=== PATIENT | female | born 1960 | race African-American/Black ===

== ENCOUNTER 2016-07-24 12:14 | Inpatient (IN) ==
[2016-07-24] MEDS ORDERED: FUROSEMIDE 100 MG/10 ML VIAL IV STA (12:57)
[2016-07-24] MEDS ORDERED: methylPREDNISolone SOD SUC 125 MG/2 ML VIAL IV STA (12:57)
[2016-07-24] MEDS ORDERED: cefTRIAXone 1,000 MG in SODIUM CHLORIDE 0.9% 100 ML IV STA (12:57)
--- NOTE | 2016-07-24 12:59 | XRay Report ---
XR chest 1V portable Indication: SOB Comparison: Chest x-ray dated June 19, 2016 Technique: Single frontal view of the chest Findings: Marked cardiomegaly. Cardiac pacemaker apparatus again noted. There is mild opacification of the right lung base suspicious for consolidative process such as pulmonary edema or pneumonia. Osseous and surrounding soft tissue structures appear grossly unchanged. IMPRESSION: As above. PROCEDURE INTERPRETED AT [facility] DEPARTMENT OF RADIOLOGY Final Report Signed by: Dr Mickey Wallace
[2016-07-24] MEDS ORDERED: ALBUTEROL 2.5 MG/3 ML NEB RESP TX SCH (13:00)
[2016-07-24 13:12] LABS: ABG Base Excess 1.7 MMOL/L (-2.5-2.5); ABG HCO3 30.6 MMOL/L (20-26); ABG Oxygen Saturation 86.6 % (95-100); ABG PH 7.232 (7.35-7.45); ABG PO2 68.1 MM HG (80-95); ABG TCO2 32.9 MMOL/L (23-27)
[2016-07-24 13:14] LABS: ABG PCO2 74.5 MM HG (35-48)
--- NOTE | 2016-07-24 13:33 | EKG Report ---
Stationary ECG Study [facility] ER Test Date: 07/24/2016 12:32:15 PM Pat Name: BRUCE GONZALEZ Department: Room: Gender: F Superintendent Cemetery: [place] : 1960 Requested by: Ron Reyes Order Number: [id number] Reading MD: CHANEL GUTIERRES Intervals [place] Rate: 63 P: 64 CT: 220 QRS: 85 QRSD: 106 T: 123 QT: 433 QTc: 439 Interpretive Statements SINUS RHYTHM WITH PROLONGED CT INTERVAL POOR R-WAVE PROGRESSION Electronically Signed On 07-24-16 22:43:01 CLIENT SUPPORT REPRESENTATIVE by CHANEL GUTIERRES [email or web address]
[2016-07-24 13:36] LABS: Partial Thromboplastin Time 34.5 SECS (0-40)
[2016-07-24 13:38] LABS: PT Patient Result 21.6 SECS
[2016-07-24 13:39] LABS: Basophils % 0.1 % (0.0-0.8); Hemoglobin 9.7 GM/DL (12.0-16.0); Immature Granulocytes % 0.4 %; Immature Granulocytes Absolute 0.06 #; Lymphocytes # 0.9 10*3/uL (1.4-4.0); Lymphocytes % 6.3 % (21.3-54.2); Mean Corpuscular Hemoglobin 23 PG (27-34); Monocytes # 0.8 10*3/uL (0.11-0.8); Monocytes % 5.7 % (1.7-12.7); Neutrophils # 12.3 10*3/uL (1.4-7.4); Neutrophils % 87.5 % (38.7-73.9); Platelet Count 232 T/CUMM (130-400); Red Blood Count 4.23 MC/CUMM (3.8-5.5); Red Cell Distribution Width 21.8 % (9.3-17.3); White Blood Count 14.1 T/CUMM (4-12)
[2016-07-24] MEDS ORDERED: NALOXONE 0.4 MG/ML VIAL IV STA ×2 (13:41→13:47)
[2016-07-24 13:42] LABS: Hematocrit 34.7 VOL% (35.7-47.0)
[2016-07-24] MEDS ORDERED: methylPREDNISolone SOD SUC 125 MG/2 ML VIAL ONE (13:44)
[2016-07-24] MEDS ORDERED: NALOXONE 0.4 MG/ML VIAL ONE (13:44)
[2016-07-24] MEDS ORDERED: FUROSEMIDE 20 MG/2 ML VIAL ONE (13:44)
--- NOTE | 2016-07-24 13:44 | Emergency Department Note ---
Sybil Tipton Brittany, am scribing for, and in the presence of, Ron Nieto MD 13:34. Gerson Tipton Charles R, MD, personally performed the services described in this documentation, ascribed by Jadyn Devine in my presence, and it is both accurate and complete 343 . Arrival - Arrival Chief Complaint: Shortness of Breath Stated Complaint: CHF transfer ED Nursing Triage Note: Pt transfer from [facility] for SOB x 2 days. Mode of Arrival: Stretcher Limitations: No Limitations Source: Patient, Family Time Seen by Provider: 07/24/16 12:39 - History of Present Illness HPI Narrative: This is a 55 y/o female,who presents to the ED by EMS with c/o SOB which started yesterday. Her family states pt was seen at [facility] earlier today. Pt denies any chest pain. Her family states pt was admitted here on June 14, 2016 and stayed on the vent for a week. Pt denies being on home oxygen. Pt's family states "the past few days" pt has been sleeping more than normal. She denies any sleeping pills or meds which would make her sleepy. Pt has no other complaints/pain in the ED at this time. Pt has a PMHx of CHF, HTN, pacemaker, depression, COPD, and renal failure. Pt has had a cardiac cath and internal defibrillator. Pt has a family medical Hx of cancer, heart disease, HTN , and stroke. Pt is a current every day smoker. Consistency: constant Severity: moderate Allergies/Adverse Reactions: Allergies Allergy/AdvReac Type Severity Reaction Status Date / Time azithromycin [From Zithromax] AdvReac Severe Gastrointestinal Verified 06/14/16 08:35 Upset nalbuphine [From Nubain] AdvReac Intermediate Cramping Verified 06/14/16 08:35 of the Muscles Home Medications: Home Medications Medication Instructions Recorded Confirmed Type Digoxin Tab [Lanoxin Tab] 0.125 mg PO DAILY@1300 tablet 02/07/16 06/14/16 Rx Aspirin EC Tab 325 mg PO DAILY 04/06/16 06/14/16 History Carvedilol 3.125 mg PO BID 04/06/16 06/14/16 History Spironolactone [Aldactone] 25 mg PO DAILY 04/06/16 06/14/16 History hydrALAZINE TAB [Apresoline Tab] 10 mg PO Q8HR 04/06/16 06/14/16 History Furosemide Tab [Lasix Tab] 80 mg PO BID DIURETIC 06/14/16 06/14/16 History Isosorbide Mononitrate [Imdur] 30 mg PO DAILY 06/14/16 06/14/16 History Sacubitril/Valsartan [Entresto 24 1 each PO DAILY 06/14/16 06/14/16 History mg-26 mg Tablet] Review of System - Review of System 12 point system: reviewed and no additional remarkable complaints except as stated - Review of System Cardiovascular: Present: dyspnea on exertion. Absent: chest pain Medical,Surgical,& Family Hx - Medical History Cardio: History of: CHF (nonischemic cardiomyopathy, chronic), Hypertension, Pacemaker (icd, dual-chamber) No history of: Aneurysm, Cardiac Dysrhythmia Psychological: History of: Depression Respiratory: History of: COPD (she has pulmonary hypertension and severe tricuspid regurgitation) Renal: History of: Renal Failure (creatinine today is 2.2) No history of: Renal Problems - Surgical History Cardiac Surgeries: Sugical HX of: Cardiac Catheterization (no stent films not available done years ago at [place]), Internal Defibrillator (status post dual- chamber ICD by Dr. Sampson) Reproductive Surgeries: Patient denies;: Genitourinary Surgery - Family History Family History: Reports;: Family Cancer, Family Heart Disease, Family Hypertension, Family Stroke - Social History Smoking Status: Current every day smoker Exam Vital Signs: Vital Signs Temperature 97.2 F L 07/24/16 12:29 Pulse Rate 63 07/24/16 12:30 Respiratory Rate 25 H 07/24/16 12:30 Blood Pressure 88/49 07/24/16 12:30 O2 Sat by Pulse Oximetry 88 L 07/24/16 12:30 - General General appearance: alert, in distress, other (AMS) - Head Head exam: Present: other (Quintanilla's Palsy appearing ) - Eye Eye exam: Present: normal appearance, PERRL, EOMI - ENT ENT exam: Present: normal exam, normal oropharynx, mucous membranes moist - Neck Neck exam: Present: normal inspection, full ROM, trachea midline. Absent: tenderness, thyromegaly - Chest Chest inspection: Present: normal inspection, symmetric chest wall rise. Absent : tenderness, rash, abscess - Respiratory Respiratory exam: Present: rales, rhonchi, other (Tachypnea breathing as well as kussaloal Breathing, per ) - Cardiovascular Cardiovascular exam: Present: regular rate, normal rhythm, normal heart sounds. Absent: murmur, rubs, gallop, clicks - Abdominal Exam Abdominal exam: Present: soft, normal bowel sounds. Absent: distention, tenderness, guarding, rebound, rigidity - Extremities Exam Extremities exam: Present: normal inspection, full ROM, normal capillary refill. Absent: tenderness, pedal edema, joint swelling, calf tenderness - Back Exam Back exam: Present: normal inspection, full ROM. Absent: tenderness, muscle spasm, rashes - Neurological Exam Neurological exam: Present: alert, oriented X3, CN II-XII intact, reflexes normal. Absent: motor sensory deficit - Psychiatric Psychiatric exam: Present: normal affect, normal mood. Absent: depressed, agitated, anxious - Skin Skin exam: Present: warm, dry, intact, normal color. Absent: rash, cyanosis, diaphoresis Course - Consultations Consultation #1: Hospitalist will admit patient Time: 13:40 Results - Labs CBC & BMP: 07/24/16 12:52 07/24/16 13:45 Lab Results: I have reviewed the patients labs Labs: All labs reviewed from previous facility Critical Care Time Critical Care Time: Yes Total Critical Care Time: 60 Disposition Clinical Impression: Tobacco abuse, COPD (chronic obstructive pulmonary disease), Nonischemic cardiomyopathy, Congestive heart failure, NYHA class 4, Respiratory distress, Weakness, Congestive heart failure, Acute exacerbation of chronic obstructive airways disease, Acute respiratory acidosis, ejection fraction 15%, Narcotic abuse, Hypercapnia Case discussed with: patient, patient's family Disposition: Still a Patient Condition: Critical Time of Disposition: 13:43
[2016-07-24 13:46] LABS: Albumin 3.1 G/DL (3.4-5.0); Bilirubin,Total 1.8 MG/DL (0.2-1.0); Calcium 8.4 MG/DL (8.5-10.1); Magnesium 2.5 MG/DL (1.8-2.4); Osmolality,Calculated 296.1 MOS/KG (273-304); Potassium 4.5 MMOL/L (3.5-5.1); Troponin I Only 0.045 NG/ML (0.00-0.045)
[2016-07-24] MEDS ORDERED: ONDANSETRON 4 MG/2 ML VIAL IV PRN (13:57)
[2016-07-24] MEDS ORDERED: DOCUSATE SODIUM 100 MG CAPSULE PO PRN (13:57)
[2016-07-24] MEDS ORDERED: cefTRIAXone 1,000 MG in SODIUM CHLORIDE 0.9% 100 ML IV SCH (14:00)
--- NOTE | 2016-07-24 14:08 | Hospitalist History & Physical ---
Assessment and Plan - Time spent with patient Time spent with patient: Greater than 30 minutes (due to assessment, plan and documentation) (1) Acute respiratory failure Status: Acute Assessment and plan: admit to unit rocephin, solumedrol pulmonary consult Current Visit: No (2) Narcotic abuse Status: Acute Current Visit: Yes History of Present Illness Chief complaint: sent from [facility] for SOB History of present illness: Ms. Corona is a 55 year old female who was sent from [facility] for shortness of breath. She was treated with a duoneb there. She is very short of breath and is on an hour long neb at this time, and may end up requiring intubation for her acute respiratory failure. Lungs very course. She is being given Lasix, solumedrol, rocephin and narcan. She was given Narcan after there were records found that she has abused opiates before. After administration of Narcan, she became more alert, thrashing about in the bed, and screaming incoherently. There is no family in the room for history. According to her medications, she has a hx of likely heart failure, and HTN. She will be admitted to the ICU for close observation. Further plan and addendum to follow by Dr. Ashley Valle. Home Medications Medication Instructions Recorded Confirmed Type Digoxin Tab [Lanoxin Tab] 0.125 mg PO DAILY@1300 tablet 02/07/16 06/14/16 Rx Aspirin EC Tab 325 mg PO DAILY 04/06/16 06/14/16 History Carvedilol 3.125 mg PO BID 04/06/16 06/14/16 History Spironolactone [Aldactone] 25 mg PO DAILY 04/06/16 06/14/16 History hydrALAZINE TAB [Apresoline Tab] 10 mg PO Q8HR 04/06/16 06/14/16 History Furosemide Tab [Lasix Tab] 80 mg PO BID DIURETIC 06/14/16 06/14/16 History Isosorbide Mononitrate [Imdur] 30 mg PO DAILY 06/14/16 06/14/16 History Sacubitril/Valsartan [Entresto 24 1 each PO DAILY 06/14/16 06/14/16 History mg-26 mg Tablet] Allergies Allergy/AdvReac Type Severity Reaction Status Date / Time azithromycin [From Zithromax] AdvReac Severe Gastrointestinal Verified 06/14/16 08:35 Upset nalbuphine [From Nubain] AdvReac Intermediate Cramping Verified 06/14/16 08:35 of the Muscles Medical,Surgical,& Family Hx - Medical History Cardio: History of: CHF (nonischemic cardiomyopathy, chronic), Hypertension, Pacemaker (icd, dual-chamber) No history of: Aneurysm, Cardiac Dysrhythmia Psychological: History of: Depression Respiratory: History of: COPD (she has pulmonary hypertension and severe tricuspid regurgitation) Renal: History of: Renal Failure (creatinine today is 2.2) No history of: Renal Problems - Surgical History Cardiac Surgeries: Sugical HX of: Cardiac Catheterization (no stent films not available done years ago at [place]), Internal Defibrillator (status post dual- chamber ICD by Dr. Sampson) Reproductive Surgeries: Patient denies;: Genitourinary Surgery - Family History Family History: Reports;: Family Cancer, Family Heart Disease, Family Hypertension, Family Stroke - Social History Smoking Status: Current every day smoker Frequency of Alcohol Use: Unknown Type of Drug Use: Unknown Marital Status: Unknown Functional capacity: independent ambulation ROS unobtainable: due to mental status (she is combative and agitated at this time. ) Exam - Constitutional General appearance: normal weight, severe distress (initially.) - Head Head exam: Present: normal inspection, normocephalic - Eye Eye exam: Present: EOMI. Absent: scleral icterus Pupils: Present: TEJINDER, normal accommodation - ENT ENT exam: Present: normal exam, normal oropharynx - Neck Neck exam: Present: normal inspection. Absent: lymphadenopathy - Respiratory Respiratory exam: Present: other (course lung sounds. ) - Cardiovascular Cardiovascular exam: Present: regular rate and rhythm. Absent: carotid bruit - GI/Abdominal GI/Abdominal exam: Present: normal bowel sounds, soft. Absent: tenderness - Extremities Exam Extremities exam: Present: normal inspection. Absent: edema - Back Exam Back exam: Present: normal inspection. Absent: muscle spasm - Neurological Exam Neurological exam: Present: alert, altered - Psychiatric Psychiatric exam: Present: agitated - Skin Skin exam: Present: normal color, warm, dry, intact Results - Labs CBC & BMP: 07/24/16 12:52 07/24/16 13:45 Lab Results: I have reviewed the past 24 hour labs
[2016-07-24] MEDS ORDERED: cefTRIAXone 1,000 MG VIAL ONE (14:24)
[2016-07-24] MEDS ORDERED: SODIUM CHLORIDE 0.9% 100 ML IV ONE (14:24)
[2016-07-24] MEDS ORDERED: ALBUTEROL/IPRATROPIUM 3 ML NEB RESP TX PRN (15:13)
[2016-07-24] MEDS ORDERED: ALBUTEROL/IPRATROPIUM 3 ML NEB RESP TX ONE (15:15)
[2016-07-24 15:36] LABS: ABG HCO3 31.6 MMOL/L (20-26); ABG Oxygen Saturation 89.7 % (95-100); ABG PH 7.256 (7.35-7.45); ABG PO2 73.2 MM HG (80-95); ABG TCO2 33.8 MMOL/L (23-27)
[2016-07-24 15:38] LABS: ABG PCO2 72.7 MM HG (35-48)
[2016-07-24] MEDS ORDERED: FUROSEMIDE 40 MG/4 ML VIAL IV ONE (15:48)
[2016-07-24] MEDS: PIPERACILLIN/TAZOBACTAM 3,375 MG in SODIUM CHLORIDE 0.9% 100 ML IV SCH ×2 (16:52→23:36)
[2016-07-24] MEDS: ENOXAPARIN 30 MG/0.3 ML SYRINGE SUBCUT SCH (16:52)
[2016-07-24] MEDS: CARVEDILOL 3.125 MG TABLET PO SCH (17:01)
--- NOTE | 2016-07-24 17:02 | Ultrasound Report ---
Exam: Bilateral lower extremity venous Doppler ultrasound Comparison: 10/07/2015 Clinical history: Leg edema, heart failure Technique: Duplex scan of the lower extremity veins using B-mode/grayscale scaled imaging and Doppler spectral analysis and color flow. Findings: Major venous structures of the lower extremities demonstrate a normal course and caliber. Normal color-flow study and spectral analysis. There is normal compression and augmentation of bilateral common femoral, superficial femoral and popliteal veins. The proximal bilateral greater saphenous veins appear to be patent. Impression: No evidence to suggest deep venous thrombosis within either lower extremity. Ultrasound images were captured and stored. PROCEDURE INTERPRETED AT [facility] DEPARTMENT OF RADIOLOGY Final Report Signed by: Dr. Tarsha Parmar
[2016-07-24] MEDS: LACTULOSE 20 GM/30 ML UDCUP PO SCH ×2 (18:00→23:42)
[2016-07-24] MEDS ORDERED: FUROSEMIDE 100 MG/10 ML VIAL ONE (19:57)
[2016-07-24] MEDS: ALBUTEROL/IPRATROPIUM 3 ML NEB RESP TX SCH ×2 (19:59→23:40)
[2016-07-24] MEDS: FUROSEMIDE 40 MG/4 ML VIAL IV SCH (20:01)
[2016-07-24] MEDS: methylPREDNISolone SOD SUC 40 MG/1 ML VIAL IV SCH (20:01)
[2016-07-24 20:05] LABS: ABG Base Excess 2.1 MMOL/L (-2.5-2.5); ABG HCO3 31.5 MMOL/L (20-26); ABG Oxygen Saturation 91.4 % (95-100); ABG PH 7.218 (7.35-7.45); ABG TCO2 33.9 MMOL/L (23-27); Pt O2 Delivery Device BIPAP
--- NOTE | 2016-07-24 20:21 | Pulmonology Consult Note ---
History of Present Illness Chief complaint: Acute on chronic respiratory failure for oxygen and carbon dioxide. CHF History of present illness: Ms. Corona is a 55 year old black female transferred here from [facility]. She has respiratory failure for carbon dioxide and oxygen. I been asked to see in pulmonary consultation. This patient is not particularly interested in answer my questions. She can be aroused. Present her review of systems is noncontributory. The patient's daughter told Dr. Nikole Ayala as far as she knew the patient been doing well at home. She developed diarrhea. As far she knows to make patient been taken her medicines properly. She developed an altered mental status. At this point the remainder the review of systems is 9 contributory except the patient was given Narcan and this seemed to help her from a mentation standpoint but it was not long-lasting. Allergies. And Zithromax Home medicines. Lanoxin. Aspirin. Coreg. Aldactone. Apresoline. Lasix 80 mg p.o. twice daily. Immature 30 mg daily. Entresto Past history. Patient was here in March 2016 under the care of Dr. Callejas and Dr. Dang. She had a diagnosis of chronic nonischemic cardiomyopathy. High blood pressure. Cardiac pacemaker. Also a history of depression and COPD. She has had pulmonary hypertension with severe tricuspid regurgitation. During her last hospitalization I do not see any ABGs. Her last hospitalization her creatinines were about 1.4. Today they are elevated 2.2. Family history. Positive for heart disease high blood pressure stroke and cancer. Social history patient is a cigarette smoker who continues to smoke. Chest x-ray. Core bovine this is a portable film. Patient appears to have increased markings at the right base. The left base is not seen. There appears to be central vascular enlargement or engorgement. I reviewed x-rays going back to January 2016. These findings come and go which makes me think we are dealing with pulmonary edema. ABGs. FiO2 45%. PH 7.256. PCO2 72.7. PO2 73.2. Bicarb 31.6. Repeat ABGs. FiO2 45%. BiPAP. PH is 7.218. PCO2 is 79. PO2 is 80. Bicarb is 31.5 Review of previous ABGs. On 02/04/2016 on FiO2 28% pH was 7.32. PCO2 was 58.8. PO2 is 25.9. Bicarb was 28. On 02/07/2016 room air blood gases showed a pH of 7.31. PCO2 52.4. PO2 35.4. Bicarb of 23.9. Lab. H&H is 9.7/34.7. White count is 14,100. Platelets are 233,000. Creatinine is 2.3. In March 2016 the creatinine was 1.2. Total bilirubin is 1.8. AST is elevated. ALT is normal. Alkaline phosphatase mildly elevated at 159. Ammonia level is elevated at 46. Natruretic peptide is 4202. Total protein is 7. Albumin is low at 3.1. Globulins are elevated 3.9. Dig level is elevated Physical exam. Vital signs. See below Neuropsychiatric. Arousable. Sleepy. Not a willing historian. Chest. I cannot hear wheezes or rales. Heart. Far lateral PMI. Abdomen. Nondistended. Extremities. Nothing to suggest deep venous thrombophlebitis. Note Doppler venograms and negative for deep venous thrombophlebitis. Neck. No meningismus. Lymphatics. No submandibular cervical supraclavicular or epitrochlear adenopathy. Face. Symmetrical. The remainder the physical exam is noncontributory. Impression. 1. Severe nonischemic cardiomyopathy with a very low ejection fraction. 2. COPD with respiratory failure for oxygen and carbon dioxide. This patient to be appears to be a CO2 retainer may do better with a lower FiO2. 3. Tobacco abuser who continues to smoke 4. Dig toxicity 5. Acute renal failure. Consider the possibility dehydration could be involved. Consider the possibility of BARBRA inhibitors. 7. See past history 8. Mild liver failure. Plan. 1. Decrease FiO2 to 25% and repeat ABGs in 30 minutes 2. Patient has been on Lasix 80 mg p.o. twice daily. She has not had a dose yet. I will start this at 80 IV push every 12 hours unless cardiology thinks otherwise. 3. Cardiology consultation. 4. Consider renal consultation. 5. Sputum for Gram stain culture sensitivityABGs ABGs. Cold agglutinins. Legionella titer. 6. Daily chest x-ray and ABGs. 7. Agree with antibiotics and steroids on the chance that we are dealing with pneumonia. 6. Daily chest x-ray and ABGs. Daily lab. 7. See orders. Home Medications Medication Instructions Recorded Confirmed Type Aspirin EC Tab 325 mg PO DAILY 04/06/16 07/24/16 History Carvedilol 3.125 mg PO BID W/MEALS 04/06/16 07/24/16 History Spironolactone [Aldactone] 25 mg PO DAILY 04/06/16 07/24/16 History hydrALAZINE TAB [Apresoline Tab] 10 mg PO Q8HR 04/06/16 07/24/16 History Furosemide Tab [Lasix Tab] 80 mg PO BID 06/14/16 07/24/16 History Isosorbide Mononitrate [Imdur] 15 mg PO DAILY 06/14/16 07/24/16 History Digoxin Tab [Lanoxin Tab] 0.125 mg PO DAILY 07/24/16 07/24/16 History Sacubitril/Valsartan [Entresto 49 1 each PO DAILY 07/24/16 07/24/16 History mg-51 mg Tablet] Allergies Allergy/AdvReac Type Severity Reaction Status Date / Time azithromycin [From Zithromax] AdvReac Severe Gastrointestinal Verified 06/14/16 08:35 Upset nalbuphine [From Nubain] AdvReac Intermediate Cramping Verified 06/14/16 08:35 of the Muscles Exam (Pulmonay) H&P - Constitutional Vitals: Period Temp Pulse Resp BP Sys/Philippe Pulse Ox Last 24 Hr 97.2 F-98.2 F 57-71 16-30 82-122/39-70 87-100 Medical,Surgical,& Family Hx - Medical History Cardio: History of: Cardiac Dysrhythmia, CHF (nonischemic cardiomyopathy, chronic), Hypertension, Pacemaker (icd, dual-chamber) No history of: Aneurysm Psychological: History of: Depression Rheumatology: History of;: Gout Respiratory: History of: COPD (she has pulmonary hypertension and severe tricuspid regurgitation), Pulmonary Hypertension Renal: History of: Renal Failure (creatinine today is 2.2) No history of: Dialysis, Renal Problems Musculoskeletal: No history of: Amputation Hematology: History of: Anemia (NOT CURRENT) - Surgical History Cardiac Surgeries: Sugical HX of: Cardiac Catheterization (no stent films not available done years ago at [place]), Internal Defibrillator (status post dual- chamber ICD by Dr. Sampson) Thoracic Surgeries: Patient denies;: Organ Transplant Abdominal Surgeries: Patient denies: Abdominal Surgery Reproductive Surgeries: Patient denies;: Genitourinary Surgery, Gynecologic Surgery - Family History Family History: Reports;: Family Cancer, Family Diabetes, Family Heart Disease, Family Hypertension, Family Stroke Denies;: Family Hematology, Family Psychiatric Problems, Additional Family History - Social History Smoking Status: Current every day smoker Frequency of Alcohol Use: None Type of Drug Use: Unknown Results - Labs CBC & BMP: 07/24/16 12:52 07/24/16 13:45
[2016-07-24 20:55] LABS: ABG Base Excess 2.1 MMOL/L (-2.5-2.5); ABG HCO3 31.3 MMOL/L (20-26); ABG Oxygen Saturation 83.5 % (95-100); ABG PH 7.223 (7.35-7.45); ABG PO2 62.5 MM HG (80-95); ABG TCO2 33.7 MMOL/L (23-27)
[2016-07-24 20:57] LABS: ABG PCO2 77.8 MM HG (35-48)
[2016-07-24] MEDS ORDERED: FUROSEMIDE 80 MG TABLET PO SCH (21:00)
[2016-07-24] MEDS: DEXTROSE 5% NACL 0.9% 1,000 ML IV SCH (21:16)
[2016-07-24] MEDS: hydrALAZINE 10 MG TABLET PO SCH (21:19)
[2016-07-24] MEDS ORDERED: SODIUM CHLORIDE 0.9% 500 ML IV ONE (22:40)
[2016-07-24] MEDS: DOBUTamine 500 MG/250 ML PREMIX IV SCH (23:38)
[2016-07-25] MEDS: methylPREDNISolone SOD SUC 40 MG/1 ML VIAL IV SCH ×4 (01:15→19:00)
[2016-07-25] MEDS: ALBUTEROL/IPRATROPIUM 3 ML NEB RESP TX SCH ×6 (03:29→23:22)
[2016-07-25 03:38] LABS: ABG Base Excess 1.3 MMOL/L (-2.5-2.5); ABG HCO3 25.4 MMOL/L (20-26); ABG Oxygen Saturation 88.1 % (95-100); ABG PCO2 68.8 MM HG (35-48); ABG TCO2 28.1 MMOL/L (23-27); Pt O2 Delivery Device BIPAP
[2016-07-25] MEDS: hydrALAZINE 10 MG TABLET PO SCH ×3 (05:10→21:11)
[2016-07-25 05:31] LABS: Basophils % 0.1 % (0.0-0.8); Immature Granulocytes % 0.3 %; Immature Granulocytes Absolute 0.03 #; Lymphocytes # 0.7 10*3/uL (1.4-4.0); Lymphocytes % 6.7 % (21.3-54.2); Mean Corpuscular HGB Conc 27.2 GM/DL (32-36); Mean Corpuscular Hemoglobin 23 PG (27-34); Mean Corpuscular Volume 82.7 FL (87-102); Mean Platelet Volume 9.9 FL (9.6-12.0); Monocytes # 0.4 10*3/uL (0.11-0.8); Monocytes % 3.2 % (1.7-12.7); NRBC # 0.07 10*3/uL; Neutrophils # 9.9 10*3/uL (1.4-7.4); Neutrophils % 89.7 % (38.7-73.9); Platelet Count 223 T/CUMM (130-400); Red Blood Count 4.22 MC/CUMM (3.8-5.5); Red Cell Distribution Width 21.9 % (9.3-17.3); White Blood Count 11.1 T/CUMM (4-12)
[2016-07-25 05:38] LABS: Hematocrit 34.2 VOL% (35.7-47.0); Hemoglobin 9.6 GM/DL (12.0-16.0)
[2016-07-25 05:45] LABS: Magnesium 2.4 MG/DL (1.8-2.4)
[2016-07-25 05:49] LABS: Polychromasia Slight
[2016-07-25 05:50] LABS: Hypochromasia 1+; Microcytosis 2+; Target Cells Slight
[2016-07-25 05:51] LABS: Spherocytes Slight
[2016-07-25 05:52] LABS: Macrocytosis Slight
[2016-07-25] MEDS: LACTULOSE 20 GM/30 ML UDCUP PO SCH ×2 (05:52→13:35)
[2016-07-25 06:00] LABS: Calcium 7.8 MG/DL (8.5-10.1); Magnesium 2.5 MG/DL (1.8-2.4); Osmolality,Calculated 306.7 MOS/KG (273-304)
[2016-07-25 06:20] LABS: Albumin 2.6 G/DL (3.4-5.0); Bilirubin,Total 1.3 MG/DL (0.2-1.0); Calcium 7.5 MG/DL (8.5-10.1); Osmolality,Calculated 305.7 MOS/KG (273-304); Potassium 4.2 MMOL/L (3.5-5.1); Total Protein 6.4 G/DL (6.4-8.3)
--- NOTE | 2016-07-25 07:28 | XRay Report ---
XR chest 1V portable Indication: SOB Comparison: Chest x-ray dated July 24, 2016 Technique: Single frontal view of the chest Findings: Continued marked cardiomegaly. Redemonstration of hazy opacification within the right lower lung suspicious for pulmonary edema or pneumonia. There is a small left pleural effusion. Osseous and surrounding soft tissue structures appear grossly unchanged. Cardiac pacemaker apparatus again noted. IMPRESSION: As above. PROCEDURE INTERPRETED AT [facility] DEPARTMENT OF RADIOLOGY Final Report Signed by: Dr Mickey Wallace
--- NOTE | 2016-07-25 08:30 | Hospitalist Progress Note ---
Assessment and Plan (1) Congestive heart failure, NYHA class 4 Status: Chronic Assessment and plan: 1)exacerbation of chronic resp failure from COPD with co2 narcosis- pCO2 is coming down, she is alert and oriented now with mentation back to baseline. On antibotics, steroids, nebs, follow cultures and stop antibiotics if cultures negative. BIPAP is gradually lowering her pCO2, continue as set, with breaks for meals. 2)severe cardiomyopathy with class 4 CHF- she has some LE edema, and some pulm edema, but overall she is not dramatically volume overloaded. She and her daughter say she has been doing well at home prior to the diarrhea. She was not having shortness of breath more than her baseline. Dobutamine helped to improve her UOP with improved cardiac output. Held for now because of some PVCs. DR Callejas to see this morning. 3)YVONNE- her creatinine was 0.6 when discharged 2 weeks ago. I think this is due to cardiorenal syndrome and dehydration from diarrhea. monitor, UOP picking up. 4)smoking- counselled cessation 5)AICD 6)elevated bili, transaminases, ammonia- I added lactulose yesterday in case her ammonia which was a little elevated was contributing to her altered mental status. She has passive congestion of her liver from her heart failure. Current Visit: Yes Qualifiers: Congestive heart failure type: unspecified congestive heart failure type Qualified Code(s): I50.9 - Heart failure, unspecified (2) Tobacco abuse Status: Chronic Current Visit: Yes (3) ICD (implantable cardioverter-defibrillator) in place Status: Chronic Current Visit: No (4) Nonischemic cardiomyopathy Status: Chronic Current Visit: Yes (5) Acute exacerbation of chronic obstructive airways disease Status: Acute Current Visit: Yes (6) Acute respiratory acidosis Status: Acute Current Visit: Yes (7) Digoxin toxicity Status: Acute Current Visit: Yes (8) CO2 narcosis Status: Acute Current Visit: Yes Hospitalist: Subjective Interval history: Mrs Corona looks better this morning. She remains alert and comfortable, with sats aroudn 90 on BIPAP. Dobutamine was started around 3am when her BP dropped. A 500 cc bolus was also given. Her Bp improved and her UOP increased also. Prior to that she had very little urine out despite IV lasix. She denies pain. She had one diarrheal stool yesterday but cultures Cdiff and O& P were not collected. No pain, no nausea. Wants breakfast. Exam - Constitutional Vitals: Period Temp Pulse Resp BP Sys/Philippe Pulse Ox Last 24 Hr 97.2 F-98.4 F 57-74 10-30 68-131/39-70 84-100 General appearance: normal weight, no acute distress - Head Head exam: Present: normocephalic, atraumatic - Eye Eye exam: Present: EOMI. Absent: scleral icterus - Respiratory Respiratory exam: Present: rales, rhonchi - Cardiovascular Cardiovascular exam: Present: regular rate and rhythm - GI/Abdominal GI/Abdominal exam: Present: normal bowel sounds, soft. Absent: tenderness - Extremities Exam Extremities exam: Present: edema (in LE to thighs, not severe) - Neurological Exam Neurological exam: Present: alert, oriented X3 - Skin Skin exam: Present: warm, dry Results - Labs CBC & BMP: 07/25/16 05:03 07/25/16 05:02 Lab Results: I have reviewed the past 24 hour labs
[2016-07-25] MEDS ORDERED: FUROSEMIDE 20 MG/2 ML VIAL ONE (08:35)
[2016-07-25] MEDS: ASPIRIN EC 325 MG TABLET PO SCH (08:43)
[2016-07-25] MEDS: PANTOPRAZOLE 40 MG TABLET PO SCH (08:44)
[2016-07-25] MEDS: ISOSORBIDE MONONITRATE 30 MG TABLET PO SCH (08:44)
[2016-07-25] MEDS: SPIRONOLACTONE 25 MG TABLET PO SCH (08:44)
[2016-07-25] MEDS: SACUBITRIL/VALSARTAN 49-51 MG TABLET PO SCH (08:44)
[2016-07-25] MEDS: FUROSEMIDE 40 MG/4 ML VIAL IV SCH ×2 (08:45→17:00)
[2016-07-25 10:32] LABS: Allen Test Positive
[2016-07-25 10:33] LABS: ABG Base Excess 3.1 MMOL/L (-2.5-2.5); ABG HCO3 26.9 MMOL/L (20-26); ABG Oxygen Saturation 84.9 % (95-100); ABG PCO2 66.9 MM HG (35-48); ABG PO2 58.6 MM HG (80-95); ABG TCO2 29.2 MMOL/L (23-27)
--- NOTE | 2016-07-25 10:57 | Pulmonology Progress Note ---
Pulmonary - PN: Subj Interval history: This is a 55-year-old black female whom I saw in pulmonary consultation on the night of 07/24/2016. I thought that her main problems were. 1. Severe nonischemic cardiomyopathy with a very low ejection fraction. 2. COPD with respiratory failure for oxygen and carbon dioxide. This patient to be appears to be a CO2 retainer may do better with a lower FiO2. 3. Tobacco abuser who continues to smoke 4. Dig toxicity 5. Acute renal failure. Consider the possibility dehydration could be involved. Consider the possibility of BARBRA inhibitors. 7. See past history 8. Mild liver failure with elevated ammonia level.. 07/25/2016. Today's chest x-ray is about the same. Patient has core bovine. There are increased right perihilar and right lower lung markings which I think are probably congestive heart failure. She was started on dobutamine last night and also given Lasix and has begun to diurese. Her creatinine is 2.30. This is higher than it has recently been when she has been in the hospital. Electrolytes are normal. Natruretic peptide is fallen from 4202 2 2947. Dig level is dropped from 2.5-1.8. ABGs this morning on FiO2 of 30% and BiPAP show a pH of 7.25. PCO2 is 68.8. PO2 is 66. Bicarb is 25.4 later on the on FiO2 30 2. and no BiPAP. PH was 7.28. PCO2 was 66.9. PO2 is 58.6. Bicarb was 26.9. I think the patient can bypass the BiPAP for the present time. I think will gradually be able to decrease her FiO2. She will seek the same level of oxygenation but breathe faster lower FiO2. Patient's more alert this morning. I have days discussed the case with Dr. Ayala and we are coordinating care. Physical exam. Vital signs. See below Psychiatric. Much more alert. At times the patient is cooperative. Face is symmetrical. Patient has an element of exophthalmos Neck. Symmetrical. No mass Lymphatics. No submandibular cervical supraclavicular adenopathy. No epitrochlear adenopathy. Chest. Mild large airway congestion. No wheezes. Heart. Far lateral PMI Abdomen. Rare bowel sounds. Extremities. Nothing to suggest deep venous thrombophlebitis. Doppler venograms dated 07/24/2016 are negative for deep venous thrombophlebitis. Neurologic. Cranial nerves appear to be intact. Patient moves all fours. The remainder of the physical exam is negative. Plan. 1. Decrease FiO2 to 2 L/min. 2. Patient's on Lasix and dobutamine. 3. Cardiology consultation. 4. Consider renal consultation. Acute renal failure 5. Sputum for Gram stain culture Cold agglutinins. Legionella titer. 6. Daily chest x-ray and ABGs. 7. Agree with antibiotics and steroids on the chance that we are dealing with pneumonia. 6. Daily chest x-ray and ABGs. Daily lab. TSH 7. See orders. Exam (Progress Note) - Constitutional Vitals: Period Temp Pulse Resp BP Sys/Philippe Pulse Ox Last 24 Hr 97.2 F-98.4 F 57-74 10-30 68-131/39-70 84-100 Results - Labs CBC & BMP: 07/25/16 05:03 07/25/16 05:02
--- NOTE | 2016-07-25 11:10 | Cardiology Consult Note ---
Zara Tipton April RN, am scribing for, and in the presence of, Tom Callejas MD 11:06. Assessment and Plan - Time spent with patient Time spent with patient: Greater than 30 minutes (due to assessment, planning, and documentation) (1) Acute respiratory acidosis Status: Acute Assessment and plan: This may have been secondary to narcotics, or it could've been related to using 100% nonrebreather during transport. This appears to be improving. Current Visit: Yes (2) Congestive heart failure Status: Acute Current Visit: Yes (3) Digoxin toxicity Status: Acute Assessment and plan: This has resolved. Her digoxin level is normal today. Current Visit: Yes (4) Nonischemic cardiomyopathy Status: Chronic Assessment and plan: EF 15% by ECHO 06/14/16 with advanced diastolic dysfunction and severe tricuspid regurgitation. 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 Actually, her heart failure appears to be relatively well compensated right now. Current Visit: Yes (5) Tobacco abuse Status: Chronic Current Visit: Yes (6) ICD (implantable cardioverter-defibrillator) in place Status: Chronic Assessment and plan: This appears to be functioning normally. Current Visit: No History of Present Illness - Data of Consult Patient: known to practice within the last 3 years Consult date: 07/24/16 Requesting Physician: Ashley Valle - Consult Narrative Reason for consult: shortness of breath History of present illness: Ms. Corona is a 55 year old female who is followed by Dr. Valadez with a history of CHF, renal failure, COPD, NICM, paroxysmal atrial fibrillation, and syncopal episodes. She had ICD placed at [facility] in 2012. She is a poor historian and was somewhat drowsy today so much of this information is obtained from previous records. She is a highly complicated, critically ill patient who was seen in the intensive care unit. According to the record, she was doing well at home but began having some diarrhea. She was taken to her local hospital for evaluation. The patient has severe class IV congestive heart failure at baseline, and was transferred from [facility] for "shortness of breath". Apparently, she was placed on 100% nonrebreather during transport, which contributed to CO2 narcosis on arrival here. She was apparently very lethargic. She was given Lasix, Solumedrol, Rocephin, and Narcan (records had shown previous opiate abuse). Apparently she became more alert after being given Narcan. The patient denies being short of breath on admission, says that she came to the hospital because she "felt bad". She denies having any chest pain. She has had very little urine output, and was started on dobutamine for low blood pressure. She had been in sinus rhythm, but after the dobutamine was started she has had periods of bigeminy. Magnesium is 2.5 and potassium is 4.0. Digoxin level was 2.5 on admission and is now 1.8. She is on BiPap and sats are in the 90's. She has an internal cardiac defibrillator and there have been no defibrillator shocks or problems according to the patient. Current Medications Acetaminophen (Tylenol Tab) 325 mg PO Q4H PRN PRN Reason: fever, headache/body aches Albuterol/Ipratropium (Duoneb) 3 ml RESP TX RT Q6H PRN PRN Reason: Shortness of Breath/Wheezing Albuterol/Ipratropium (Duoneb) 3 ml RESP TX RT Q4H [facility] Last Admin: 07/25/16 07:17 Dose: 3 ml Aspirin () 325 mg PO DAILY [facility] Carvedilol (Coreg) 3.125 mg PO BID W/MEALS [facility] Last Admin: 07/24/16 17:01 Dose: Not Given Clorazepate Dipotassium (Tranxene) 3.75 mg PO BID PRN PRN Reason: Anxiety Docusate Sodium (Colace Cap) 100 mg PO BID PRN PRN Reason: Constipation Enoxaparin Sodium (Lovenox) 30 mg SUBCUT Q24H [facility] Last Admin: 07/24/16 16:52 Dose: 30 mg Furosemide (Lasix Inj) 80 mg IV BID [facility] Last Admin: 07/24/16 20:01 Dose: 80 mg Hydralazine HCl (Apresoline Tab) 10 mg PO Q8HR [facility] Last Admin: 07/25/16 05:10 Dose: Not Given Piperacillin Sod/Tazobactam (Sod 3,375 mg/ Sodium Chloride) 100 mls @ 25 mls/ hr IV Q8H [facility] Last Infusion: 07/25/16 05:10 Dose: Infused Dextrose/Sodium Chloride (D5 Ns) 1,000 mls @ 75 mls/hr IV .[id number] [facility] Last Admin: 07/24/16 21:16 Dose: 75 mls/hr Dobutamine HCl/Dextrose () 500 mg in 250 mls @ 3.771 mls/hr IV TITRATE MONSE; 2 MCG/KG/MIN PRN Reason: Protocol Last Titration: 07/25/16 03:04 Dose: 10.23 mcg/kg/min, 19.3 mls/hr Isosorbide Mononitrate (Imdur) 15 mg PO DAILY [facility] Lactulose (Chronulac) 20 gm PO Q6HR [facility] Last Admin: 07/25/16 05:52 Dose: Not Given Methylprednisolone Sodium Succinate (Solumedrol) 40 mg IV Q6H [facility] Last Admin: 07/25/16 05:59 Dose: 40 mg Ondansetron HCl (Zofran Inj) 4 mg IV Q4H PRN PRN Reason: Nausea Pantoprazole Sodium (Protonix Tab) 40 mg PO DAILY [facility] Spironolactone (Aldactone) 25 mg PO DAILY [facility] CC: Ashley Valle MD - Home Medications and Allergies Home Medications: Home Medications Medication Instructions Recorded Confirmed Type Aspirin EC Tab 325 mg PO DAILY 04/06/16 07/24/16 History Carvedilol 3.125 mg PO BID W/MEALS 04/06/16 07/24/16 History Spironolactone [Aldactone] 25 mg PO DAILY 04/06/16 07/24/16 History hydrALAZINE TAB [Apresoline Tab] 10 mg PO Q8HR 04/06/16 07/24/16 History Furosemide Tab [Lasix Tab] 80 mg PO BID 06/14/16 07/24/16 History Isosorbide Mononitrate [Imdur] 15 mg PO DAILY 06/14/16 07/24/16 History Digoxin Tab [Lanoxin Tab] 0.125 mg PO DAILY 07/24/16 07/24/16 History Sacubitril/Valsartan [Entresto 49 1 each PO DAILY 07/24/16 07/24/16 History mg-51 mg Tablet] Allergies/Adverse Reactions: Allergies Allergy/AdvReac Type Severity Reaction Status Date / Time azithromycin [From Zithromax] AdvReac Severe Gastrointestinal Verified 06/14/16 08:35 Upset nalbuphine [From Nubain] AdvReac Intermediate Cramping Verified 06/14/16 08:35 of the Muscles - Constitutional Constitutional: Present: as per HPI - EENT Eyes: Absent: blurry vision, loss of vision Ears: Absent: decreased hearing, ear discharge, ear pain Nose, mouth and throat: Absent: epistaxis, headache(s), neck pain, sore throat - Cardiovascular Cardiovascular: Present: dyspnea on exertion, edema. Absent: chest pain at rest , chest pain with activity, radiating jaw, neck or arm pain, palpitations - Respiratory Respiratory: Present: dyspnea on exertion. Absent: cough, hemoptysis - Gastrointestinal Gastrointestinal: Present: diarrhea. Absent: abdominal pain, nausea, vomiting - Genitourinary Genitourinary: Present: other (de leon) - Neurological Neurological: Present: syncope (not currently). Absent: dizziness, frequent falls, headache(s) - Psychiatric Psychiatric: Absent: anxiety, confusion - Endocrine Endocrine: Present: fatigue Medical,Surgical,& Family Hx - Medical History Cardio: History of: Cardiac Dysrhythmia (paroxysmal afib), CHF (nonischemic cardiomyopathy, chronic), Hypertension, Pacemaker (icd, dual-chamber) No history of: Aneurysm Psychological: History of: Depression Rheumatology: History of;: Gout Respiratory: History of: COPD (she has pulmonary hypertension and severe tricuspid regurgitation), Pulmonary Hypertension Renal: History of: Renal Failure No history of: Dialysis, Renal Problems Musculoskeletal: No history of: Amputation Hematology: History of: Anemia (NOT CURRENT) - Surgical History Cardiac Surgeries: Sugical HX of: Cardiac Catheterization (no stent-films not available-done years ago at [facility]), Internal Defibrillator (dual chamber ICD at slab fork ) Thoracic Surgeries: Patient denies;: Organ Transplant Abdominal Surgeries: Patient denies: Abdominal Surgery Reproductive Surgeries: Patient denies;: Genitourinary Surgery, Gynecologic Surgery - Family History Family History: Reports;: Family Cancer, Family Diabetes, Family Heart Disease, Family Hypertension, Family Stroke Denies;: Family Hematology, Family Psychiatric Problems, Additional Family History - Social History Smoking Status: Current some day smoker Have you smoked in the last 12 months: Yes Frequency of Alcohol Use: None Type of Drug Use: None Physical Examination Vital Signs Temp Pulse Resp BP Pulse Ox 97.2 F L 63 26 H 87/47 86 L 07/24/16 12:29 07/24/16 12:29 07/24/16 12:29 07/24/16 12:29 07/24/16 12:29 General: Present: Appears Well, No Apparent Distress HEENT: Present: Mucus Membranes Moist Neck: Present: Supple Neck, Midline Trachea, No JVD/HJR Cardiac: Present: Irregularly Regular (sinus/bigeminy) Lungs: Present: Scattered Rhonchi, Oxygen (BiPap) Neuro: Absent: Essential Tremor Abdomen: Present: Soft, Active Bowel Sounds, Non-Tender Skin: Present: Clear Extremities: Present: Edema (trace to lower extremities) Result/EKG - Labs CBC & BMP: 07/25/16 05:03 07/25/16 05:02 Lab Results: I have reviewed the past 24 hour labs Labs: Laboratory Results - last 24 hr 07/24/16 07/24/16 07/24/16 13:45 15:30 19:46 WBC RBC Hgb Hct MCV MCH MCHC RDW Plt Count MPV Neut % (Auto) Lymph % (Auto) [place] % (Auto) Eos % (Auto) Baso % (Auto) Neut # (Auto) Lymph # (Auto) [place] # (Auto) Eos # (Auto) Baso # (Auto) Immature Gran % Nucleated RBC % Immature Gran # Nucleated RBCs # Polychromasia Hypochromasia Microcytosis Macrocytosis Spherocytes Target Cells Morphology Comment ABG pH 7.256 L 7.218 L ABG pCO2 72.7 H* 79.0 H* ABG pO2 73.2 L 80.0 ABG HCO3 31.6 H 31.5 H ABG Total CO2 33.8 H 33.9 H ABG O2 Saturation 89.7 L 91.4 L ABG Base Excess 3.0 H 2.1 FiO2 45.00 Sodium 142 Potassium 4.5 Chloride 102 Carbon Dioxide 28 Anion Gap 16.5 H BUN 54 H Creatinine 2.30 H GFR Calculation 26 BUN/Creatinine Ratio 23.00 H Glucose 86 Calculated Osmolality 296.1 Calcium 8.4 L Magnesium 2.5 H Total Bilirubin 1.80 H AST 72 H ALT 15 Alkaline Phosphatase 159 H Ammonia Troponin I 0.045 B-Natriuretic Peptide Total Protein 7.0 Albumin 3.1 L Globulin 3.9 H Albumin/Globulin Ratio 0.7 L Free T4 Digoxin Cold Agglutinin Screen 07/24/16 07/24/16 07/24/16 20:50 Unknown Unknown WBC RBC Hgb Hct MCV MCH MCHC RDW Plt Count MPV Neut % (Auto) Lymph % (Auto) [place] % (Auto) Eos % (Auto) Baso % (Auto) Neut # (Auto) Lymph # (Auto) [place] # (Auto) Eos # (Auto) Baso # (Auto) Immature Gran % Nucleated RBC % Immature Gran # Nucleated RBCs # Polychromasia Hypochromasia Microcytosis Macrocytosis Spherocytes Target Cells Morphology Comment ABG pH 7.223 L ABG pCO2 77.8 H* ABG pO2 62.5 L ABG HCO3 31.3 H ABG Total CO2 33.7 H ABG O2 Saturation 83.5 L ABG Base Excess 2.1 FiO2 Sodium Potassium Chloride Carbon Dioxide Anion Gap BUN Creatinine GFR Calculation BUN/Creatinine Ratio Glucose Calculated Osmolality Calcium Magnesium Total Bilirubin AST ALT Alkaline Phosphatase Ammonia Troponin I B-Natriuretic Peptide Total Protein Albumin Globulin Albumin/Globulin Ratio Free T4 1.05 Digoxin Cold Agglutinin Screen Negative 07/25/16 07/25/16 07/25/16 03:21 05:02 05:02 WBC RBC Hgb Hct MCV MCH MCHC RDW Plt Count MPV Neut % (Auto) Lymph % (Auto) [place] % (Auto) Eos % (Auto) Baso % (Auto) Neut # (Auto) Lymph # (Auto) [place] # (Auto) Eos # (Auto) Baso # (Auto) Immature Gran % Nucleated RBC % Immature Gran # Nucleated RBCs # Polychromasia Hypochromasia Microcytosis Macrocytosis Spherocytes Target Cells Morphology Comment ABG pH 7.250 L ABG pCO2 68.8 H ABG pO2 66.0 L ABG HCO3 25.4 ABG Total CO2 28.1 H ABG O2 Saturation 88.1 L ABG Base Excess 1.3 FiO2 30.00 Sodium 145 Potassium 4.2 Chloride 105 Carbon Dioxide 28 Anion Gap 16.2 H BUN 58 H Creatinine 2.30 H GFR Calculation 25 BUN/Creatinine Ratio 25.00 H Glucose 141 H Calculated Osmolality 305.7 H Calcium 7.5 L Magnesium 2.4 Total Bilirubin 1.30 H AST 58 H ALT 13 Alkaline Phosphatase 137 H Ammonia 26 Troponin I B-Natriuretic Peptide Total Protein 6.4 Albumin 2.6 L Globulin 3.8 H Albumin/Globulin Ratio 0.6 L Free T4 Digoxin Cold Agglutinin Screen 07/25/16 07/25/16 07/25/16 05:02 05:03 05:03 WBC 11.1 RBC 4.22 Hgb 9.6 L Hct 34.2 L MCV 82.7 L MCH 23 L MCHC 27.2 L RDW 21.9 H Plt Count 223 MPV 9.9 Neut % (Auto) 89.7 H Lymph % (Auto) 6.7 L [place] % (Auto) 3.2 Eos % (Auto) 0.0 Baso % (Auto) 0.1 Neut # (Auto) 9.9 H Lymph # (Auto) 0.7 L [place] # (Auto) 0.4 Eos # (Auto) 0.0 Baso # (Auto) 0.0 Immature Gran % 0.3 Nucleated RBC % 0.6 Immature Gran # 0.03 Nucleated RBCs # 0.07 Polychromasia Slight Hypochromasia 1+ Microcytosis 2+ Macrocytosis Slight Spherocytes Slight Target Cells Slight Morphology Comment ABG pH ABG pCO2 ABG pO2 ABG HCO3 ABG Total CO2 ABG O2 Saturation ABG Base Excess FiO2 Sodium 145 Potassium 4.0 Chloride 105 Carbon Dioxide 30 Anion Gap 14.0 BUN 61 H Creatinine 2.30 H GFR Calculation 25 BUN/Creatinine Ratio 26.00 H Glucose 142 H Calculated Osmolality 306.7 H Calcium 7.8 L Magnesium 2.5 H Total Bilirubin AST ALT Alkaline Phosphatase Ammonia Troponin I B-Natriuretic Peptide 2947 H Total Protein Albumin Globulin Albumin/Globulin Ratio Free T4 Digoxin Cold Agglutinin Screen 07/25/16 05:03 WBC RBC Hgb Hct MCV MCH MCHC RDW Plt Count MPV Neut % (Auto) Lymph % (Auto) [place] % (Auto) Eos % (Auto) Baso % (Auto) Neut # (Auto) Lymph # (Auto) [place] # (Auto) Eos # (Auto) Baso # (Auto) Immature Gran % Nucleated RBC % Immature Gran # Nucleated RBCs # Polychromasia Hypochromasia Microcytosis Macrocytosis Spherocytes Target Cells Morphology Comment ABG pH ABG pCO2 ABG pO2 ABG HCO3 ABG Total CO2 ABG O2 Saturation ABG Base Excess FiO2 Sodium Potassium Chloride Carbon Dioxide Anion Gap BUN Creatinine GFR Calculation BUN/Creatinine Ratio Glucose Calculated Osmolality Calcium Magnesium Total Bilirubin AST ALT Alkaline Phosphatase Ammonia Troponin I B-Natriuretic Peptide Total Protein Albumin Globulin Albumin/Globulin Ratio Free T4 Digoxin 1.80 Cold Agglutinin Screen - EKG EKG results: interpreted by me EKG shows: sinus rhythm (with bigeminy) I, Tom Callejas MD, personally performed the services described in this documentation, ascribed by Cintia Zuñiga RN in my presence, and it is both accurate and complete .
[2016-07-25] MEDS: CARVEDILOL 3.125 MG TABLET PO SCH ×2 (11:43→18:46)
[2016-07-25] MEDS: PIPERACILLIN/TAZOBACTAM 3,375 MG in SODIUM CHLORIDE 0.9% 100 ML IV SCH ×2 (11:43→14:32)
[2016-07-25] MEDS: DEXTROSE 5% NACL 0.9% 1,000 ML IV SCH (11:44)
[2016-07-25] MEDS: ENOXAPARIN 30 MG/0.3 ML SYRINGE SUBCUT SCH (14:32)
[2016-07-25] MEDS: DESITIN 4OZ/NYSTATIN 15 GRAM MIXTURE PASTE TOP SCH (21:19)
[2016-07-26] MEDS: DEXTROSE 5% NACL 0.9% 1,000 ML IV SCH ×2 (00:19→14:00)
[2016-07-26] MEDS: methylPREDNISolone SOD SUC 40 MG/1 ML VIAL IV SCH ×3 (00:19→17:21)
[2016-07-26] MEDS: PIPERACILLIN/TAZOBACTAM 3,375 MG in SODIUM CHLORIDE 0.9% 100 ML IV SCH ×4 (00:22→23:23)
[2016-07-26] MEDS: ALBUTEROL/IPRATROPIUM 3 ML NEB RESP TX SCH ×6 (03:31→22:55)
[2016-07-26] MEDS: ACETAMINOPHEN 325 MG TABLET PO PRN ×2 (05:11→08:16)
[2016-07-26] MEDS: hydrALAZINE 10 MG TABLET PO SCH ×3 (05:41→21:25)
[2016-07-26 05:44] LABS: Calcium 7.2 MG/DL (8.5-10.1); Magnesium 2.4 MG/DL (1.8-2.4); Osmolality,Calculated 309.4 MOS/KG (273-304); Potassium 3.9 MMOL/L (3.5-5.1)
[2016-07-26 08:15] LABS: ABG Base Excess 4.3 MMOL/L (-2.5-2.5); ABG HCO3 32.2 MMOL/L (20-26); ABG Oxygen Saturation 89.3 % (95-100); ABG PCO2 68.6 MM HG (35-48); ABG PO2 65.8 MM HG (80-95); ABG TCO2 34.4 MMOL/L (23-27)
[2016-07-26] MEDS: FUROSEMIDE 40 MG/4 ML VIAL IV SCH ×2 (08:16→15:31)
[2016-07-26] MEDS: CARVEDILOL 3.125 MG TABLET PO SCH ×2 (08:16→17:21)
[2016-07-26] MEDS: SACUBITRIL/VALSARTAN 49-51 MG TABLET PO SCH (08:19)
[2016-07-26] MEDS: DESITIN 4OZ/NYSTATIN 15 GRAM MIXTURE PASTE TOP SCH ×2 (08:20→21:26)
[2016-07-26] MEDS: PANTOPRAZOLE 40 MG TABLET PO SCH (08:20)
[2016-07-26] MEDS: SPIRONOLACTONE 25 MG TABLET PO SCH (08:20)
[2016-07-26] MEDS: ISOSORBIDE MONONITRATE 30 MG TABLET PO SCH (08:20)
[2016-07-26] MEDS: ASPIRIN EC 325 MG TABLET PO SCH (08:23)
--- NOTE | 2016-07-26 08:43 | XRay Report ---
XR chest 1V portable Indication: Shortness of breath Comparison: 25 July 2016 Findings: The heart and mediastinum are stable in size and configuration with cardiomegaly. Pacemaker device is unchanged in position. The pulmonary vascularity is increased with bilateral increased interstitial lung density. No other lung infiltrates, effusions, pneumothorax or other abnormality is demonstrated. Impression: Findings suggest cardiac decompensation similar to previous. PROCEDURE INTERPRETED AT [facility] DEPARTMENT OF RADIOLOGY Final Report Signed by: Dr. Raphael Babin
--- NOTE | 2016-07-26 09:04 | Cardiology Progress Note ---
Zara Tipton April RN, am scribing for, and in the presence of, Tom Callejas MD 09:03. Assessment and Plan (1) Acute respiratory acidosis Status: Acute Assessment and plan: This may have been secondary to narcotics, or it could've been related to using supplemental oxygen. Pulmonary medicine is assisting with management. Current Visit: Yes (2) Congestive heart failure Status: Acute Assessment and plan: EF 15% by ECHO 06/14/16 with advanced diastolic dysfunction and severe tricuspid regurgitation. 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 Actually, her heart failure appears to be relatively well compensated right now. Current Visit: Yes (3) Nonischemic cardiomyopathy Status: Chronic Current Visit: Yes (4) Tobacco abuse Status: Chronic Current Visit: Yes (5) ICD (implantable cardioverter-defibrillator) in place Status: Chronic Current Visit: No (6) Acute renal failure (ARF) Status: Acute Assessment and plan: Creatinine is down to 1.8 today. Current Visit: Yes Cardiology - PN: Subj Interval history: Resting in bed in no acute distress, oxygen in use via NBP. She is drowsy, but will awaken to voice. Denies any chest pain and reports her breathing is better. O2 sat is 92%. She required no pressors during the night, current pressure is 117/63. She is in sinus rhythm with heart rates in the 60's, but she continues to have some occasional runs of bigeminy. Potassium is 3.9, magnesium is 2.4. Renal function is better today with a creatinine down to 1.8. Current Medications Acetaminophen (Tylenol Tab) 325 mg PO Q4H PRN PRN Reason: fever, headache/body aches Last Admin: 07/26/16 05:11 Dose: 325 mg Albuterol/Ipratropium (Duoneb) 3 ml RESP TX RT Q6H PRN PRN Reason: Shortness of Breath/Wheezing Albuterol/Ipratropium (Duoneb) 3 ml RESP TX RT Q4H [facility] Last Admin: 07/26/16 07:07 Dose: 3 ml Aspirin () 325 mg PO DAILY [facility] Last Admin: 07/25/16 08:43 Dose: 325 mg Carvedilol (Coreg) 3.125 mg PO BID W/MEALS [facility] Last Admin: 07/25/16 18:46 Dose: Not Given Clorazepate Dipotassium (Tranxene) 3.75 mg PO BID PRN PRN Reason: Anxiety Docusate Sodium (Colace Cap) 100 mg PO BID PRN PRN Reason: Constipation Enoxaparin Sodium (Lovenox) 30 mg SUBCUT Q24H [facility] Last Admin: 07/25/16 14:32 Dose: 30 mg Furosemide (Lasix Inj) 80 mg IV BID DIURETIC [facility] Last Admin: 07/25/16 17:00 Dose: 80 mg Hydralazine HCl (Apresoline Tab) 10 mg PO Q8HR [facility] Last Admin: 07/26/16 05:41 Dose: Not Given Piperacillin Sod/Tazobactam (Sod 3,375 mg/ Sodium Chloride) 100 mls @ 25 mls/ hr IV Q8H [facility] Last Infusion: 07/26/16 04:34 Dose: Infused Dextrose/Sodium Chloride (D5 Ns) 1,000 mls @ 75 mls/hr IV .[id number] [facility] Last Admin: 07/26/16 00:19 Dose: 75 mls/hr Dobutamine HCl/Dextrose () 500 mg in 250 mls @ 3.771 mls/hr IV TITRATE MONSE; 2 MCG/KG/MIN PRN Reason: Protocol Last Titration: 07/25/16 12:00 Dose: 0 mcg/kg/min, 0 mls/hr Isosorbide Mononitrate (Imdur) 15 mg PO DAILY [facility] Last Admin: 07/25/16 08:44 Dose: 15 mg Methylprednisolone Sodium Succinate (Solumedrol) 40 mg IV Q6H [facility] Last Admin: 07/26/16 06:22 Dose: 40 mg Nystatin/Zinc Oxide (Skin Protectant Mixture) 1 applic TOP BID [facility] Last Admin: 07/25/16 21:19 Dose: 1 applic Ondansetron HCl (Zofran Inj) 4 mg IV Q4H PRN PRN Reason: Nausea Pantoprazole Sodium (Protonix Tab) 40 mg PO DAILY [facility] Last Admin: 07/25/16 08:44 Dose: 40 mg Spironolactone (Aldactone) 25 mg PO DAILY [facility] Last Admin: 07/25/16 08:44 Dose: 25 mg Exam (Progress Note) - Constitutional Vitals: Period Temp Pulse Resp BP Sys/Philippe Pulse Ox Last 24 Hr 97.6 F-98.6 F 59-768 14-25 78-129/25-92 79-98 General appearance: no acute distress - Head Head exam: Absent: abrasion, hematoma - Respiratory Respiratory exam: Present: rales, other (oxygen via NBP). Absent: accessory muscle use, chest wall tenderness - Cardiovascular Cardiovascular exam: Present: other (sinus with occasional runs of bigeminy) - GI/Abdominal GI/Abdominal exam: Present: normal bowel sounds, soft. Absent: distended, tenderness - Extremities Exam Extremities exam: Absent: calf tenderness, edema - Neurological Exam Neurological exam: Present: alert, oriented X3 - Psychiatric Psychiatric exam: Present: normal mood - Skin Skin exam: Present: warm, dry Result/EKG - Labs CBC & BMP: 07/25/16 05:03 07/26/16 04:32 Lab Results: I have reviewed the past 24 hour labs Labs: Laboratory Results - last 24 hr 07/25/16 07/25/16 07/26/16 10:23 11:26 04:32 ABG pH 7.280 L ABG pCO2 66.9 H ABG pO2 58.6 L ABG HCO3 26.9 H ABG Total CO2 29.2 H ABG O2 Saturation 84.9 L ABG Base Excess 3.1 H FiO2 32.00 Sodium 147 H Potassium 3.9 Chloride 107 Carbon Dioxide 31 Anion Gap 12.9 BUN 57 H Creatinine 1.80 H GFR Calculation 34 BUN/Creatinine Ratio 31.00 H Glucose 143 H Calculated Osmolality 309.4 H Calcium 7.2 L Magnesium 2.4 B-Natriuretic Peptide TSH 3rd Generation 1.240 07/26/16 04:32 ABG pH ABG pCO2 ABG pO2 ABG HCO3 ABG Total CO2 ABG O2 Saturation ABG Base Excess FiO2 Sodium Potassium Chloride Carbon Dioxide Anion Gap BUN Creatinine GFR Calculation BUN/Creatinine Ratio Glucose Calculated Osmolality Calcium Magnesium B-Natriuretic Peptide 2043 H TSH 3rd Generation - EKG EKG results: interpreted by me EKG shows: sinus rhythm (with occasional runs of bigeminy) IJúnior Michael, MD, personally performed the services described in this documentation, ascribed by Cintia Zuñiga RN in my presence, and it is both accurate and complete 904 .
[2016-07-26] MEDS: DOBUTamine 500 MG/250 ML PREMIX IV SCH (09:37)
--- NOTE | 2016-07-26 11:10 | Pulmonology Progress Note ---
Exam (Progress Note) - Constitutional Vitals: Period Temp Pulse Resp BP Sys/Philippe Pulse Ox Last 24 Hr 97.6 F-99.1 F 59-768 14-25 82-126/49-92 88-100 Results - Labs CBC & BMP: 07/25/16 05:03 07/26/16 04:32
[2016-07-26 11:38] LABS: ABG HCO3 27.7 MMOL/L (20-26); ABG PCO2 60.4 MM HG (35-48); ABG PH 7.323 (7.35-7.45); ABG PO2 50.8 MM HG (80-95); ABG TCO2 29.1 MMOL/L (23-27)
--- NOTE | 2016-07-26 12:13 | Hospitalist Progress Note ---
Assessment and Plan (1) Congestive heart failure, NYHA class 4 Status: Chronic Assessment and plan: 1)acute CHF on chronic systolic CHF with resp failure from resp acidosis due to CO2 retention after O2 was too high (she does not have narcotics at home per family)--MS back to baseline. Sats good on 2L NC now. continue steroids, nebs, antibiotics. doing ok off BIPAP. 2)severe cardiomyopathy- diuresing a bit, LE edema still present. continue meds. some ectopy on tele, non sustained. 3)YVONNE- creatinine comoing down- recheck in am. 4)smoking 5)AICD 6)elevated transaminases, ammonia- improved- due to passive hepatic congestion most likely 7)dispo- to tele. Current Visit: Yes Qualifiers: Congestive heart failure type: unspecified congestive heart failure type Qualified Code(s): I50.9 - Heart failure, unspecified (2) Tobacco abuse Status: Chronic Current Visit: Yes (3) ICD (implantable cardioverter-defibrillator) in place Status: Chronic Current Visit: No (4) Nonischemic cardiomyopathy Status: Chronic Current Visit: Yes (5) Acute exacerbation of chronic obstructive airways disease Status: Acute Current Visit: Yes (6) Acute respiratory acidosis Status: Acute Current Visit: Yes (7) Digoxin toxicity Status: Resolved Current Visit: Yes (8) CO2 narcosis Status: Acute Current Visit: Yes Hospitalist: Subjective Interval history: Mrs Corona was looking comfortable this mronig. She slept on 3L NC and rseted well. She did not have hypotension off Dobutamine. She continues to have improved UOP, and her creatinine has come down. She is awake and alert, answers questions, and denies pain or shortness of breath or hunger. Exam - Constitutional Vitals: Period Temp Pulse Resp BP Sys/Philippe Pulse Ox Last 24 Hr 97.6 F-99.1 F 59-88 14-25 82-126/49-92 88-100 General appearance: normal weight, no acute distress - Eye Eye exam: Present: EOMI. Absent: scleral icterus - Respiratory Respiratory exam: Present: rales (bses bilaterally) - Cardiovascular Cardiovascular exam: Present: regular rate and rhythm - GI/Abdominal GI/Abdominal exam: Present: normal bowel sounds, soft. Absent: tenderness - Extremities Exam Extremities exam: Present: edema (2+) Results - Labs CBC & BMP: 02/07/17 05:03 07/26/16 04:32 Lab Results: I have reviewed the past 24 hour labs
[2016-07-26] MEDS: ENOXAPARIN 30 MG/0.3 ML SYRINGE SUBCUT SCH (14:34)
--- NOTE | 2016-07-26 17:56 | Pulmonology Progress Note ---
Pulmonary - PN: Subj Interval history: This is a 55-year-old black female whom I saw in pulmonary consultation on the night of 07/24/2016. I thought that her main problems were. 1. Severe nonischemic cardiomyopathy with a very low ejection fraction. 2. COPD with respiratory failure for oxygen and carbon dioxide. This patient to be appears to be a CO2 retainer may do better with a lower FiO2. 3. Tobacco abuser who continues to smoke 4. Dig toxicity 5. Acute renal failure. Consider the possibility dehydration could be involved. Consider the possibility of BARBRA inhibitors. 7. See past history 8. Mild liver failure with elevated ammonia level.. 07/25/2016. Today's chest x-ray is about the same. Patient has core bovine. There are increased right perihilar and right lower lung markings which I think are probably congestive heart failure. She was started on dobutamine last night and also given Lasix and has begun to diurese. Her creatinine is 2.30. This is higher than it has recently been when she has been in the hospital. Electrolytes are normal. Natruretic peptide is fallen from 4202 2 2947. Dig level is dropped from 2.5-1.8. ABGs this morning on FiO2 of 30% and BiPAP show a pH of 7.25. PCO2 is 68.8. PO2 is 66. Bicarb is 25.4 later on the on FiO2 30 2. and no BiPAP. PH was 7.28. PCO2 was 66.9. PO2 is 58.6. Bicarb was 26.9. I think the patient can bypass the BiPAP for the present time. I think will gradually be able to decrease her FiO2. She will seek the same level of oxygenation but breathe faster lower FiO2. Patient's more alert this morning. I have days discussed the case with Dr. Ayala and we are coordinating care. 07/26/2016. This morning on 2 L/min oxygen the patient's blood gases showed a pH 7.29. PCO2 was 68.6. PO2 was 65.8. Bicarb is 32.2. I tried her on 1 L/min oxygen for an hour and follow-up blood gases showed a pH of 7.323. PCO2 dropped to 60.4. PO2 was 50.8. Bicarb is 27.7. It looks like her best on her oxygen is going to be between 1 and 2 L. She will breathe to a certain level to maintain PO2's at 60 5. Creatinine is dropped to 1.8 with a BUN of 57. Electrolytes are normal. Natruretic peptide is dropped to 2042. Overall the patient is a little stronger and a little better. Her chest x-ray is about the same with increased interstitial markings seen in the right perihilar area in the right base. Her heart so big I cannot see the left lung clear Physical exam. Vital signs. See below Psychiatric. Much more alert. At times the patient is cooperative. Face is symmetrical. Patient has an element of exophthalmos Neck. Symmetrical. No mass Lymphatics. No submandibular cervical supraclavicular adenopathy. No epitrochlear adenopathy. Chest. Mild large airway congestion. No wheezes. Heart. Far lateral PMI Abdomen. Rare bowel sounds. Extremities. Nothing to suggest deep venous thrombophlebitis. Doppler venograms dated 07/24/2016 are negative for deep venous thrombophlebitis. Neurologic. Cranial nerves appear to be intact. Patient moves all fours. The remainder of the physical exam is negative. Plan. 1. Decrease FiO2 to 2 L/min. 2. Patient's on Lasix and dobutamine. 3. Cardiology consultation. 4. Consider renal consultation. Acute renal failure 5. Sputum for Gram stain culture Cold agglutinins. Legionella titer. 6. Daily chest x-ray and ABGs. 7. Agree with antibiotics and steroids on the chance that we are dealing with pneumonia. 6. Daily chest x-ray and ABGs. Daily lab. TSH 7. See orders. 8. 07/26/2016. Daily chest x-rays and ABGs. Keep FiO2 between 1 and 2 L per Exam (Progress Note) - Constitutional Vitals: Period Temp Pulse Resp BP Sys/Philippe Pulse Ox Last 24 Hr 97.6 F-99.1 F 60-77 17-26 82-146/48-76 82-100 Results - Labs CBC & BMP: 07/25/16 05:03 07/26/16 04:32
[2016-07-26] MEDS: CLORAZEPATE 3.75 MG TABLET PO PRN (21:25)
[2016-07-27] MEDS: ALBUTEROL/IPRATROPIUM 3 ML NEB RESP TX SCH ×5 (03:10→19:53)
[2016-07-27 03:17] LABS: ABG Base Excess 2.4 MMOL/L (-2.5-2.5); ABG HCO3 26.2 MMOL/L (20-26); ABG Oxygen Saturation 77.4 % (95-100); ABG PCO2 54.8 MM HG (35-48); ABG PH 7.334 (7.35-7.45); ABG PO2 47.5 MM HG (80-95); Allen Test Positive
[2016-07-27 05:46] LABS: Calcium 7.4 MG/DL (8.5-10.1); Magnesium 2.4 MG/DL (1.8-2.4); Osmolality,Calculated 310.4 MOS/KG (273-304); Potassium 3.6 MMOL/L (3.5-5.1)
[2016-07-27] MEDS: methylPREDNISolone SOD SUC 40 MG/1 ML VIAL IV SCH ×2 (06:40→17:00)
[2016-07-27] MEDS: PIPERACILLIN/TAZOBACTAM 3,375 MG in SODIUM CHLORIDE 0.9% 100 ML IV SCH (06:41)
[2016-07-27] MEDS: hydrALAZINE 10 MG TABLET PO SCH ×3 (06:45→21:25)
--- NOTE | 2016-07-27 07:45 | XRay Report ---
XR chest 1V portable Indication: SOB Comparison: Chest x-ray dated July 26, 2016 Technique: Single frontal view of the chest Findings: Continued marked cardiomegaly. Cardiac pacemaker apparatus again noted. Continued bilateral lower lung atelectasis/consolidation with probable small pleural fluid. Osseous and surrounding soft tissue structures appear grossly unchanged. IMPRESSION: No significant interval change. PROCEDURE INTERPRETED AT [facility] DEPARTMENT OF RADIOLOGY Final Report Signed by: Dr Mickey Wallace
[2016-07-27] MEDS: FUROSEMIDE 40 MG/4 ML VIAL IV SCH ×2 (08:51→16:24)
[2016-07-27] MEDS: SACUBITRIL/VALSARTAN 49-51 MG TABLET PO SCH (08:52)
[2016-07-27] MEDS: ISOSORBIDE MONONITRATE 30 MG TABLET PO SCH (08:52)
[2016-07-27] MEDS: ASPIRIN EC 325 MG TABLET PO SCH (08:52)
[2016-07-27] MEDS: PANTOPRAZOLE 40 MG TABLET PO SCH (08:53)
[2016-07-27] MEDS: SPIRONOLACTONE 25 MG TABLET PO SCH (08:53)
[2016-07-27] MEDS: CARVEDILOL 3.125 MG TABLET PO SCH (08:53)
[2016-07-27] MEDS: DESITIN 4OZ/NYSTATIN 15 GRAM MIXTURE PASTE TOP SCH ×2 (08:59→21:26)
--- NOTE | 2016-07-27 10:28 | Hospitalist Progress Note ---
Assessment and Plan (1) Congestive heart failure, NYHA class 4 Status: Chronic Assessment and plan: acute CHF on chronic systolic CHF- BNP rising, creatinine not falling. her LE edema is better and lung exam is about the same, but abdomen increased in girth. On meds per cards for CHF. Stop Shah. stop Zosyn- cultures negative 2)severe cardiomyopathy 3)YVONNE- no improvement today- consult renal 4)smoking 5)AICD 6)elevated transaminases, ammonia- improved. now with ascites- US and paracentesis 7)dispo- PT to see, SW arranging swing bed. Current Visit: Yes Qualifiers: Congestive heart failure type: unspecified congestive heart failure type Qualified Code(s): I50.9 - Heart failure, unspecified (2) Tobacco abuse Status: Chronic Current Visit: Yes (3) ICD (implantable cardioverter-defibrillator) in place Status: Chronic Current Visit: No (4) Nonischemic cardiomyopathy Status: Chronic Current Visit: Yes (5) Acute exacerbation of chronic obstructive airways disease Status: Acute Current Visit: Yes (6) Acute respiratory acidosis Status: Acute Current Visit: Yes (7) Digoxin toxicity Status: Resolved Current Visit: Yes (8) CO2 narcosis Status: Acute Current Visit: Yes Hospitalist: Subjective Interval history: Mrs Corona says she feels ok today. She looks orthopnic. Denies pain. Her UOP is steady. IVF were not continued on transfer from ICU. BNP higher today, Creatinine came down yesterday, but today is up a bit again- she has not had sustained renal recovery. Will consult nephrology. PT to see- she wants to go to swing bed. Repeat dig level. Abdomen with increased girth and exam consisitent with ascites- check US and consider paracentesis for relief of shortness of breath. Exam - Constitutional Vitals: Period Temp Pulse Resp BP Sys/Philippe Pulse Ox Last 24 Hr 96.2 F-99.0 F 49-78 16-78 101-172/48-85 82-97 General appearance: normal weight, no acute distress - Head Head exam: Present: normocephalic, atraumatic - Eye Eye exam: Present: EOMI. Absent: scleral icterus - Respiratory Respiratory exam: Present: rales - Cardiovascular Cardiovascular exam: Present: regular rate and rhythm - GI/Abdominal GI/Abdominal exam: Present: normal bowel sounds, soft. Absent: tenderness ( ascites) - Extremities Exam Extremities exam: Present: edema (LE edema improved. ) - Neurological Exam Neurological exam: Present: alert, oriented X3 - Skin Skin exam: Present: warm, dry Results - Labs CBC & BMP: 07/25/16 05:03 07/27/16 03:49 Lab Results: I have reviewed the past 24 hour labs
[2016-07-27] MEDS: DEXTROSE 5% NACL 0.9% 1,000 ML IV SCH (10:45)
--- NOTE | 2016-07-27 10:58 | Pulmonology Progress Note ---
Pulmonary - PN: Subj Interval history: This is a 55-year-old black female whom I saw in pulmonary consultation on the night of 07/24/2016. I thought that her main problems were. 1. Severe nonischemic cardiomyopathy with a very low ejection fraction. 2. COPD with respiratory failure for oxygen and carbon dioxide. This patient to be appears to be a CO2 retainer may do better with a lower FiO2. 3. Tobacco abuser who continues to smoke 4. Dig toxicity 5. Acute renal failure. Consider the possibility dehydration could be involved. Consider the possibility of BARBRA inhibitors. 7. See past history 8. Mild liver failure with elevated ammonia level.. 07/25/2016. Today's chest x-ray is about the same. Patient has core bovine. There are increased right perihilar and right lower lung markings which I think are probably congestive heart failure. She was started on dobutamine last night and also given Lasix and has begun to diurese. Her creatinine is 2.30. This is higher than it has recently been when she has been in the hospital. Electrolytes are normal. Natruretic peptide is fallen from 4202 2 2947. Dig level is dropped from 2.5-1.8. ABGs this morning on FiO2 of 30% and BiPAP show a pH of 7.25. PCO2 is 68.8. PO2 is 66. Bicarb is 25.4 later on the on FiO2 30 2. and no BiPAP. PH was 7.28. PCO2 was 66.9. PO2 is 58.6. Bicarb was 26.9. I think the patient can bypass the BiPAP for the present time. I think will gradually be able to decrease her FiO2. She will seek the same level of oxygenation but breathe faster lower FiO2. Patient's more alert this morning. I have days discussed the case with Dr. Ayala and we are coordinating care. 07/26/2016. This morning on 2 L/min oxygen the patient's blood gases showed a pH 7.29. PCO2 was 68.6. PO2 was 65.8. Bicarb is 32.2. I tried her on 1 L/min oxygen for an hour and follow-up blood gases showed a pH of 7.323. PCO2 dropped to 60.4. PO2 was 50.8. Bicarb is 27.7. It looks like her best on her oxygen is going to be between 1 and 2 L. She will breathe to a certain level to maintain PO2's at 60 5. Creatinine is dropped to 1.8 with a BUN of 57. Electrolytes are normal. Natruretic peptide is dropped to 2042. Overall the patient is a little stronger and a little better. Her chest x-ray is about the same with increased interstitial markings seen in the right perihilar area in the right base. Her heart so big I cannot see the left lung clear 07/27/2016. Patient was seen along with her daughter. She has had an uneventful day. Her chest x-ray is unchanged from previous descriptions. ABGs on FiO2 24 % show a pH 7.33. PCO2 has dropped 54.8. PO2 is 47.5. Bicarb is 26.2. Electrolytes are normal. Creatinine is 2.0 with a BUN of 59. Natruretic peptide is greater than 5000. I made no alterations in this patient's therapy today. She does better with a low FiO2. Underlying heart disease is to keep problem superimposed on severe COPD. We will continue to follow chest x-rays and ABGs. Physical exam. Vital signs. See below Psychiatric. Much more alert. At times the patient is cooperative. Face is symmetrical. Patient has an element of exophthalmos Neck. Symmetrical. No mass Lymphatics. No submandibular cervical supraclavicular adenopathy. No epitrochlear adenopathy. Chest. Mild large airway congestion. No wheezes. Heart. Far lateral PMI Abdomen. Rare bowel sounds. Extremities. Nothing to suggest deep venous thrombophlebitis. Doppler venograms dated 07/24/2016 are negative for deep venous thrombophlebitis. Neurologic. Cranial nerves appear to be intact. Patient moves all fours. The remainder of the physical exam is negative. Plan. 1. Decrease FiO2 to 2 L/min. 2. Patient's on Lasix and dobutamine. 3. Cardiology consultation. 4. Consider renal consultation. Acute renal failure 5. Sputum for Gram stain culture Cold agglutinins. Legionella titer. 6. Daily chest x-ray and ABGs. 7. Agree with antibiotics and steroids on the chance that we are dealing with pneumonia. 6. Daily chest x-ray and ABGs. Daily lab. TSH 7. See orders. 8. 07/26/2016. Daily chest x-rays and ABGs. Keep FiO2 between 1 and 2 L per Exam (Progress Note) - Constitutional Vitals: Period Temp Pulse Resp BP Sys/Philippe Pulse Ox Last 24 Hr 96.2 F-99.0 F 49-78 16-78 101-172/48-85 82-97 Results - Labs CBC & BMP: 07/25/16 05:03 07/27/16 03:49
[2016-07-27] MEDS: CLORAZEPATE 3.75 MG TABLET PO PRN (11:13)
--- NOTE | 2016-07-27 12:06 | Cardiology Progress Note ---
<Deedee Holm E - Last Filed: 07/27/16 11:41> Assessment and Plan - Time spent with patient Time spent with patient: Greater than 30 minutes (1) COPD (chronic obstructive pulmonary disease) Status: Chronic Assessment and plan: See plan of care listed below Current Visit: Yes Qualifiers: COPD type: COPD with acute exacerbation Qualified Code(s): J44.1 - Chronic obstructive pulmonary disease with (acute) exacerbation (2) Tobacco abuse Status: Chronic Assessment and plan: See plan of care listed below Current Visit: Yes (3) ICD (implantable cardioverter-defibrillator) in place Status: Chronic Current Visit: No (4) Congestive heart failure, NYHA class 4 Status: Acute Assessment and plan: See plan of care listed below Current Visit: Yes Qualifiers: Congestive heart failure type: combined Congestive heart failure chronicity : acute on chronic Qualified Code(s): I50.43 - Acute on chronic combined systolic (congestive) and diastolic (congestive) heart failure (5) Nonischemic cardiomyopathy Status: Chronic Assessment and plan: See plan of care listed below Current Visit: Yes (6) Renal failure Status: Chronic Current Visit: No (7) Acute respiratory failure Status: Acute Assessment and plan: See plan of care listed below Current Visit: No (8) Digoxin toxicity Status: Resolved Assessment and plan: See plan of care listed below Current Visit: Yes Cardiology - PN: Subj Interval history: Ms. Corona is a 55 year old female who is followed by Dr. Valadez with a history of nonischemic cardiomyopathy, EF 15%, CHF, renal failure, COPD, paroxysmal atrial fibrillation, and syncopal episodes. She had ICD placed at [place] in 2012. Echocardiogram 06/14/2016 revealed EF of 15%, advanced diastolic dysfunction. Patient was transferred in to [facility] from [facility] July 24, 2016 for shortness of breath. She was found to be very lethargic and responded to Narcan. She is placed in our intensive care unit for close observation. She was found to have congestive heart failure, COPD with respiratory failure, dig toxicity, renal failure, liver failure. One point she required dopamine and Lasix and began to diurese. She was moved to a telemetry unit and slow to progress. Chest x-ray this morning reveals no significant improvement. Her telemetry has been reviewed and she is having frequent bigeminal PACs. She denies having chest pain. She acknowledges that she still orthopneic. Her pro BNP is greater than 5000 this morning, creatinine up from 1.8-2.0. CBC is pending. There is no daily weight recorded this morning. I'll ask for strict daily weights and strict intake and output. Her vital signs are recorded with a pulse rate noted to be 38 and 40 however I suspect this is related to the bigeminal PACs she's having. Her potassium is 3.8 on given additional oral dose of potassium. Her magnesium is 2.4. She is taking low-dose Coreg and I suspect that her blood pressure will now allow us to introduce a higher dose. Hopefully this will quiesce the frequency of her PACs. She has recently been started on Entresto. ASSESSMENT/PLAN: 1. ACUTE RESPIRATORY ACIDOSIS - this may have been secondary to narcotics, it could have been secondary to using supplemental oxygen. Appreciate pulmonary medicine assisting with management. 2. CHF, ACUTE ON CHRONIC - history of nonischemic cardiomyopathy. Severely reduced LVEF at 15%, [place] [employer] classification IV. Continue with diuresing. She is taking 80 mg IV Lasix twice a day, spironolactone. Request daily weights. She may require dobutamine again. She is on a good heart failure medication regimen. 3. NICM - EF 15% - continue current plan of care 4. S/P ICD - continue current plan of care 5. TOBACCOISM - greater than 5 minutes was spent discussing the merits of tobacco cessation 6. ARF - creatinine 2.0. Continue with current plan of care 7. MILD LIVER FAILURE WITH ASCITES - continue with current plan of care 8. COPD WITH RESPIRATORY FAILURE - continue current plan of care. Slow to improve 9. DIGOXIN TOXICITY - resolved 10. HYPERTENSION - Increase Coreg 11. BIGEMINAL PACS - Give additional dose of potassium orally, increase betablockade. In fact, and the patient is taking Entresto, we may consider stopping Hydralazine and Imdur combination in favor of increasing her beta blockade. However first, we will will start with increasing the beta dayanna today. Exam (Progress Note) - Constitutional Vitals: Period Temp Pulse Resp BP Sys/Philippe Pulse Ox Last 24 Hr 96.2 F-99.0 F 38-78 16-78 101-172/48-85 82-97 General appearance: mild distress, over weight - Head Head exam: Present: normocephalic, atraumatic - Eye Eye exam: Present: EOMI. Absent: nystagmus Pupils: Present: TEJINDER. Absent: dilated - ENT ENT exam: Present: normal external ear exam, normal oropharynx - Neck Neck exam: Present: other (unable to assess for JVD due to habitus). Absent: lymphadenopathy, tenderness, thyromegaly - Respiratory Respiratory exam: Present: prolonged expiratory phase, rales (posteriorly in the bases) - Cardiovascular Cardiovascular exam: Present: other (slow rate and rhythm). Absent: systolic murmur - GI/Abdominal GI/Abdominal exam: Present: ascites. Absent: tenderness - Extremities Exam Extremities exam: Present: edema. Absent: full ROM (1+ bilateral oximetry edema ) - Back Exam Back exam: Absent: CVA tenderness (L), CVA tenderness (R), muscle spasm - Neurological Exam Neurological exam: Present: alert, abnormal gait. Absent: oriented X3 - Psychiatric Psychiatric exam: Present: flat affect. Absent: anxious - Skin Skin exam: Present: dry. Absent: diaphoretic, rash Result/EKG - Labs CBC & BMP: 07/25/16 05:03 07/27/16 03:49 Lab Results: I have reviewed the past 24 hour labs Labs: Laboratory Results - last 24 hr 07/27/16 07/27/16 07/27/16 03:06 03:49 03:49 ABG pH 7.334 L ABG pCO2 54.8 H ABG pO2 47.5 L ABG HCO3 26.2 H ABG Total CO2 27.0 ABG O2 Saturation 77.4 L ABG Base Excess 2.4 FiO2 24.00 Sodium 147 H Potassium 3.6 Chloride 107 Carbon Dioxide 28 Anion Gap 15.6 H BUN 59 H Creatinine 2.00 H GFR Calculation 30 BUN/Creatinine Ratio 29.00 H Glucose 131 H Calculated Osmolality 310.4 H Calcium 7.4 L Magnesium 2.4 B-Natriuretic Peptide > 5000 H Digoxin 07/27/16 Unknown ABG pH ABG pCO2 ABG pO2 ABG HCO3 ABG Total CO2 ABG O2 Saturation ABG Base Excess FiO2 Sodium Potassium Chloride Carbon Dioxide Anion Gap BUN Creatinine GFR Calculation BUN/Creatinine Ratio Glucose Calculated Osmolality Calcium Magnesium B-Natriuretic Peptide Digoxin 1.20 - Diagnostic Findings Procedure: Chest x-ray: report reviewed by me - EKG EKG results: interpreted by me EKG shows: sinus rhythm (with frequent PACs) <Tom Callejas - Last Filed: 07/27/16 13:58> Assessment and Plan (1) Acute respiratory acidosis Status: Acute Current Visit: Yes (2) Congestive heart failure Status: Acute Current Visit: Yes (3) Nonischemic cardiomyopathy Status: Chronic Current Visit: Yes (4) Tobacco abuse Status: Chronic Current Visit: Yes (5) ICD (implantable cardioverter-defibrillator) in place Status: Chronic Current Visit: No (6) Acute renal failure (ARF) Status: Acute Current Visit: Yes Cardiology - PN: Subj Interval history: I have seen, interviewed, examined the patient and reviewed his chart and discussed the case with the mid-level provider and agree with the plan as outlined in the note. Exam (Progress Note) - Constitutional Vitals: Period Temp Pulse Resp BP Sys/Philippe Pulse Ox Last 24 Hr 96.2 F-99.0 F 38-78 16-78 101-172/48-85 85-97 Result/EKG - Labs CBC & BMP: 07/27/16 12:17 07/27/16 03:49 Labs: Laboratory Results - last 24 hr 07/27/16 07/27/16 07/27/16 03:06 03:49 03:49 WBC RBC Hgb Hct MCV MCH MCHC RDW Plt Count MPV Neut % (Auto) Lymph % (Auto) [place] % (Auto) Eos % (Auto) Baso % (Auto) Neut # (Auto) Lymph # (Auto) [place] # (Auto) Eos # (Auto) Baso # (Auto) Immature Gran % Nucleated RBC % Immature Gran # Nucleated RBCs # ABG pH 7.334 L ABG pCO2 54.8 H ABG pO2 47.5 L ABG HCO3 26.2 H ABG Total CO2 27.0 ABG O2 Saturation 77.4 L ABG Base Excess 2.4 FiO2 24.00 Sodium 147 H Potassium 3.6 Chloride 107 Carbon Dioxide 28 Anion Gap 15.6 H BUN 59 H Creatinine 2.00 H GFR Calculation 30 BUN/Creatinine Ratio 29.00 H Glucose 131 H Calculated Osmolality 310.4 H Calcium 7.4 L Magnesium 2.4 B-Natriuretic Peptide > 5000 H Digoxin 07/27/16 07/27/16 12:17 Unknown WBC 6.7 D RBC 3.94 Hgb 9.0 L Hct 32.3 L MCV 82.0 L MCH 23 L MCHC 27.9 L RDW 21.7 H Plt Count 159 D MPV 10.2 Neut % (Auto) 84.7 H Lymph % (Auto) 10.4 L [place] % (Auto) 3.9 Eos % (Auto) 0.0 Baso % (Auto) 0.0 Neut # (Auto) 5.7 Lymph # (Auto) 0.7 L [place] # (Auto) 0.3 Eos # (Auto) 0.0 Baso # (Auto) 0.0 Immature Gran % 1.0 Nucleated RBC % 3.1 Immature Gran # 0.07 Nucleated RBCs # 0.21 ABG pH ABG pCO2 ABG pO2 ABG HCO3 ABG Total CO2 ABG O2 Saturation ABG Base Excess FiO2 Sodium Potassium Chloride Carbon Dioxide Anion Gap BUN Creatinine GFR Calculation BUN/Creatinine Ratio Glucose Calculated Osmolality Calcium Magnesium B-Natriuretic Peptide Digoxin 1.20
[2016-07-27] MEDS ORDERED: POTASSIUM CHLORIDE 20 MEQ TABLET PO ONE (12:10)
[2016-07-27 12:49] LABS: Immature Granulocytes Absolute 0.07 #; Lymphocytes # 0.7 10*3/uL (1.4-4.0); Lymphocytes % 10.4 % (21.3-54.2); Mean Corpuscular HGB Conc 27.9 GM/DL (32-36); Mean Corpuscular Hemoglobin 23 PG (27-34); Mean Platelet Volume 10.2 FL (9.6-12.0); Monocytes # 0.3 10*3/uL (0.11-0.8); Monocytes % 3.9 % (1.7-12.7); NRBC # 0.21 10*3/uL; Neutrophils # 5.7 10*3/uL (1.4-7.4); Neutrophils % 84.7 % (38.7-73.9); Platelet Count 159 T/CUMM (130-400); Red Blood Count 3.94 MC/CUMM (3.8-5.5); Red Cell Distribution Width 21.7 % (9.3-17.3); White Blood Count 6.7 T/CUMM (4-12)
[2016-07-27 12:51] LABS: Hematocrit 32.3 VOL% (35.7-47.0)
[2016-07-27] MEDS: ENOXAPARIN 30 MG/0.3 ML SYRINGE SUBCUT SCH (13:17)
[2016-07-27] MEDS: CARVEDILOL 6.25 MG TABLET PO SCH ×2 (13:19→21:25)
[2016-07-27] MEDS ORDERED: metOLazone 2.5 MG TABLET PO SCH (14:00)
[2016-07-27] MEDS ORDERED: TISSUE ADHESIVE 1 EACH APPLICATOR TOP ONE (15:20)
--- NOTE | 2016-07-27 15:25 | Post Interventional Procedure ---
Pre-op diagnosis: Ascites Post-op diagnosis: same Procedure: US guided paracentesis Radiologist: Jossue Hollins Anesthesia: local Specimens: other (1100 cc mian colorad fluid to lab) Estimated blood loss: none Complications: none Condition: stable
--- NOTE | 2016-07-27 16:09 | Ultrasound Report ---
US paracentesis abd w/image Indication: Ascites. Shortness of breath. Ultrasound-guided paracentesis Description: Sonographic evaluation shows a very small amount of ascites adjacent to the liver. A formal timeout was performed. Maximum sterile barrier technique was used. The right upper quadrant was prepped and draped in sterile fashion. Under sonographic guidance, a 6 [place] pigtail catheter was advanced into the ascites using trocar technique. A captured sonographic image documents needle position. The needle was removed. Through the catheter, we obtained a total of 1200 cc of straw-colored ascites. No additional fluid could be obtained. Therefore, the catheter was removed. A bandage was placed at the puncture site. The patient tolerated the procedure well. Impression: Ultrasound-guided paracentesis. PROCEDURE INTERPRETED AT [facility] DEPARTMENT OF RADIOLOGY Final Report Signed by: Jossue Hollins M.D.
[2016-07-27 16:41] LABS: Total Protein,Body Fluid 2.8 G/DL
--- NOTE | 2016-07-27 19:21 | Ultrasound Report ---
Exam: US renal Bilateral Date: 07/27/2016 2:46 PM Comparison: None Indication: Renal failure Technique:[Multiple transabdominal real-time scans were obtained of the kidneys. Color flow scans obtained. Ultrasound images were captured and stored.] Findings: Right kidney measures 103 x 48 x 44 mm. Left kidney measures 105 x 48 x 54 mm. No masses or hydronephrosis. Impression: The kidneys are symmetric in size with no mass or hydronephrosis. Inhomogeneous echogenicity which can be seen with medical renal disease. PROCEDURE INTERPRETED AT [facility] DEPARTMENT OF RADIOLOGY Final Report Signed by: Dr. Tarsha Parmar
--- NOTE | 2016-07-27 20:12 | Nephrology Consult Note ---
History of Present Illness Chief complaint: chronic kidney disease History of present illness: Of note, most of the history is from chart review. The patient is not very conversant. Ms. Corona is a 55 year old female with history of CHF, liver disease associated with acites who has had weakness. She has had multiple hospitalizations for CHF. The patient's serum creatinine was noted to be elevated. Nephrology has been consulted for renal issues. Renal ultrasound shows evidence of medical scott isal disease. Home Medications Medication Instructions Recorded Confirmed Type Aspirin EC Tab 325 mg PO DAILY 04/06/16 07/24/16 History Carvedilol 3.125 mg PO BID W/MEALS 04/06/16 07/24/16 History Spironolactone [Aldactone] 25 mg PO DAILY 04/06/16 07/24/16 History hydrALAZINE TAB [Apresoline Tab] 10 mg PO Q8HR 04/06/16 07/24/16 History Furosemide Tab [Lasix Tab] 80 mg PO BID 06/14/16 07/24/16 History Isosorbide Mononitrate [Imdur] 15 mg PO DAILY 06/14/16 07/24/16 History Digoxin Tab [Lanoxin Tab] 0.125 mg PO DAILY 07/24/16 07/24/16 History Sacubitril/Valsartan [Entresto 49 1 each PO DAILY 07/24/16 07/24/16 History mg-51 mg Tablet] Allergies Allergy/AdvReac Type Severity Reaction Status Date / Time azithromycin [From Zithromax] AdvReac Severe Gastrointestinal Verified 06/14/16 08:35 Upset nalbuphine [From Nubain] AdvReac Intermediate Cramping Verified 06/14/16 08:35 of the Muscles Medical,Surgical,& Family Hx - Medical History Cardio: History of: Cardiac Dysrhythmia (paroxysmal afib), CHF (nonischemic cardiomyopathy, chronic), Hypertension, Pacemaker (icd, dual-chamber) No history of: Aneurysm Psychological: History of: Depression Rheumatology: History of;: Gout Respiratory: History of: COPD (she has pulmonary hypertension and severe tricuspid regurgitation), Pulmonary Hypertension Renal: History of: Renal Failure No history of: Dialysis, Renal Problems Musculoskeletal: No history of: Amputation Hematology: History of: Anemia (NOT CURRENT) - Surgical History Cardiac Surgeries: Sugical HX of: Cardiac Catheterization (no stent-films not available-done years ago at [place]), Internal Defibrillator (dual chamber ICD at [place] ) Thoracic Surgeries: Patient denies;: Organ Transplant Abdominal Surgeries: Patient denies: Abdominal Surgery Reproductive Surgeries: Patient denies;: Genitourinary Surgery, Gynecologic Surgery - Family History Family History: Reports;: Family Cancer, Family Diabetes, Family Heart Disease, Family Hypertension, Family Stroke Denies;: Family Hematology, Family Psychiatric Problems, Additional Family History - Social History Smoking Status: Current some day smoker Frequency of Alcohol Use: None Type of Drug Use: None Exam - Vital Signs Vital signs: Period Temp Pulse Resp BP Sys/Philippe Pulse Ox Last 24 Hr 96.2 F-98.4 F 38-77 16-30 102-172/49-78 85-99 - General Appearance General appearance: chronically ill, fatigue, frail EENT: ATNC Neck: supple Respiratory: clear Cardiology: no edema, regular rate, regular rhythm Gastrointestinal: normoactive bowel sounds Neurologic: no asterixis, obtunded Musculoskeletal: no clubbing Results - Labs CBC & BMP: 07/27/16 12:17 07/27/16 03:49 Assessment and Plan (1) Chronic kidney disease Status: Chronic Assessment and plan: Appears to have underlying chronic kidney disease as evidence by renal ultrasound. Strict I/Os. Avoid nephrotoxic agents Current Visit: Yes Qualifiers: Chronic kidney disease stage: stage 2 (mild) Qualified Code(s): N18.2 - Chronic kidney disease, stage 2 (mild) (2) Acute renal failure (ARF) Status: Acute Assessment and plan: Acute on chronic renal failure. Current Visit: Yes
[2016-07-28] MEDS: ALBUTEROL/IPRATROPIUM 3 ML NEB RESP TX SCH ×6 (00:19→21:27)
[2016-07-28 03:46] LABS: Hematocrit 31.7 VOL% (35.7-47.0); Hemoglobin 9.1 GM/DL (12.0-16.0); Immature Granulocytes % 2.2 %; Lymphocytes # 0.5 10*3/uL (1.4-4.0); Lymphocytes % 10.4 % (21.3-54.2); Mean Corpuscular HGB Conc 28.7 GM/DL (32-36); Mean Corpuscular Hemoglobin 23 PG (27-34); Mean Corpuscular Volume 79.8 FL (87-102); Mean Platelet Volume 9.8 FL (9.6-12.0); Monocytes # 0.2 10*3/uL (0.11-0.8); Monocytes % 3.7 % (1.7-12.7); NRBC # 0.29 10*3/uL; Neutrophils # 3.9 10*3/uL (1.4-7.4); Neutrophils % 83.7 % (38.7-73.9); Platelet Count 135 T/CUMM (130-400); Red Blood Count 3.97 MC/CUMM (3.8-5.5); Red Cell Distribution Width 21.6 % (9.3-17.3); White Blood Count 4.6 T/CUMM (4-12)
[2016-07-28 04:03] LABS: Calcium 7.8 MG/DL (8.5-10.1); Osmolality,Calculated 313.3 MOS/KG (273-304)
[2016-07-28 04:06] LABS: Calcium 8.1 MG/DL (8.5-10.1); Magnesium 2.4 MG/DL (1.8-2.4); Osmolality,Calculated 310.4 MOS/KG (273-304); Potassium 4.1 MMOL/L (3.5-5.1)
[2016-07-28 04:13] LABS: ABG Base Excess 3.2 MMOL/L (-2.5-2.5); ABG Oxygen Saturation 90.5 % (95-100); ABG PCO2 58.1 MM HG (35-48); ABG PH 7.331 (7.35-7.45); ABG PO2 69.5 MM HG (80-95); ABG TCO2 31.8 MMOL/L (23-27); Allen Test Positive
[2016-07-28 05:02] LABS: Lymphocytes 12 % (20-55); Myelocytes 1 %; Nucleated Red Blood Cells 7 (0-5); Segmented Neutrophils 83 % (50-85)
[2016-07-28 05:30] LABS: Elliptocytes Few; Platelet Estimate Adequate; Target Cells Few
[2016-07-28 05:31] LABS: Hypochromasia Slight
[2016-07-28 05:32] LABS: Total Cells Counted 100
[2016-07-28] MEDS: methylPREDNISolone SOD SUC 40 MG/1 ML VIAL IV SCH ×2 (06:43→18:48)
[2016-07-28] MEDS: hydrALAZINE 10 MG TABLET PO SCH ×3 (06:43→22:06)
--- NOTE | 2016-07-28 08:14 | XRay Report ---
XR chest 1V portable Indication: SOB Comparison: Chest x-ray dated July 27, 2016 Technique: Single frontal view of the chest Findings: Continued marked cardiomegaly. Cardiac pacemaker apparatus again noted. Progression of diffuse hazy opacification throughout the bilateral lungs suggestive of worsened pulmonary edema. Osseous and surrounding soft tissue structures appear grossly unchanged. IMPRESSION: Progression of pulmonary edema/CHF. PROCEDURE INTERPRETED AT [facility] DEPARTMENT OF RADIOLOGY Final Report Signed by: Dr Mickey Wallace
[2016-07-28] MEDS: ISOSORBIDE MONONITRATE 30 MG TABLET PO SCH (10:32)
[2016-07-28] MEDS: SPIRONOLACTONE 25 MG TABLET PO SCH (10:32)
[2016-07-28] MEDS: ASPIRIN EC 325 MG TABLET PO SCH (10:33)
[2016-07-28] MEDS: FUROSEMIDE 40 MG/4 ML VIAL IV SCH ×2 (10:33→16:41)
[2016-07-28] MEDS: PANTOPRAZOLE 40 MG TABLET PO SCH (10:33)
[2016-07-28] MEDS: SACUBITRIL/VALSARTAN 49-51 MG TABLET PO SCH (10:33)
[2016-07-28] MEDS: CARVEDILOL 6.25 MG TABLET PO SCH ×2 (10:33→22:06)
[2016-07-28] MEDS: DESITIN 4OZ/NYSTATIN 15 GRAM MIXTURE PASTE TOP SCH ×2 (10:34→22:07)
--- NOTE | 2016-07-28 11:19 | Pulmonology Progress Note ---
Pulmonary - PN: Subj Interval history: This is a 55-year-old black female whom I saw in pulmonary consultation on the night of 07/24/2016. I thought that her main problems were. 1. Severe nonischemic cardiomyopathy with a very low ejection fraction. 2. COPD with respiratory failure for oxygen and carbon dioxide. This patient to be appears to be a CO2 retainer may do better with a lower FiO2. 3. Tobacco abuser who continues to smoke 4. Dig toxicity 5. Acute renal failure. Consider the possibility dehydration could be involved. Consider the possibility of BARBRA inhibitors. 7. See past history 8. Mild liver failure with elevated ammonia level.. 07/25/2016. Today's chest x-ray is about the same. Patient has core bovine. There are increased right perihilar and right lower lung markings which I think are probably congestive heart failure. She was started on dobutamine last night and also given Lasix and has begun to diurese. Her creatinine is 2.30. This is higher than it has recently been when she has been in the hospital. Electrolytes are normal. Natruretic peptide is fallen from 4202 2 2947. Dig level is dropped from 2.5-1.8. ABGs this morning on FiO2 of 30% and BiPAP show a pH of 7.25. PCO2 is 68.8. PO2 is 66. Bicarb is 25.4 later on the on FiO2 30 2. and no BiPAP. PH was 7.28. PCO2 was 66.9. PO2 is 58.6. Bicarb was 26.9. I think the patient can bypass the BiPAP for the present time. I think will gradually be able to decrease her FiO2. She will seek the same level of oxygenation but breathe faster lower FiO2. Patient's more alert this morning. I have days discussed the case with Dr. Ayala and we are coordinating care. 07/26/2016. This morning on 2 L/min oxygen the patient's blood gases showed a pH 7.29. PCO2 was 68.6. PO2 was 65.8. Bicarb is 32.2. I tried her on 1 L/min oxygen for an hour and follow-up blood gases showed a pH of 7.323. PCO2 dropped to 60.4. PO2 was 50.8. Bicarb is 27.7. It looks like her best on her oxygen is going to be between 1 and 2 L. She will breathe to a certain level to maintain PO2's at 60 5. Creatinine is dropped to 1.8 with a BUN of 57. Electrolytes are normal. Natruretic peptide is dropped to 2042. Overall the patient is a little stronger and a little better. Her chest x-ray is about the same with increased interstitial markings seen in the right perihilar area in the right base. Her heart so big I cannot see the left lung clear 07/27/2016. Patient was seen along with her daughter. She has had an uneventful day. Her chest x-ray is unchanged from previous descriptions. ABGs on FiO2 24 % show a pH 7.33. PCO2 has dropped 54.8. PO2 is 47.5. Bicarb is 26.2. Electrolytes are normal. Creatinine is 2.0 with a BUN of 59. Natruretic peptide is greater than 5000. I made no alterations in this patient's therapy today. She does better with a low FiO2. Underlying heart disease is to keep problem Superimposed on severe COPD. We will continue to follow chest x-rays and ABGs. 07/28/2016. This patient has core bovine and congestive heart failure. She has a markedly decreased cardiac output. She has underlying COPD and she has continued to smoke up until the time of this admission. I discussed this with her daughter today. She said this is the other daughter brings her cigarettes. This patient had respiratory failure for carbon dioxide with PCO2's in the 80s. She also has respiratory failure. She has done best on the low FiO2. Today on FiO2 of 24% her pH is 7.33. PCO2 is 58.1. PO2 is 69.5 and bicarb is 30. Her chest x-ray continues to show congestive heart failure. She has stable anemia. Creatinine is 2.10. BUN is 63. Natruretic peptide is greater than 5000. Will physical exam she is comfortable laying on her side. Physical exam. Vital signs. See below Psychiatric. Much more alert. At times the patient is cooperative. Face is symmetrical. Patient has an element of exophthalmos Neck. Symmetrical. No mass Lymphatics. No submandibular cervical supraclavicular adenopathy. No epitrochlear adenopathy. Chest. Mild large airway congestion. No wheezes. Heart. Far lateral PMI Abdomen. Rare bowel sounds. Extremities. Nothing to suggest deep venous thrombophlebitis. Doppler venograms dated 07/24/2016 are negative for deep venous thrombophlebitis. Neurologic. Cranial nerves appear to be intact. Patient moves all fours. The remainder of the physical exam is negative. Plan. 1. Decrease FiO2 to 2 L/min. 2. Patient's on Lasix. Previously she was on dobutamine .6. Daily chest x-ray and ABGs. 7. Agree with antibiotics and steroids on the chance that we are dealing with pneumonia. 8. Continue low FiO2's. Continue treating congestive heart failure. Have asked daughter to keep her cigarettes away from her at home. Exam (Progress Note) - Constitutional Vitals: Period Temp Pulse Resp BP Sys/Philippe Pulse Ox Last 24 Hr 96.2 F-98.7 F 38-74 16-30 102-132/49-78 88-99 Results - Labs CBC & BMP: 07/28/16 01:58 07/28/16 01:58
--- NOTE | 2016-07-28 12:16 | Cardiology Progress Note ---
I, Louisa Murcia, RN, am scribing for, and in the presence of, Tom Callejas MD 12:16. Assessment and Plan (1) Congestive heart failure, NYHA class 4 Status: Acute Assessment and plan: BNP today is greater than 5000. This is acute on chronic. Patient has history of nonischemic cardiomyopathy. Severely reduced LVEF at 15%, [place] [employer] classification IV. Continue with diuresing. She is taking 80 mg IV Lasix twice a day and spironolactone. I discussed her case with Dr. Ayala. We are going to try restarting the dobutamine. Current Visit: Yes Qualifiers: Congestive heart failure type: combined Congestive heart failure chronicity : acute on chronic Qualified Code(s): I50.43 - Acute on chronic combined systolic (congestive) and diastolic (congestive) heart failure (2) COPD (chronic obstructive pulmonary disease) Status: Chronic Assessment and plan: continue current plan of care. Slow to improve. Current Visit: Yes Qualifiers: COPD type: COPD with acute exacerbation Qualified Code(s): J44.1 - Chronic obstructive pulmonary disease with (acute) exacerbation (3) Nonischemic cardiomyopathy Status: Chronic Assessment and plan: EF 15% - continue current plan of care Current Visit: Yes (4) Tobacco abuse Status: Chronic Assessment and plan: Encourage smoking cessation. Current Visit: Yes (5) Digoxin toxicity Status: Resolved Assessment and plan: This is resolved. Current Visit: Yes (6) Acute respiratory failure Status: Acute Assessment and plan: Acute respiratory acidosis. This may have been secondary to narcotics, it could have been secondary to using supplemental oxygen. Management per pulmonology. Current Visit: No (7) ICD (implantable cardioverter-defibrillator) in place Status: Chronic Assessment and plan: Continue current plan of care. Current Visit: No (8) Renal failure Status: Chronic Assessment and plan: Creatinine is 2.1 today. Continue with current plan of care. Current Visit: No (9) Hypertension Status: Acute Assessment and plan: This is well controlled today after increasing Coreg yesterday. Current Visit: Yes Cardiology - PN: Subj Interval history: Ms. Corona is a 55 year old female who is followed by Dr. Valadez with a history of nonischemic cardiomyopathy, EF 15%, CHF, renal failure, COPD, paroxysmal atrial fibrillation, and syncopal episodes. She had ICD placed at [place] in 2012. Echocardiogram 06/14/2016 revealed EF of 15%, advanced diastolic dysfunction. Clinically she seems a little better today. She is currently on 2 L O2 via nasal. Patient reports that her breathing has improved today. She denies palpitations and chest pain. She is taking 80 mg IV Lasix twice a day and spironolactone. We will continue diuresing her today and monitor her creatinine closely. Today her creatinine is 2.1. Nephrology is following. She underwent ultrasound guided paracentesis yesterday per Dr. Hollins. She is doing well following this procedure. Ascites has improved. She is sinus rhythm per air sampling and monitoring without any ectopy including bigeminal PACs. Bigeminal PACs responded well to increase in beta-dayanna and replacement of potassium yesterday. Potassium today is 4.1. BNP today is greater than 5000. Vital signs stable. Active Medications Acetaminophen (Tylenol Tab) 325 mg PO Q4H PRN PRN Reason: fever, headache/body aches Last Admin: 07/26/16 08:16 Dose: 325 mg Hydrocodone Bitart/Acetaminophen (Cerritos 5-325) 1 tablet PO Q6H PRN PRN Reason: Pain Moderate (4-7) Last Admin: 07/28/16 02:58 Dose: 1 tablet Albuterol/Ipratropium (Duoneb) 3 ml RESP TX RT Q6H PRN PRN Reason: Shortness of Breath/Wheezing Albuterol/Ipratropium (Duoneb) 3 ml RESP TX RT Q4H [facility] Last Admin: 07/28/16 07:39 Dose: 3 ml Aspirin () 325 mg PO DAILY [facility] Last Admin: 07/28/16 10:33 Dose: 325 mg Carvedilol (Coreg) 6.25 mg PO BID [facility] Last Admin: 07/28/16 10:33 Dose: 6.25 mg Clorazepate Dipotassium (Tranxene) 3.75 mg PO BID PRN PRN Reason: Anxiety Last Admin: 07/27/16 11:13 Dose: 3.75 mg Docusate Sodium (Colace Cap) 100 mg PO BID PRN PRN Reason: Constipation Enoxaparin Sodium (Lovenox) 30 mg SUBCUT Q24H [facility] Last Admin: 07/27/16 13:17 Dose: Not Given Furosemide (Lasix Inj) 80 mg IV BID DIURETIC [facility] Last Admin: 07/28/16 10:33 Dose: 80 mg Hydralazine HCl (Apresoline Tab) 10 mg PO Q8HR [facility] Last Admin: 07/28/16 06:43 Dose: 10 mg Isosorbide Mononitrate (Imdur) 15 mg PO DAILY [facility] Last Admin: 07/28/16 10:32 Dose: 15 mg Methylprednisolone Sodium Succinate (Solumedrol) 40 mg IV Q12H [facility] Last Admin: 07/28/16 06:43 Dose: 40 mg Nystatin/Zinc Oxide (Skin Protectant Mixture) 1 applic TOP BID [facility] Last Admin: 07/28/16 10:34 Dose: 1 applic Ondansetron HCl (Zofran Inj) 4 mg IV Q4H PRN PRN Reason: Nausea Pantoprazole Sodium (Protonix Tab) 40 mg PO DAILY [facility] Last Admin: 07/28/16 10:33 Dose: 40 mg Spironolactone (Aldactone) 25 mg PO DAILY [facility] Last Admin: 07/28/16 10:32 Dose: 25 mg Exam (Progress Note) - Constitutional Vitals: Period Temp Pulse Resp BP Sys/Philippe Pulse Ox Last 24 Hr 96.2 F-98.7 F 38-74 16-30 102-132/49-78 88-99 General appearance: no acute distress, over weight - Head Head exam: Present: normal inspection, normocephalic, atraumatic - Neck Neck exam: Present: normal inspection. Absent: tenderness, thyromegaly - Respiratory Respiratory exam: Present: prolonged expiratory phase, rales, wheezes. Absent: accessory muscle use, chest wall tenderness, rhonchi, stridor - Cardiovascular Cardiovascular exam: Present: JVD, regular rate and rhythm. Absent: bradycardia , gallop, rubs, systolic murmur, tachycardia - GI/Abdominal GI/Abdominal exam: Present: soft. Absent: firm, mass, tenderness - Extremities Exam Extremities exam: Present: normal capillary refill, edema. Absent: calf tenderness - Neurological Exam Neurological exam: Present: alert, oriented X3 - Psychiatric Psychiatric exam: Present: normal mood. Absent: agitated, anxious - Skin Skin exam: Present: normal color, warm, dry. Absent: rash Result/EKG - Labs CBC & BMP: 07/28/16 01:58 07/28/16 01:58 Lab Results: I have reviewed the past 24 hour labs Labs: Laboratory Results - last 24 hr 07/24/16 07/27/16 07/27/16 Unknown 12:17 16:21 WBC 6.7 D RBC 3.94 Hgb 9.0 L Hct 32.3 L MCV 82.0 L MCH 23 L MCHC 27.9 L RDW 21.7 H Plt Count 159 D MPV 10.2 Neut % (Auto) 84.7 H Lymph % (Auto) 10.4 L [place] % (Auto) 3.9 Eos % (Auto) 0.0 Baso % (Auto) 0.0 Neut # (Auto) 5.7 Lymph # (Auto) 0.7 L [place] # (Auto) 0.3 Eos # (Auto) 0.0 Baso # (Auto) 0.0 Total Counted Immature Gran % 1.0 Nucleated RBC % 3.1 Immature Gran # 0.07 Segmented Neutrophils Lymphocytes Monocytes Myelocytes Nucleated RBCs Nucleated RBCs # 0.21 Platelet Estimate Hypochromasia Target Cells Elliptocytes ABG pH ABG pCO2 ABG pO2 ABG HCO3 ABG Total CO2 ABG O2 Saturation ABG Base Excess FiO2 Sodium Potassium Chloride Carbon Dioxide Anion Gap BUN Creatinine GFR Calculation BUN/Creatinine Ratio Glucose Calculated Osmolality Calcium Magnesium B-Natriuretic Peptide Fluid Total Protein 2.8 Fluid Albumin 1.3 Fluid LDH 109 Digoxin Legionella pneumophila Ab Negative 07/27/16 07/28/16 07/28/16 Unknown 01:58 01:58 WBC RBC Hgb Hct MCV MCH MCHC RDW Plt Count MPV Neut % (Auto) Lymph % (Auto) [place] % (Auto) Eos % (Auto) Baso % (Auto) Neut # (Auto) Lymph # (Auto) [place] # (Auto) Eos # (Auto) Baso # (Auto) Total Counted Immature Gran % Nucleated RBC % Immature Gran # Segmented Neutrophils Lymphocytes Monocytes Myelocytes Nucleated RBCs Nucleated RBCs # Platelet Estimate Hypochromasia Target Cells Elliptocytes ABG pH ABG pCO2 ABG pO2 ABG HCO3 ABG Total CO2 ABG O2 Saturation ABG Base Excess FiO2 Sodium 148 H 147 H Potassium 4.0 4.1 Chloride 108 H 108 H Carbon Dioxide 30 25 Anion Gap 14.0 18.1 H BUN 64 H 63 H Creatinine 2.10 H 2.10 H GFR Calculation 28 28 BUN/Creatinine Ratio 30.00 H 30.00 H Glucose 126 H 125 H Calculated Osmolality 313.3 H 310.4 H Calcium 7.8 L 8.1 L Magnesium 2.4 B-Natriuretic Peptide Fluid Total Protein Fluid Albumin Fluid LDH Digoxin 1.20 Legionella pneumophila Ab 07/28/16 07/28/16 07/28/16 01:58 01:58 04:05 WBC 4.6 D RBC 3.97 Hgb 9.1 L Hct 31.7 L MCV 79.8 L MCH 23 L MCHC 28.7 L RDW 21.6 H Plt Count 135 MPV 9.8 Neut % (Auto) 83.7 H Lymph % (Auto) 10.4 L [place] % (Auto) 3.7 Eos % (Auto) 0.0 Baso % (Auto) 0.0 Neut # (Auto) 3.9 Lymph # (Auto) 0.5 L [place] # (Auto) 0.2 Eos # (Auto) 0.0 Baso # (Auto) 0.0 Total Counted 100 Immature Gran % 2.2 Nucleated RBC % 6.3 Immature Gran # 0.10 Segmented Neutrophils 83 Lymphocytes 12 L Monocytes 4 Myelocytes 1 Nucleated RBCs 7 H Nucleated RBCs # 0.29 Platelet Estimate Adequate Hypochromasia Slight Target Cells Few Elliptocytes Few ABG pH 7.331 L ABG pCO2 58.1 H ABG pO2 69.5 L ABG HCO3 30.0 H ABG Total CO2 31.8 H ABG O2 Saturation 90.5 L ABG Base Excess 3.2 H FiO2 24.00 Sodium Potassium Chloride Carbon Dioxide Anion Gap BUN Creatinine GFR Calculation BUN/Creatinine Ratio Glucose Calculated Osmolality Calcium Magnesium B-Natriuretic Peptide > 5000 H Fluid Total Protein Fluid Albumin Fluid LDH Digoxin Legionella pneumophila Ab - EKG EKG results: interpreted by me, sinus rhythm I, Tom Callejas MD, personally performed the services described in this documentation, ascribed by Louisa Murcia RN in my presence, and it is both accurate and complete .
[2016-07-28] MEDS: DOBUTamine 500 MG/250 ML PREMIX IV SCH (12:48)
--- NOTE | 2016-07-28 13:18 | Hospitalist Progress Note ---
Assessment and Plan (1) Congestive heart failure, NYHA class 4 Status: Acute Assessment and plan: 1)acute CHF on chronic systolic CHF- BNP rising, creatinine not falling. her LE edema is better and lung exam is about the same. Her ascites is better after tap of about 1500 cc yesterday. On meds per cards for CHF. Discussed restarting Dobutamine with them- now that her dig is in normal range and she has had increase in betablocker, her ectopy has improved and hopefully she will tolerate it better. TO start fixed dose dobutamine today. 2)severe cardiomyopathy- has been to [facility] and [facility]- not listed because still smokes. 3)YVONNE on CKD- creatinine stable. medical renal disease on US. may have improvement on dobutamine. 4)smoking 5)AICD 6)elevated transaminases, ammonia- improved. now with ascites- paracentesis as needed. 7)dispo- PT to see, SW arranging swing bed. Has a place when ready for discharge. has been indenpendent in ADLs prior to this, but much weaker now. Current Visit: Yes Qualifiers: Congestive heart failure type: combined Congestive heart failure chronicity : acute on chronic Qualified Code(s): I50.43 - Acute on chronic combined systolic (congestive) and diastolic (congestive) heart failure (2) Tobacco abuse Status: Chronic Current Visit: Yes (3) ICD (implantable cardioverter-defibrillator) in place Status: Chronic Current Visit: No (4) Nonischemic cardiomyopathy Status: Chronic Current Visit: Yes (5) Acute exacerbation of chronic obstructive airways disease Status: Acute Current Visit: Yes (6) Acute respiratory acidosis Status: Acute Current Visit: Yes (7) Digoxin toxicity Status: Resolved Current Visit: Yes (8) CO2 narcosis Status: Acute Current Visit: Yes Hospitalist: Subjective Interval history: Mrs Corona feels a bit better today, though she appears short of breath at rest. She can take a deeper breath after paracentesis yesterday. Her daughters are with her. She is not very communicative and I encouraged them to talk about what she wants us to do for her. I told them she seemed frustrated and like she had given up to me, and acknowledged that because she is so quiet about what she is thinking and feeling I could be completely wrong. Exam - Constitutional Vitals: Period Temp Pulse Resp BP Sys/Philippe Pulse Ox Last 24 Hr 95 F-98.7 F 48-72 16-30 102-132/44-78 88-99 General appearance: normal weight, mild distress - Eye Eye exam: Present: EOMI. Absent: scleral icterus Pupils: Present: TEJINDER (checked because nurse reported pupils were not responsive. both constrict with light, right more than left.) - Respiratory Respiratory exam: Present: rales, wheezes - Cardiovascular Cardiovascular exam: Present: regular rate and rhythm - GI/Abdominal GI/Abdominal exam: Present: normal bowel sounds, soft. Absent: tenderness - Extremities Exam Extremities exam: Present: edema Results - Labs CBC & BMP: 07/28/16 01:58 07/28/16 01:58
[2016-07-28] MEDS: ENOXAPARIN 30 MG/0.3 ML SYRINGE SUBCUT SCH (14:01)
--- NOTE | 2016-07-28 15:35 | Nephrology Progress Note ---
Nephrology - PN: Subj Interval history: The patient is lying in bed a little more awake today. Renal ultrasound showed evidence of chronic kidney disease. Serum creatinine is 2.1. Weight is noted. Continuing to follow accordingly. Have started discussion with family about it patient's status continues to decline with they want renal replacement therapy. They are continuing to discuss that. This patient has a lot of chronic medical conditions. Exam (PN)-Nephrology - Vital Signs Vital signs: Period Temp Pulse Resp BP Sys/Philippe Pulse Ox Last 24 Hr 95 F-98.7 F 48-72 16-22 102-129/44-77 88-99 - General Appearance General appearance: fatigue, frail Neck: supple Respiratory: clear Cardiology: no edema, regular rate, regular rhythm Gastrointestinal: normoactive bowel sounds, no tenderness - Lab 07/28/16 01:58 07/28/16 01:58 Most recent lab results ABG pH 7.331 (7.35-7.45) L 07/28/16 04:05 ABG pCO2 58.1 MM HG (35-48) H 07/28/16 04:05 ABG pO2 69.5 MM HG (80-95) L 07/28/16 04:05 ABG HCO3 30.0 MMOL/L (20-26) H 07/28/16 04:05 ABG O2 Saturation 90.5 % (95-100) L 07/28/16 04:05 Calcium 8.1 MG/DL (8.5-10.1) L 07/28/16 01:58 Magnesium 2.4 MG/DL (1.8-2.4) 07/28/16 01:58 Assessment and Plan (1) Chronic kidney disease Status: Chronic Assessment and plan: Appears to have underlying chronic kidney disease as evidence by renal ultrasound. Strict I/Os. Avoid nephrotoxic agents Current Visit: Yes Qualifiers: Chronic kidney disease stage: stage 2 (mild) Qualified Code(s): N18.2 - Chronic kidney disease, stage 2 (mild) (2) Acute renal failure (ARF) Status: Acute Assessment and plan: More likely has chronic renal failure. Current Visit: Yes
[2016-07-28] MEDS: CLORAZEPATE 3.75 MG TABLET PO PRN (16:41)
[2016-07-29] MEDS: ALBUTEROL/IPRATROPIUM 3 ML NEB RESP TX SCH ×7 (00:36→23:53)
[2016-07-29 02:54] LABS: Magnesium 2.4 MG/DL (1.8-2.4); Osmolality,Calculated 310.7 MOS/KG (273-304)
[2016-07-29 04:49] LABS: ABG Base Excess 0.6 MMOL/L (-2.5-2.5); ABG Oxygen Saturation 98.2 % (95-100); ABG PH 7.231 (7.35-7.45); ABG TCO2 27.8 MMOL/L (23-27)
[2016-07-29 04:53] LABS: ABG PCO2 70.8 MM HG (35-48)
[2016-07-29] MEDS: methylPREDNISolone SOD SUC 40 MG/1 ML VIAL IV SCH ×2 (05:17→18:30)
[2016-07-29] MEDS: hydrALAZINE 10 MG TABLET PO SCH ×3 (05:17→22:00)
[2016-07-29] MEDS: FUROSEMIDE 40 MG/4 ML VIAL IV SCH ×3 (08:21→20:30)
--- NOTE | 2016-07-29 09:02 | Pulmonology Progress Note ---
Pulmonary - PN: Subj Interval history: On my rounds this morning patient was not very alert she just been put in all on BiPAP after I left the patient pulmonary they moved her to the unit with the idea that she may need to be intubated and I reviewed patient in the unit subsequently she was clot in tolerating the BiPAP reasonably well arterial blood gases are pending Exam (Progress Note) - Constitutional Vitals: Period Temp Pulse Resp BP Sys/Philippe Pulse Ox Last 24 Hr 95 F-98.1 F 40-70 16-22 120-162/44-94 89-100 Exam: Constitutional: General appearance is normal Eyes: Pupils equal round react to light and accommodation conjunctiva and lids are normal Neck: supple without masses Respiratory: Respiratory effort is normal. Lungs are clear to auscultation. Resonant to percussion. Cardiac: Regular rate and rhythm without murmur rub or gallop. PMI at the midclavicular line by palpation. Carotid arteries 2+ palpation no bruits GI: Bowel sounds normoactive, no tenderness or rebound tenderness, no organomegaly Extremities: no clubbing cyanosis or edema Results - Labs CBC & BMP: 07/28/16 01:58 07/29/16 02:01 Assessment and Plan (1) Congestive heart failure Status: Acute Assessment and plan: Weight is up and her respiratory status is worse with CO2 retention she had a workup for DVT which was unremarkable. He is currently taking steroids sacubitril valsartan combination Lasix twice a day dobutamine infusion and offloading agents I will increase her Lasix to 3 times a day Current Visit: Yes (2) Acute respiratory failure Status: Acute Assessment and plan: Preliminary is following we will defer to them on with or not the patient needs to be intubated currently she looks comfortable CO2 retention gases are pending Current Visit: Yes
[2016-07-29] MEDS: SACUBITRIL/VALSARTAN 49-51 MG TABLET PO SCH (09:16)
[2016-07-29] MEDS: ASPIRIN EC 325 MG TABLET PO SCH (09:16)
[2016-07-29] MEDS: SPIRONOLACTONE 25 MG TABLET PO SCH (09:16)
[2016-07-29] MEDS: ISOSORBIDE MONONITRATE 30 MG TABLET PO SCH (09:16)
[2016-07-29] MEDS: CARVEDILOL 6.25 MG TABLET PO SCH ×2 (09:16→20:37)
[2016-07-29] MEDS: PANTOPRAZOLE 40 MG TABLET PO SCH (09:17)
[2016-07-29] MEDS: DESITIN 4OZ/NYSTATIN 15 GRAM MIXTURE PASTE TOP SCH ×2 (09:20→21:52)
[2016-07-29 09:56] LABS: ABG Base Excess 1.7 MMOL/L (-2.5-2.5); ABG HCO3 25.9 MMOL/L (20-26); ABG Oxygen Saturation 96.9 % (95-100); ABG PH 7.281 (7.35-7.45); ABG PO2 95.6 MM HG (80-95); ABG TCO2 27.6 MMOL/L (23-27); Allen Test Positive; Pt O2 Delivery Device BIPAP
--- NOTE | 2016-07-29 10:38 | Event Note ---
Called this morning by nursing staff that patient was refusing to wear her bipap , was combative and confused. ABG showed a significant respiratory acidosis. I went to eval the patient. She was indeed refusing biapap. Family was at bedside. I explained that is we were not able to get her to wear her biapap, she would likely need to be intubated. We transferred her to the ICU. She did eventually calm down and bipap was placed. Her gas improved and for now we will hold off on intubation. However patient has end stage heart failure and is very tenuous. Would recommend consideration of palliative care measures
--- NOTE | 2016-07-29 10:42 | XRay Report ---
History: Shortness of breath Date: 07/29/2016 Study: Chest x-ray AP portable Comparison exam: Chest x-ray 07/28/2016 There is prominent cardiomegaly as before. The mediastinal contour is stable. The pulmonary vasculature is slightly engorged. There is hazy pulmonary edema bilaterally, though this is mildly improved. There is continued left pleural effusion. A left subclavian multiple lead pacemaker/defibrillator device is unchanged. The osseous structures are similar. Impression: Cardiomegaly and continued CHF. The pulmonary edema is slightly improved PROCEDURE INTERPRETED AT [facility] DEPARTMENT OF RADIOLOGY Final Report Signed by: Dr. Aparna Hernandez
--- NOTE | 2016-07-29 13:14 | Nephrology Progress Note ---
Nephrology - PN: Subj Interval history: The patient's condition changed on yesterday to be moved to an ICU setting. She now is wearing BiPAP. Condition is very poor. Exam (PN)-Nephrology - Vital Signs Vital signs: Period Temp Pulse Resp BP Sys/Philippe Pulse Ox Last 24 Hr 97.3 F-98.1 F 40-72 15-22 120-162/56-94 89-100 - General Appearance General appearance: chronically ill, fatigue, frail EENT: ATNC Neck: supple Respiratory: clear Cardiology: regular rate Gastrointestinal: normoactive bowel sounds - Lab 07/28/16 01:58 07/29/16 02:01 Most recent lab results ABG pH 7.281 (7.35-7.45) L 07/29/16 09:30 ABG pCO2 63.0 MM HG (35-48) H 07/29/16 09:30 ABG pO2 95.6 MM HG (80-95) H 07/29/16 09:30 ABG HCO3 25.9 MMOL/L (20-26) 07/29/16 09:30 ABG O2 Saturation 96.9 % (95-100) 07/29/16 09:30 Calcium 8.0 MG/DL (8.5-10.1) L 07/29/16 02:01 Magnesium 2.4 MG/DL (1.8-2.4) 07/29/16 02:01 Assessment and Plan (1) Chronic kidney disease Status: Chronic Assessment and plan: Strict I/Os. Avoid nephrotoxic agents Current Visit: Yes Qualifiers: Chronic kidney disease stage: stage 2 (mild) Qualified Code(s): N18.2 - Chronic kidney disease, stage 2 (mild) (2) Acute renal failure (ARF) Status: Acute Assessment and plan: More likely has chronic renal failure. Current Visit: Yes
[2016-07-29] MEDS: ENOXAPARIN 30 MG/0.3 ML SYRINGE SUBCUT SCH (14:33)
--- NOTE | 2016-07-29 14:49 | Cardiology Progress Note ---
Assessment and Plan (1) Congestive heart failure, NYHA class 4 Status: Acute Assessment and plan: Patient has history of nonischemic cardiomyopathy. Severely reduced LVEF at 15% , [place] [employer] classification IV. We're attempting diuresis as well as dobutamine infusion to try to optimize her cardiovascular status. Current Visit: Yes Qualifiers: Congestive heart failure type: combined Congestive heart failure chronicity : acute on chronic Qualified Code(s): I50.43 - Acute on chronic combined systolic (congestive) and diastolic (congestive) heart failure (2) COPD (chronic obstructive pulmonary disease) Status: Chronic Current Visit: Yes Qualifiers: COPD type: COPD with acute exacerbation Qualified Code(s): J44.1 - Chronic obstructive pulmonary disease with (acute) exacerbation (3) Nonischemic cardiomyopathy Status: Chronic Assessment and plan: EF 15% Current Visit: Yes (4) Tobacco abuse Status: Chronic Assessment and plan: Encourage smoking cessation. Current Visit: Yes (5) Digoxin toxicity Status: Resolved Assessment and plan: This is resolved. Current Visit: Yes (6) Acute respiratory failure Status: Acute Current Visit: No Qualifiers: Respiratory failure complication: hypoxia and hypercapnia Qualified Code(s) : J96.01 - Acute respiratory failure with hypoxia; J96.02 - Acute respiratory failure with hypercapnia (7) ICD (implantable cardioverter-defibrillator) in place Status: Chronic Current Visit: No (8) Renal failure Status: Chronic Current Visit: No (9) Hypertension Status: Acute Current Visit: Yes Cardiology - PN: Subj Interval history: Overnight, the patient developed increasing hypoventilation and was transferred to the unit. She was apparently refusing her CPAP/BiPAP. She is currently wearing it is more alert. However, her status remained quite tenuous. She is on the verge of respiratory failure and hypercapnia. She has a very severe cardiomyopathy. Current Medications Acetaminophen (Tylenol Tab) 325 mg PO Q4H PRN PRN Reason: fever, headache/body aches Last Admin: 07/26/16 08:16 Dose: 325 mg Hydrocodone Bitart/Acetaminophen ([place] 5-325) 1 tablet PO Q6H PRN PRN Reason: Pain Moderate (4-7) Last Admin: 07/28/16 22:07 Dose: 1 tablet Albuterol/Ipratropium (Duoneb) 3 ml RESP TX RT Q6H PRN PRN Reason: Shortness of Breath/Wheezing Albuterol/Ipratropium (Duoneb) 3 ml RESP TX RT Q4H [facility] Last Admin: 07/29/16 14:25 Dose: 3 ml Aspirin () 325 mg PO DAILY [facility] Last Admin: 07/29/16 09:16 Dose: Not Given Carvedilol (Coreg) 6.25 mg PO BID [facility] Last Admin: 07/29/16 09:16 Dose: Not Given Clorazepate Dipotassium (Tranxene) 3.75 mg PO BID PRN PRN Reason: Anxiety Last Admin: 07/28/16 16:41 Dose: 3.75 mg Docusate Sodium (Colace Cap) 100 mg PO BID PRN PRN Reason: Constipation Enoxaparin Sodium (Lovenox) 30 mg SUBCUT Q24H [facility] Last Admin: 07/29/16 14:33 Dose: 30 mg Furosemide (Lasix Inj) 80 mg IV TID [facility] Last Admin: 07/29/16 14:33 Dose: 80 mg Hydralazine HCl (Apresoline Tab) 10 mg PO Q8HR [facility] Last Admin: 07/29/16 14:32 Dose: Not Given Dobutamine HCl/Dextrose () 500 mg in 250 mls @ 10.104 mls/hr IV .Q24H [facility] PRN Reason: 5 MCG/KG/MIN Last Infusion: 07/29/16 08:40 Dose: 3.46 mcg/kg/min, 7 mls/hr Isosorbide Mononitrate (Imdur) 15 mg PO DAILY [facility] Last Admin: 07/29/16 09:16 Dose: Not Given Methylprednisolone Sodium Succinate (Solumedrol) 40 mg IV Q12H [facility] Last Admin: 07/29/16 05:17 Dose: 40 mg Nystatin/Zinc Oxide (Skin Protectant Mixture) 1 applic TOP BID [facility] Last Admin: 07/29/16 09:20 Dose: Not Given Ondansetron HCl (Zofran Inj) 4 mg IV Q4H PRN PRN Reason: Nausea Pantoprazole Sodium (Protonix Tab) 40 mg PO DAILY [facility] Last Admin: 07/29/16 09:17 Dose: Not Given Spironolactone (Aldactone) 25 mg PO DAILY [facility] Last Admin: 07/29/16 09:16 Dose: Not Given Exam (Progress Note) - Constitutional Vitals: Period Temp Pulse Resp BP Sys/Philippe Pulse Ox Last 24 Hr 97.3 F-98.1 F 40-72 14-28 120-162/56-94 89-100 Exam: General: Frail chronically ill-appearing female wearing a CPAP mask in the ICU with mild respiratory distress HEENT: Normocephalic, atraumatic Cardiac: Regular rhythm. Heart sounds are somewhat obscured by noises of breathing Lungs: Coarse breath sounds with poor inspiratory effort Abdomen: Soft, Active Bowel Sounds, No Masses, No Pulsations/Bruits Skin: Normal color, no rash Extremities: No Clubbing, No Cyanosis, No Edema, Normal Upper Extr. Pulses Musculoskeletal: No acute abnormality noted, diffuse generalized weakness Result/EKG - Labs CBC & BMP: 07/28/16 01:58 07/29/16 02:01 Lab Results: I have reviewed the past 24 hour labs Labs: Laboratory Results - last 24 hr 07/29/16 07/29/16 07/29/16 02:01 02:01 04:34 ABG pH 7.231 L ABG pCO2 70.8 H* ABG pO2 123.0 H ABG HCO3 25.0 ABG Total CO2 27.8 H ABG O2 Saturation 98.2 ABG Base Excess 0.6 FiO2 28.00 Sodium 145 Potassium 4.0 Chloride 105 Carbon Dioxide 27 Anion Gap 17.0 H BUN 68 H Creatinine 2.30 H GFR Calculation 26 BUN/Creatinine Ratio 29.00 H Glucose 159 H Calculated Osmolality 310.7 H Calcium 8.0 L Magnesium 2.4 B-Natriuretic Peptide > 5000 H 07/29/16 09:30 ABG pH 7.281 L ABG pCO2 63.0 H ABG pO2 95.6 H ABG HCO3 25.9 ABG Total CO2 27.6 H ABG O2 Saturation 96.9 ABG Base Excess 1.7 FiO2 30.00 Sodium Potassium Chloride Carbon Dioxide Anion Gap BUN Creatinine GFR Calculation BUN/Creatinine Ratio Glucose Calculated Osmolality Calcium Magnesium B-Natriuretic Peptide - EKG EKG results: interpreted by me
[2016-07-29] MEDS: DOBUTamine 500 MG/250 ML PREMIX IV SCH (16:01)
[2016-07-29 17:08] LABS: Apearance,Urine CLEAR (Clear); Bilirubin,Urine Negative (Negative); Blood, Urine Negative (Negative); Glucose,Urine (UA) Negative (Negative); Hyaline Casts,Urine 4 /LPF (0-3); Ketones,Urine Negative (Negative); Mucus,Urine Occasional /LPF (Occasional); Nitrite,Urine Negative (Negative); Protein,Urine Negative; RBC,Urine <1 /HPF (0-4); Squamous Epithelial Cell,Urine Occasional /HPF (0-10); Urine Color Yellow (Yellow); Urine Specific Gravity 1.009 (1.001-1.035); Urine Urobilinogen < 2.0 EU/DL (0.2-1.0); WBC,Urine 1 /HPF (0-6)
[2016-07-29] MEDS: CLORAZEPATE 3.75 MG TABLET PO PRN (20:37)
[2016-07-30] MEDS: ALBUTEROL/IPRATROPIUM 3 ML NEB RESP TX SCH ×6 (03:48→23:30)
[2016-07-30 03:54] LABS: ABG Base Excess 4.3 MMOL/L (-2.5-2.5); ABG HCO3 27.8 MMOL/L (20-26); ABG Oxygen Saturation 65.4 % (95-100); ABG PCO2 64.6 MM HG (35-48); ABG PH 7.306 (7.35-7.45); ABG PO2 41.2 MM HG (80-95); Allen Test Positive
[2016-07-30 06:30] LABS: Calcium 8.2 MG/DL (8.5-10.1); Magnesium 2.3 MG/DL (1.8-2.4); Osmolality,Calculated 308.7 MOS/KG (273-304); Potassium 4.1 MMOL/L (3.5-5.1)
[2016-07-30 06:36] LABS: Basophils % 0.2 % (0.0-0.8); Eosinophils % 0.2 % (0.00-10.9); Hematocrit 32.1 VOL% (35.7-47.0); Hemoglobin 9.3 GM/DL (12.0-16.0); Immature Granulocytes % 8.7 %; Immature Granulocytes Absolute 0.43 #; Lymphocytes # 0.6 10*3/uL (1.4-4.0); Lymphocytes % 11.4 % (21.3-54.2); Mean Corpuscular Hemoglobin 23 PG (27-34); Mean Corpuscular Volume 79.5 FL (87-102); Mean Platelet Volume 10.1 FL (9.6-12.0); Monocytes # 0.2 10*3/uL (0.11-0.8); Monocytes % 3.9 % (1.7-12.7); NRBC # 0.58 10*3/uL; Neutrophils # 3.7 10*3/uL (1.4-7.4); Neutrophils % 75.6 % (38.7-73.9); Platelet Count 145 T/CUMM (130-400); Red Blood Count 4.04 MC/CUMM (3.8-5.5); Red Cell Distribution Width 21.2 % (9.3-17.3); White Blood Count 4.9 T/CUMM (4-12)
[2016-07-30] MEDS: hydrALAZINE 10 MG TABLET PO SCH ×3 (06:44→22:12)
[2016-07-30] MEDS: methylPREDNISolone SOD SUC 40 MG/1 ML VIAL IV SCH ×2 (06:44→17:59)
[2016-07-30 06:49] LABS: Band Neutrophils 1 % (0-10); Elliptocytes Few; Hypochromasia 1+; Lymphocytes 11 % (20-55); Macrocytosis Slight; Nucleated Red Blood Cells 13 (0-5); Platelet Estimate Normal; Segmented Neutrophils 87 % (50-85); Total Cells Counted 100
[2016-07-30 06:50] LABS: Polychromasia Slight
--- NOTE | 2016-07-30 07:31 | Pulmonology Progress Note ---
Pulmonary - PN: Subj Interval history: Patient continues to refuse her bipap intermittently and be quite combative with the staff. Her ABG looks better this morning and her CXR is unchanged. Overall she is still quite tenuous Exam (Progress Note) - Constitutional Vitals: Period Temp Pulse Resp BP Sys/Philippe Pulse Ox Last 24 Hr 98 F-98.6 F 60-83 14-36 124-152/50-94 87-100 General appearance: no acute distress - ENT ENT exam: Present: normal exam - Neck Neck exam: Present: normal inspection - Respiratory Respiratory exam: Present: clear to auscultation bilaterally Results - Labs CBC & BMP: 07/30/16 05:00 07/30/16 05:00 Lab Results: I have reviewed the past 24 hour labs - Diagnostic Findings Procedure: Chest x-ray: image reviewed by me (cardiomegaly, no effusions or obvious infiltrates) Assessment and Plan (1) Hypercapnia Status: Acute Assessment and plan: Patient with severe cardiomyopathy and chronic hypercapnea. She is extremely tenuous from this standpoint, and I am concerned that she will wind up intubated again. Need to discuss code status with the family again, as her overall prognosis is quite poor given the severity of all of her comorbid conditions Current Visit: Yes
--- NOTE | 2016-07-30 07:41 | Pulmonology Progress Note ---
Pulmonary - PN: Subj Interval history: Patient is much more alert today she will not use the BiPAP but she seems more comfortable she squeezes my hand follows commands Exam (Progress Note) - Constitutional Vitals: Period Temp Pulse Resp BP Sys/Philippe Pulse Ox Last 24 Hr 98 F-98.6 F 60-83 14-36 124-152/50-94 87-100 Exam: Constitutional: General appearance is normal Eyes: Pupils equal round react to light and accommodation conjunctiva and lids are normal Neck: supple without masses Respiratory: Respiratory effort is normal. Lungs are clear to auscultation. Resonant to percussion. Cardiac: Regular rate and rhythm without murmur rub or gallop. PMI at the midclavicular line by palpation. Carotid arteries 2+ palpation no bruits GI: Bowel sounds normoactive, no tenderness or rebound tenderness, no organomegaly Extremities: no clubbing cyanosis or edema Results - Labs CBC & BMP: 07/30/16 05:00 07/30/16 05:00 Assessment and Plan (1) Congestive heart failure Status: Acute Assessment and plan: Weight is up and her respiratory status is worse with CO2 retention she had a workup for DVT which was unremarkable. He is currently taking steroids sacubitril valsartan combination Lasix twice a day dobutamine infusion and offloading agents I will increase her Lasix to 3 times a day 07/30 weight is down continue current medicines for her congestive heart failure , chest x-ray shows an enlarged heart pacemaker no acute infiltrates today Current Visit: Yes (2) Acute respiratory failure Status: Acute Assessment and plan: Preliminary is following we will defer to them on with or not the patient needs to be intubated currently she looks comfortable CO2 retention gases are pending 07/30 x-ray looks clear she has elevated CO2 but her pH is normalizing I would not do anything different I think she's getting better and only thing I might consider would be Aminophyllin and a double strength dose to increase her respiratory drive but right now she's better and I would not make any changes Current Visit: Yes
--- NOTE | 2016-07-30 08:27 | XRay Report ---
History: Shortness of breath Date: 07/30/2016 at 3:37 AM Study: Chest x-ray AP portable Comparison exam: 07/29/2016 There is prominent cardiomegaly as before. The mediastinal contours are unchanged. The pulmonary vasculature is slightly engorged as before. There is continued hazy pulmonary edema bilaterally, grossly similar. There is continued left pleural effusion. A left subclavian multiple lead pacemaker/defibrillator device is unchanged. The osseous structures are unchanged. Impression: No gross overall change. Continued cardiomegaly and CHF PROCEDURE INTERPRETED AT [facility] DEPARTMENT OF RADIOLOGY Final Report Signed by: Dr. Aparna Hernandez
--- NOTE | 2016-07-30 08:30 | Nephrology Progress Note ---
Nephrology - PN: Subj Interval history: The patient is sitting up in chair. She will not keep her BiPAP on. However sats are noted to be 100%. Serum creatinine is stable at 1.9. Exam (PN)-Nephrology - Vital Signs Vital signs: Period Temp Pulse Resp BP Sys/Philippe Pulse Ox Last 24 Hr 98 F-98.6 F 63-76 14-36 124-152/50-76 93-100 - General Appearance General appearance: chronically ill, frail EENT: ATNC Neck: supple Respiratory: course breath sounds Cardiology: regular rate, regular rhythm Gastrointestinal: normoactive bowel sounds, no tenderness, no guarding Musculoskeletal: no clubbing - Lab 07/30/16 05:00 07/30/16 05:00 Most recent lab results ABG pH 7.306 (7.35-7.45) L 07/30/16 03:25 ABG pCO2 64.6 MM HG (35-48) H 07/30/16 03:25 ABG pO2 41.2 MM HG (80-95) L 07/30/16 03:25 ABG HCO3 27.8 MMOL/L (20-26) H 07/30/16 03:25 ABG O2 Saturation 65.4 % (95-100) L 07/30/16 03:25 Calcium 8.2 MG/DL (8.5-10.1) L 07/30/16 05:00 Magnesium 2.3 MG/DL (1.8-2.4) 07/30/16 05:00 Assessment and Plan (1) Chronic kidney disease Status: Chronic Assessment and plan: Strict I/Os. Avoid nephrotoxic agents Current Visit: Yes Qualifiers: Chronic kidney disease stage: stage 2 (mild) Qualified Code(s): N18.2 - Chronic kidney disease, stage 2 (mild) (2) Acute renal failure (ARF) Status: Acute Assessment and plan: More likely has chronic renal failure. Current Visit: Yes
[2016-07-30] MEDS: ISOSORBIDE MONONITRATE 30 MG TABLET PO SCH (08:43)
[2016-07-30] MEDS: SPIRONOLACTONE 25 MG TABLET PO SCH (08:43)
[2016-07-30] MEDS: FUROSEMIDE 40 MG/4 ML VIAL IV SCH ×3 (08:43→22:11)
[2016-07-30] MEDS: PANTOPRAZOLE 40 MG TABLET PO SCH (08:43)
[2016-07-30] MEDS: CARVEDILOL 6.25 MG TABLET PO SCH ×2 (08:43→22:12)
[2016-07-30] MEDS: CLORAZEPATE 3.75 MG TABLET PO PRN ×2 (08:43→19:05)
[2016-07-30] MEDS: SACUBITRIL/VALSARTAN 49-51 MG TABLET PO SCH (08:44)
[2016-07-30] MEDS: ASPIRIN EC 325 MG TABLET PO SCH (08:44)
--- NOTE | 2016-07-30 10:41 | Cardiology Progress Note ---
Assessment and Plan - Time spent with patient Time spent with patient: Greater than 30 minutes (1) Congestive heart failure, NYHA class 4 Status: Acute Assessment and plan: Patient has history of nonischemic cardiomyopathy. Severely reduced LVEF at 15% , [place] Heart Association classification IV. We're attempting diuresis as well as dobutamine infusion to try to optimize her cardiovascular status with there has been little clinical change. Current Visit: Yes Qualifiers: Congestive heart failure type: combined Congestive heart failure chronicity : acute on chronic Qualified Code(s): I50.43 - Acute on chronic combined systolic (congestive) and diastolic (congestive) heart failure (2) COPD (chronic obstructive pulmonary disease) Status: Chronic Assessment and plan: Clinically there is been little change. Current Visit: Yes Qualifiers: COPD type: COPD with acute exacerbation Qualified Code(s): J44.1 - Chronic obstructive pulmonary disease with (acute) exacerbation (3) Nonischemic cardiomyopathy Status: Chronic Assessment and plan: EF 15% Current Visit: Yes (4) Tobacco abuse Status: Chronic Assessment and plan: Encourage smoking cessation. Current Visit: Yes (5) Digoxin toxicity Status: Resolved Assessment and plan: This is resolved. Current Visit: Yes (6) Acute respiratory failure Status: Acute Assessment and plan: Persistent respiratory acidosis/hypoventilation, as well as hypoxia which is all multifactorial. Current Visit: No Qualifiers: Respiratory failure complication: hypoxia and hypercapnia Qualified Code(s) : J96.01 - Acute respiratory failure with hypoxia; J96.02 - Acute respiratory failure with hypercapnia (7) ICD (implantable cardioverter-defibrillator) in place Status: Chronic Current Visit: No (8) Renal failure Status: Chronic Assessment and plan: Her creatinine is down to 1.9. Current Visit: No (9) Hypertension Status: Acute Current Visit: Yes Cardiology - PN: Subj Interval history: I had a very long visit today with the patient and her entire family. I tried to discuss all aspects of her complicated clinical picture. I pointed out that she teeters on the brink of respiratory failure, and I introduced the concept of whether or not the patient would want to be placed back on the ventilator if she understood her clinical picture. Ultimate, despite our best efforts, she remains on the brink of respiratory failure with CO2 retention and hypoxia. She is combative of using the CPAP mask. If she were intubated, I think weaning her off the ventilator would be extremely difficult. I discussed all this with the patient's family today. The patient is relatively obtunded/ drowsy and doesn't provide any significant history or communication today. Current Medications Acetaminophen (Tylenol Tab) 325 mg PO Q4H PRN PRN Reason: fever, headache/body aches Last Admin: 07/26/16 08:16 Dose: 325 mg Hydrocodone Bitart/Acetaminophen (Lyons 5-325) 1 tablet PO Q6H PRN PRN Reason: Pain Moderate (4-7) Last Admin: 07/28/16 22:07 Dose: 1 tablet Albuterol/Ipratropium (Duoneb) 3 ml RESP TX RT Q6H PRN PRN Reason: Shortness of Breath/Wheezing Albuterol/Ipratropium (Duoneb) 3 ml RESP TX RT Q4H [facility] Last Admin: 07/30/16 07:00 Dose: Not Given Aspirin () 325 mg PO DAILY [facility] Last Admin: 07/30/16 08:44 Dose: 325 mg Carvedilol (Coreg) 6.25 mg PO BID [facility] Last Admin: 07/30/16 08:43 Dose: 6.25 mg Clorazepate Dipotassium (Tranxene) 3.75 mg PO BID PRN PRN Reason: Anxiety Last Admin: 07/30/16 08:43 Dose: 3.75 mg Docusate Sodium (Colace Cap) 100 mg PO BID PRN PRN Reason: Constipation Enoxaparin Sodium (Lovenox) 30 mg SUBCUT Q24H [facility] Last Admin: 07/29/16 14:33 Dose: 30 mg Furosemide (Lasix Inj) 80 mg IV TID [facility] Last Admin: 07/30/16 08:43 Dose: 80 mg Hydralazine HCl (Apresoline Tab) 10 mg PO Q8HR [facility] Last Admin: 07/30/16 06:44 Dose: 10 mg Dobutamine HCl/Dextrose () 500 mg in 250 mls @ 10.104 mls/hr IV .Q24H [facility] PRN Reason: 5 MCG/KG/MIN Last Admin: 07/29/16 16:01 Dose: 3.46 mcg/kg/min, 7 mls/hr Isosorbide Mononitrate (Imdur) 15 mg PO DAILY [facility] Last Admin: 07/30/16 08:43 Dose: 15 mg Methylprednisolone Sodium Succinate (Solumedrol) 40 mg IV Q12H [facility] Last Admin: 07/30/16 06:44 Dose: 40 mg Nystatin/Zinc Oxide (Skin Protectant Mixture) 1 applic TOP BID [facility] Last Admin: 07/29/16 21:52 Dose: Not Given Ondansetron HCl (Zofran Inj) 4 mg IV Q4H PRN PRN Reason: Nausea Pantoprazole Sodium (Protonix Tab) 40 mg PO DAILY [facility] Last Admin: 07/30/16 08:43 Dose: 40 mg Spironolactone (Aldactone) 25 mg PO DAILY [facility] Last Admin: 07/30/16 08:43 Dose: 25 mg Exam (Progress Note) - Constitutional Vitals: Period Temp Pulse Resp BP Sys/Philippe Pulse Ox Last 24 Hr 98.0 F-98.6 F 63-76 14-36 124-152/50-76 93-100 Exam: General: Frail chronically ill-appearing female wearing a CPAP mask in the ICU with mild respiratory distress HEENT: Normocephalic, atraumatic Cardiac: Regular rhythm. Heart sounds are somewhat obscured by noises of breathing Lungs: Coarse breath sounds with poor inspiratory effort Abdomen: Soft, Active Bowel Sounds, No Masses, No Pulsations/Bruits Skin: Normal color, no rash Extremities: No Clubbing, No Cyanosis, No Edema, Normal Upper Extr. Pulses Musculoskeletal: No acute abnormality noted, diffuse generalized weakness Result/EKG - Labs CBC & BMP: 07/30/16 05:00 07/30/16 05:00 Lab Results: I have reviewed the past 24 hour labs Labs: Laboratory Results - last 24 hr 07/29/16 07/30/16 07/30/16 16:30 03:25 05:00 WBC 4.9 RBC 4.04 Hgb 9.3 L Hct 32.1 L MCV 79.5 L MCH 23 L MCHC 29.0 L RDW 21.2 H Plt Count 145 MPV 10.1 Neut % (Auto) 75.6 H Lymph % (Auto) 11.4 L Florence % (Auto) 3.9 Eos % (Auto) 0.2 Baso % (Auto) 0.2 Neut # (Auto) 3.7 Lymph # (Auto) 0.6 L Florence # (Auto) 0.2 Eos # (Auto) 0.0 Baso # (Auto) 0.0 Total Counted 100 Immature Gran % 8.7 Nucleated RBC % 11.8 Immature Gran # 0.43 Segmented Neutrophils 87 H Band Neutrophils 1 Lymphocytes 11 L Monocytes 1 L Nucleated RBCs 13 H Nucleated RBCs # 0.58 Platelet Estimate Normal Polychromasia Slight Hypochromasia 1+ Macrocytosis Slight Elliptocytes Few Morphology Comment ABG pH 7.306 L ABG pCO2 64.6 H ABG pO2 41.2 L ABG HCO3 27.8 H ABG Total CO2 30.0 H ABG O2 Saturation 65.4 L ABG Base Excess 4.3 H FiO2 28.00 Sodium Potassium Chloride Carbon Dioxide Anion Gap BUN Creatinine GFR Calculation BUN/Creatinine Ratio Glucose Calculated Osmolality Calcium Magnesium B-Natriuretic Peptide Urine Color Yellow Urine Appearance Clear Urine pH 5.0 Ur Specific Joes 1.009 Urine Protein Negative Urine Glucose (UA) Negative Urine Ketones Negative Urine Blood Negative Urine Nitrate Negative Urine Bilirubin Negative Urine Urobilinogen < 2.0 H Urine Leukocytes Negative Urine RBC <1 Urine WBC 1 Ur Squamous Epith Cells Occasional Hyaline Casts 4 Urine Mucus Occasional Ur Culture Indicated? Not indicated 07/30/16 07/30/16 05:00 05:00 WBC RBC Hgb Hct MCV MCH MCHC RDW Plt Count MPV Neut % (Auto) Lymph % (Auto) Florence % (Auto) Eos % (Auto) Baso % (Auto) Neut # (Auto) Lymph # (Auto) Florence # (Auto) Eos # (Auto) Baso # (Auto) Total Counted Immature Gran % Nucleated RBC % Immature Gran # Segmented Neutrophils Band Neutrophils Lymphocytes Monocytes Nucleated RBCs Nucleated RBCs # Platelet Estimate Polychromasia Hypochromasia Macrocytosis Elliptocytes Morphology Comment ABG pH ABG pCO2 ABG pO2 ABG HCO3 ABG Total CO2 ABG O2 Saturation ABG Base Excess FiO2 Sodium 145 Potassium 4.1 Chloride 105 Carbon Dioxide 30 Anion Gap 14.1 BUN 69 H Creatinine 1.90 H GFR Calculation 29 BUN/Creatinine Ratio 36.00 H Glucose 121 H Calculated Osmolality 308.7 H Calcium 8.2 L Magnesium 2.3 B-Natriuretic Peptide > 5000 H Urine Color Urine Appearance Urine pH Ur Specific Joes Urine Protein Urine Glucose (UA) Urine Ketones Urine Blood Urine Nitrate Urine Bilirubin Urine Urobilinogen Urine Leukocytes Urine RBC Urine WBC Ur Squamous Epith Cells Hyaline Casts Urine Mucus Ur Culture Indicated? - EKG EKG results: interpreted by me
[2016-07-30] MEDS: DESITIN 4OZ/NYSTATIN 15 GRAM MIXTURE PASTE TOP SCH ×2 (12:40→22:12)
[2016-07-30] MEDS: ENOXAPARIN 30 MG/0.3 ML SYRINGE SUBCUT SCH (14:33)
[2016-07-31] MEDS: ALBUTEROL/IPRATROPIUM 3 ML NEB RESP TX SCH ×6 (03:50→20:08)
[2016-07-31 03:51] LABS: ABG Base Excess 6.6 MMOL/L (-2.5-2.5); ABG Oxygen Saturation 96.1 % (95-100); ABG PO2 98.9 MM HG (80-95); ABG TCO2 38.7 MMOL/L (23-27); Allen Test Positive
[2016-07-31 04:04] LABS: Basophils % 0.2 % (0.0-0.8); Hematocrit 35.8 VOL% (35.7-47.0); Hemoglobin 9.6 GM/DL (12.0-16.0); Immature Granulocytes % 9.7 %; Immature Granulocytes Absolute 0.49 #; Lymphocytes # 0.5 10*3/uL (1.4-4.0); Lymphocytes % 9.1 % (21.3-54.2); Mean Corpuscular HGB Conc 26.8 GM/DL (32-36); Mean Corpuscular Hemoglobin 22 PG (27-34); Mean Corpuscular Volume 83.3 FL (87-102); Mean Platelet Volume 9.8 FL (9.6-12.0); Monocytes # 0.2 10*3/uL (0.11-0.8); Monocytes % 4.3 % (1.7-12.7); NRBC # 0.77 10*3/uL; Neutrophils # 3.9 10*3/uL (1.4-7.4); Neutrophils % 76.7 % (38.7-73.9); Platelet Count 149 T/CUMM (130-400); Red Cell Distribution Width 21.5 % (9.3-17.3); White Blood Count 5.1 T/CUMM (4-12)
[2016-07-31 04:28] LABS: Calcium 8.2 MG/DL (8.5-10.1); Magnesium 2.4 MG/DL (1.8-2.4); Osmolality,Calculated 310.8 MOS/KG (273-304); Potassium 4.2 MMOL/L (3.5-5.1)
[2016-07-31 04:56] LABS: Band Neutrophils 2 % (0-10); Hypochromasia 3+; Lymphocytes 9 % (20-55); Nucleated Red Blood Cells 14 (0-5); Platelet Estimate Decreased; Segmented Neutrophils 86 % (50-85); Total Cells Counted 100
[2016-07-31 04:57] LABS: Acanthocytes 1+; Anisocytosis 2+; Macrocytosis 1+; Microcytosis 1+; Target Cells 2+
[2016-07-31] MEDS: DOBUTamine 500 MG/250 ML PREMIX IV SCH (05:41)
[2016-07-31] MEDS: methylPREDNISolone SOD SUC 40 MG/1 ML VIAL IV SCH ×2 (05:46→18:43)
[2016-07-31] MEDS: hydrALAZINE 10 MG TABLET PO SCH ×2 (05:47→14:30)
--- NOTE | 2016-07-31 06:53 | XRay Report ---
XR chest 1V portable Indication: Shortness of breath. Chest one view: Since yesterday, pacemaker, severe cardiomegaly, hazy obscuration of the left lung base again noted. There is increasing obscuration of the right lung base now present. Impression: Progressive right basilar pneumonia. PROCEDURE INTERPRETED AT [facility] DEPARTMENT OF RADIOLOGY Final Report Signed by: Jossue Hollins M.D.
[2016-07-31] MEDS: FUROSEMIDE 40 MG/4 ML VIAL IV SCH ×3 (08:41→21:53)
[2016-07-31] MEDS: PANTOPRAZOLE 40 MG TABLET PO SCH (08:41)
[2016-07-31] MEDS: SACUBITRIL/VALSARTAN 49-51 MG TABLET PO SCH (08:41)
[2016-07-31] MEDS: CARVEDILOL 6.25 MG TABLET PO SCH (08:41)
[2016-07-31] MEDS: ISOSORBIDE MONONITRATE 30 MG TABLET PO SCH (08:41)
[2016-07-31] MEDS: SPIRONOLACTONE 25 MG TABLET PO SCH (08:42)
[2016-07-31] MEDS: ASPIRIN EC 325 MG TABLET PO SCH (08:42)
--- NOTE | 2016-07-31 09:05 | Nephrology Progress Note ---
Nephrology - PN: Subj Interval history: The patient is resting. No acute changes. Serum creatinine is 1.9 which stable. Exam (PN)-Nephrology - Vital Signs Vital signs: Period Temp Pulse Resp BP Sys/Philippe Pulse Ox Last 24 Hr 97.2 F-98.3 F 60-76 13-30 82-133/42-82 94-100 - General Appearance General appearance: fatigue, frail EENT: ATNC Neck: supple Respiratory: clear Cardiology: no edema, regular rate, regular rhythm Gastrointestinal: normoactive bowel sounds, no tenderness Neurologic: alert and oriented x3 - Lab 07/31/16 03:32 07/31/16 03:32 Most recent lab results ABG pH 7.240 (7.35-7.45) L 07/31/16 03:25 ABG pCO2 86.0 MM HG (35-48) H* 07/31/16 03:25 ABG pO2 98.9 MM HG (80-95) H 07/31/16 03:25 ABG HCO3 36.0 MMOL/L (20-26) H 07/31/16 03:25 ABG O2 Saturation 96.1 % (95-100) 07/31/16 03:25 Calcium 8.2 MG/DL (8.5-10.1) L 07/31/16 03:32 Magnesium 2.4 MG/DL (1.8-2.4) 07/31/16 03:32 Assessment and Plan (1) Chronic kidney disease Status: Chronic Assessment and plan: Strict I/Os. Avoid nephrotoxic agents Current Visit: Yes Qualifiers: Chronic kidney disease stage: stage 2 (mild) Qualified Code(s): N18.2 - Chronic kidney disease, stage 2 (mild) (2) Acute renal failure (ARF) Status: Acute Assessment and plan: More likely has chronic renal failure. Current Visit: Yes
--- NOTE | 2016-07-31 10:24 | Pulmonology Progress Note ---
Pulmonary - PN: Subj Interval history: This is a 55-year-old black female whom I saw in pulmonary consultation on the night of 07/24/2016. I thought that her main problems were. 1. Severe nonischemic cardiomyopathy with a very low ejection fraction. 2. COPD with respiratory failure for oxygen and carbon dioxide. This patient to be appears to be a CO2 retainer may do better with a lower FiO2. 3. Tobacco abuser who continues to smoke 4. Dig toxicity 5. Acute renal failure. Consider the possibility dehydration could be involved. Consider the possibility of BARBRA inhibitors. 7. See past history 8. Mild liver failure with elevated ammonia level.. 07/25/2016. Today's chest x-ray is about the same. Patient has core bovine. There are increased right perihilar and right lower lung markings which I think are probably congestive heart failure. She was started on dobutamine last night and also given Lasix and has begun to diurese. Her creatinine is 2.30. This is higher than it has recently been when she has been in the hospital. Electrolytes are normal. Natruretic peptide is fallen from 4202 2 2947. Dig level is dropped from 2.5-1.8. ABGs this morning on FiO2 of 30% and BiPAP show a pH of 7.25. PCO2 is 68.8. PO2 is 66. Bicarb is 25.4 later on the on FiO2 30 2. and no BiPAP. PH was 7.28. PCO2 was 66.9. PO2 is 58.6. Bicarb was 26.9. I think the patient can bypass the BiPAP for the present time. I think will gradually be able to decrease her FiO2. She will seek the same level of oxygenation but breathe faster lower FiO2. Patient's more alert this morning. I have days discussed the case with Dr. Ayala and we are coordinating care. 07/26/2016. This morning on 2 L/min oxygen the patient's blood gases showed a pH 7.29. PCO2 was 68.6. PO2 was 65.8. Bicarb is 32.2. I tried her on 1 L/min oxygen for an hour and follow-up blood gases showed a pH of 7.323. PCO2 dropped to 60.4. PO2 was 50.8. Bicarb is 27.7. It looks like her best on her oxygen is going to be between 1 and 2 L. She will breathe to a certain level to maintain PO2's at 60 5. Creatinine is dropped to 1.8 with a BUN of 57. Electrolytes are normal. Natruretic peptide is dropped to 2043. Overall the patient is a little stronger and a little better. Her chest x-ray is about the same with increased interstitial markings seen in the right perihilar area in the right base. Her heart so big I cannot see the left lung clear 07/27/2016. Patient was seen along with her daughter. She has had an uneventful day. Her chest x-ray is unchanged from previous descriptions. ABGs on FiO2 24 % show a pH 7.33. PCO2 has dropped 54.8. PO2 is 47.5. Bicarb is 26.2. Electrolytes are normal. Creatinine is 2.0 with a BUN of 59. Natruretic peptide is greater than 5000. I made no alterations in this patient's therapy today. She does better with a low FiO2. Underlying heart disease is to keep problem Superimposed on severe COPD. We will continue to follow chest x-rays and ABGs. 07/28/2016. This patient has core bovine and congestive heart failure. She has a markedly decreased cardiac output. She has underlying COPD and she has continued to smoke up until the time of this admission. I discussed this with her daughter today. She said this is the other daughter brings her cigarettes. This patient had respiratory failure for carbon dioxide with PCO2's in the 80s. She also has respiratory failure. She has done best on the low FiO2. Today on FiO2 of 24% her pH is 7.33. PCO2 is 58.1. PO2 is 69.5 and bicarb is 30. Her chest x-ray continues to show congestive heart failure. She has stable anemia. Creatinine is 2.10. BUN is 63. Natruretic peptide is greater than 5000. Will physical exam she is comfortable laying on her side. 07/31/2016. This patient has been moved to ICU. When I last saw her 07/28/2016 she was on FiO2 of 24%. Her ABG showed a pH 7.331. PCO2 was 58.1. PO2 is 69.5. Bicarb was 30. Since then her FiO2 was increased to 30 and then reduce to 28 today on 28 she has a pH of 7.24. PCO2 is 89. PO2 is 98.9. Bicarb is 36. I have reduced her FiO2 to 1 L/min oxygen and will repeat it. As previously noted this is a CO2 retainer. She has to be on low oxygen. Do not treat the O2 sats. Electrolytes are normal. Creatinine stable at 1.90. BUN is 70. White count is 5177 segs 9 lymphs 4 monocytes. H&H 9.6/35.8 and platelets are 149,000 today's chest x-ray shows congestive heart failure. Physical exam. Vital signs. See below Psychiatric. Sedated but aroused. At times the patient is cooperative. Face is symmetrical. Patient has an element of exophthalmos Neck. Symmetrical. No mass Lymphatics. No submandibular cervical supraclavicular adenopathy. No epitrochlear adenopathy. Chest. Mild large airway congestion. No wheezes. Heart. Far lateral PMI Abdomen. Rare bowel sounds. Extremities. Nothing to suggest deep venous thrombophlebitis. Doppler venograms dated 07/24/2016 are negative for deep venous thrombophlebitis. Neurologic. Cranial nerves appear to be intact. Patient moves all fours. The remainder of the physical exam is negative. Plan. 1. 07/31/2016. decrease FiO2 to 1 L/min. repeat ABGs in 1 hour. This is a CO2 retainer. Do not treat O2 sat 2. Patient's on Lasix. Previously she was on dobutamine 3 Daily chest x-ray and ABGs. 4 Agree with antibiotics and steroids on the chance that we are dealing with pneumonia. 8. Continue low FiO2's. Continue treating congestive heart failure. Have asked daughter to keep her cigarettes away from her at home. Exam (Progress Note) - Constitutional Vitals: Period Temp Pulse Resp BP Sys/Philippe Pulse Ox Last 24 Hr 97.2 F-98.3 F 60-76 13-30 82-133/42-82 93-100 Results - Labs CBC & BMP: 07/31/16 03:32 07/31/16 03:32
[2016-07-31 10:29] LABS: Allen Test Positive
[2016-07-31 10:30] LABS: ABG Base Excess 3.8 MMOL/L (-2.5-2.5); ABG HCO3 27.7 MMOL/L (20-26); ABG PH 7.246 (7.35-7.45); ABG PO2 66.8 MM HG (80-95)
[2016-07-31 10:33] LABS: ABG PCO2 76.4 MM HG (35-48)
--- NOTE | 2016-07-31 13:50 | Hospitalist Progress Note ---
Assessment and Plan (1) Congestive heart failure, NYHA class 4 Status: Acute Assessment and plan: cont coreg, weaned off dobutamine, cont spironolactone and cont lasix 80 mg IV every 12 hours, sacubitril/valsartan Current Visit: Yes Qualifiers: Congestive heart failure type: combined Congestive heart failure chronicity : acute on chronic Qualified Code(s): I50.43 - Acute on chronic combined systolic (congestive) and diastolic (congestive) heart failure (2) Acute on chronic renal failure Status: Acute Assessment and plan: Dr Jay managing Current Visit: Yes (3) Nonischemic cardiomyopathy Status: Chronic Assessment and plan: Patient's EF is 15%. She has an acute systolic congestive heart failure exacerbation Current Visit: Yes (4) Acute exacerbation of chronic obstructive airways disease Status: Acute Assessment and plan: Continue duo nebs and steroids at 40 mg IV every 12, no antibiotics Current Visit: Yes (5) Hypertension Status: Acute Assessment and plan: Controlled Current Visit: Yes (6) Acute respiratory failure Status: Acute Assessment and plan: Resolving Current Visit: Yes Hospitalist: Subjective Interval history: Nursing reports patient is not cooperative with vitals, blood draws and will not talk to me or Dr. Jay. I spoke with her daughter patient had wants to be a DNR/DNI and she okayed me to change her CODE STATUS. Talked to Dr. Enriquez about her dobutamine and we will try to get her off today so she can be transferred to the floor. Exam - Constitutional Vitals: Period Temp Pulse Resp BP Sys/Philippe Pulse Ox Last 24 Hr 97.7 F-98.3 F 60-70 13-30 82-122/42-82 90-100 Exam: Heart Rate-[RRR] Lungs-[CTAB] GI-[+bs soft, NT] Ext-[no edema] neuro wouldnot cooperate with physical exam psych depressed mood and affect general no acute distres but mad Results - Labs CBC & BMP: 07/31/16 03:32 07/31/16 03:32 Lab Results: I have reviewed the past 24 hour labs - Diagnostic Findings Procedure: Chest x-ray: report reviewed by me (right basilar pneumonia )
[2016-07-31] MEDS: ENOXAPARIN 30 MG/0.3 ML SYRINGE SUBCUT SCH (14:30)
[2016-07-31] MEDS: DESITIN 4OZ/NYSTATIN 15 GRAM MIXTURE PASTE TOP SCH ×2 (15:59→22:27)
[2016-07-31] MEDS: CLORAZEPATE 3.75 MG TABLET PO PRN (21:53)
--- NOTE | 2016-07-31 21:57 | Cardiology Progress Note ---
I, Cintia Zuñiga RN, am scribing for, and in the presence of, Sandro Enriquez MD 21:56. Assessment and Plan (1) Congestive heart failure Status: Acute Assessment and plan: Her nonischemic cardiomyopathy is requiring dobutamine for adequate blood pressure. She probably also has some diastolic dysfunction, given her respiratory failure. She has COPD. It is been decided to taper off the dobutamine. If her blood pressure is adequate we'll move to a nonmonitored bed and leave her off the dobutamine.. The family is decided on DNR. I agree with that plan. Her prognosis is very guarded. Current Visit: Yes (2) Acute respiratory acidosis Status: Acute Current Visit: Yes (3) Digoxin toxicity Status: Resolved Current Visit: Yes (4) Nonischemic cardiomyopathy Status: Chronic Assessment and plan: EF 15% by ECHO 06/14/16 with advanced diastolic dysfunction and severe tricuspid regurgitation. Current Visit: Yes (5) Tobacco abuse Status: Chronic Current Visit: Yes (6) ICD (implantable cardioverter-defibrillator) in place Status: Chronic Current Visit: No Cardiology - PN: Subj Interval history: Resting in bed in no acute distress, oxygen in use via NBP. She is awake and alert, but will not talk to me this morning. She is in sinus rhythm with heart rates in the 60's. She is on a dobutamine infusion, we will try to wean this off when this bag is complete if her blood pressure will tolerate. According to the nurse, the family has decided to make her a DNR. Exam (Progress Note) - Constitutional Vitals: Period Temp Pulse Resp BP Sys/Philippe Pulse Ox Last 24 Hr 97.2 F-98.3 F 60-71 13-30 82-126/42-82 90-100 General appearance: normal weight, no acute distress - Head Head exam: Absent: abrasion, hematoma - Eye Eye exam: Absent: periorbital swelling, laceration to eyelids - Respiratory Respiratory exam: Present: rales, other (oxygen via NBP). Absent: accessory muscle use, chest wall tenderness - Cardiovascular Cardiovascular exam: Present: regular rate and rhythm - GI/Abdominal GI/Abdominal exam: Present: normal bowel sounds, soft. Absent: distended - Extremities Exam Extremities exam: Absent: edema - Neurological Exam Neurological exam: Present: alert - Psychiatric Psychiatric exam: Present: flat affect - Skin Skin exam: Present: warm, dry Result/EKG - Labs CBC & BMP: 07/31/16 03:32 07/31/16 03:32 Lab Results: I have reviewed the past 24 hour labs Labs: Laboratory Results - last 24 hr 07/25/16 07/31/16 07/31/16 12:00 03:25 03:32 WBC 5.1 RBC 4.30 Hgb 9.6 L Hct 35.8 MCV 83.3 L MCH 22 L MCHC 26.8 L RDW 21.5 H Plt Count 149 MPV 9.8 Neut % (Auto) 76.7 H Lymph % (Auto) 9.1 L Andrews % (Auto) 4.3 Eos % (Auto) 0.0 Baso % (Auto) 0.2 Neut # (Auto) 3.9 Lymph # (Auto) 0.5 L Andrews # (Auto) 0.2 Eos # (Auto) 0.0 Baso # (Auto) 0.0 Total Counted 100 Immature Gran % 9.7 Nucleated RBC % 15.2 Immature Gran # 0.49 Segmented Neutrophils 86 H Band Neutrophils 2 Lymphocytes 9 L Monocytes 3 Nucleated RBCs 14 H Nucleated RBCs # 0.77 Platelet Estimate Decreased Hypochromasia 3+ Anisocytosis 2+ Microcytosis 1+ Macrocytosis 1+ Target Cells 2+ Acanthocytes (Spur) 1+ ABG pH 7.240 L ABG pCO2 86.0 H* ABG pO2 98.9 H ABG HCO3 36.0 H ABG Total CO2 38.7 H ABG O2 Saturation 96.1 ABG Base Excess 6.6 H FiO2 28.00 Sodium Potassium Chloride Carbon Dioxide Anion Gap BUN Creatinine GFR Calculation BUN/Creatinine Ratio Glucose Calculated Osmolality Calcium Magnesium B-Natriuretic Peptide O & P Concentrate Exam See comments 07/31/16 07/31/16 07/31/16 03:32 03:32 10:25 WBC RBC Hgb Hct MCV MCH MCHC RDW Plt Count MPV Neut % (Auto) Lymph % (Auto) Andrews % (Auto) Eos % (Auto) Baso % (Auto) Neut # (Auto) Lymph # (Auto) Andrews # (Auto) Eos # (Auto) Baso # (Auto) Total Counted Immature Gran % Nucleated RBC % Immature Gran # Segmented Neutrophils Band Neutrophils Lymphocytes Monocytes Nucleated RBCs Nucleated RBCs # Platelet Estimate Hypochromasia Anisocytosis Microcytosis Macrocytosis Target Cells Acanthocytes (Spur) ABG pH 7.246 L ABG pCO2 76.4 H* ABG pO2 66.8 L ABG HCO3 27.7 H ABG Total CO2 31.0 H ABG O2 Saturation 90.0 L ABG Base Excess 3.8 H FiO2 24.00 Sodium 144 Potassium 4.2 Chloride 103 Carbon Dioxide 32 Anion Gap 13.2 BUN 70 H Creatinine 1.90 H GFR Calculation 29 BUN/Creatinine Ratio 36.00 H Glucose 173 H Calculated Osmolality 310.8 H Calcium 8.2 L Magnesium 2.4 B-Natriuretic Peptide > 5000 H O & P Concentrate Exam - EKG EKG results: interpreted by me EKG shows: sinus rhythm IMina Dale, MD, personally performed the services described in this documentation, ascribed by Cintia Zuñiga RN in my presence, and it is both accurate and complete .
[2016-08-01] MEDS: hydrALAZINE 10 MG TABLET PO SCH ×4 (00:03→21:00)
[2016-08-01] MEDS: CARVEDILOL 6.25 MG TABLET PO SCH ×3 (00:03→20:59)
[2016-08-01] MEDS: ALBUTEROL/IPRATROPIUM 3 ML NEB RESP TX SCH ×7 (00:06→22:30)
[2016-08-01 04:41] LABS: ABG Base Excess 4.5 MMOL/L (-2.5-2.5); ABG HCO3 28.2 MMOL/L (20-26); ABG Oxygen Saturation 84.7 % (95-100); ABG PH 7.259 (7.35-7.45); ABG PO2 58.8 MM HG (80-95); ABG TCO2 31.4 MMOL/L (23-27); Allen Test Positive
[2016-08-01 04:46] LABS: ABG PCO2 75.5 MM HG (35-48)
[2016-08-01] MEDS: methylPREDNISolone SOD SUC 40 MG/1 ML VIAL IV SCH ×2 (06:28→21:02)
--- NOTE | 2016-08-01 07:22 | XRay Report ---
XR chest 1V portable Indication: Hypoxemia, shortness of breath and cardiomyopathy. Chest one view: Comparison yesterday shows stable severe cardiomegaly, AICD, and continued pulmonary vascular congestion. Left hemidiaphragm remains completely obscured as does hazy obscuration of the right lung base. Impression: No change. PROCEDURE INTERPRETED AT [facility] DEPARTMENT OF RADIOLOGY Final Report Signed by: Jossue Hollins M.D.
[2016-08-01] MEDS: ISOSORBIDE MONONITRATE 30 MG TABLET PO SCH (08:48)
[2016-08-01] MEDS: SACUBITRIL/VALSARTAN 49-51 MG TABLET PO SCH (08:48)
[2016-08-01] MEDS: PANTOPRAZOLE 40 MG TABLET PO SCH (08:48)
[2016-08-01] MEDS: SPIRONOLACTONE 25 MG TABLET PO SCH (08:48)
[2016-08-01] MEDS: ASPIRIN EC 325 MG TABLET PO SCH (08:48)
[2016-08-01] MEDS ORDERED: FUROSEMIDE 20 MG/2 ML VIAL ONE ×3 (08:52→20:34)
[2016-08-01] MEDS: FUROSEMIDE 40 MG/4 ML VIAL IV SCH ×3 (08:57→20:59)
[2016-08-01] MEDS: DESITIN 4OZ/NYSTATIN 15 GRAM MIXTURE PASTE TOP SCH ×2 (08:57→21:05)
--- NOTE | 2016-08-01 11:15 | Pulmonology Progress Note ---
Pulmonary - PN: Subj Interval history: This is a 55-year-old black female whom I saw in pulmonary consultation on the night of 07/24/2016. I thought that her main problems were. 1. Severe nonischemic cardiomyopathy with a very low ejection fraction. 2. COPD with respiratory failure for oxygen and carbon dioxide. This patient to be appears to be a CO2 retainer may do better with a lower FiO2. 3. Tobacco abuser who continues to smoke 4. Dig toxicity 5. Acute renal failure. Consider the possibility dehydration could be involved. Consider the possibility of BARBRA inhibitors. 7. See past history 8. Mild liver failure with elevated ammonia level.. 07/25/2016. Today's chest x-ray is about the same. Patient has core bovine. There are increased right perihilar and right lower lung markings which I think are probably congestive heart failure. She was started on dobutamine last night and also given Lasix and has begun to diurese. Her creatinine is 2.30. This is higher than it has recently been when she has been in the hospital. Electrolytes are normal. Natruretic peptide is fallen from 4202 2 2947. Dig level is dropped from 2.5-1.8. ABGs this morning on FiO2 of 30% and BiPAP show a pH of 7.25. PCO2 is 68.8. PO2 is 66. Bicarb is 25.4 later on the on FiO2 30 2. and no BiPAP. PH was 7.28. PCO2 was 66.9. PO2 is 58.6. Bicarb was 26.9. I think the patient can bypass the BiPAP for the present time. I think will gradually be able to decrease her FiO2. She will seek the same level of oxygenation but breathe faster lower FiO2. Patient's more alert this morning. I have days discussed the case with Dr. Ayala and we are coordinating care. 07/26/2016. This morning on 2 L/min oxygen the patient's blood gases showed a pH 7.29. PCO2 was 68.6. PO2 was 65.8. Bicarb is 32.2. I tried her on 1 L/min oxygen for an hour and follow-up blood gases showed a pH of 7.323. PCO2 dropped to 60.4. PO2 was 50.8. Bicarb is 27.7. It looks like her best on her oxygen is going to be between 1 and 2 L. She will breathe to a certain level to maintain PO2's at 60 5. Creatinine is dropped to 1.8 with a BUN of 57. Electrolytes are normal. Natruretic peptide is dropped to 2043. Overall the patient is a little stronger and a little better. Her chest x-ray is about the same with increased interstitial markings seen in the right perihilar area in the right base. Her heart so big I cannot see the left lung clear 07/27/2016. Patient was seen along with her daughter. She has had an uneventful day. Her chest x-ray is unchanged from previous descriptions. ABGs on FiO2 24 % show a pH 7.33. PCO2 has dropped 54.8. PO2 is 47.5. Bicarb is 26.2. Electrolytes are normal. Creatinine is 2.0 with a BUN of 59. Natruretic peptide is greater than 5000. I made no alterations in this patient's therapy today. She does better with a low FiO2. Underlying heart disease is to keep problem Superimposed on severe COPD. We will continue to follow chest x-rays and ABGs. 07/28/2016. This patient has core bovine and congestive heart failure. She has a markedly decreased cardiac output. She has underlying COPD and she has continued to smoke up until the time of this admission. I discussed this with her daughter today. She said this is the other daughter brings her cigarettes. This patient had respiratory failure for carbon dioxide with PCO2's in the 80s. She also has respiratory failure. She has done best on the low FiO2. Today on FiO2 of 24% her pH is 7.33. PCO2 is 58.1. PO2 is 69.5 and bicarb is 30. Her chest x-ray continues to show congestive heart failure. She has stable anemia. Creatinine is 2.10. BUN is 63. Natruretic peptide is greater than 5000. Will physical exam she is comfortable laying on her side. 07/31/2016. This patient has been moved to ICU. When I last saw her 07/28/2016 she was on FiO2 of 24%. Her ABG showed a pH 7.331. PCO2 was 58.1. PO2 is 69.5. Bicarb was 30. Since then her FiO2 was increased to 30 and then reduce to 28 today on 28 she has a pH of 7.24. PCO2 is 89. PO2 is 98.9. Bicarb is 36. I have reduced her FiO2 to 1 L/min oxygen and will repeat it. As previously noted this is a CO2 retainer. She has to be on low oxygen. Do not treat the O2 sats. Electrolytes are normal. Creatinine stable at 1.90. BUN is 70. White count is 5177 segs 9 lymphs 4 monocytes. H&H 9.6/35.8 and platelets are 149,000 today's chest x-ray shows congestive heart failure. 08/01/2016. This patient's been made a DO NOT RESUSCITATE. Today's chest x-ray shows massive cardiomegaly. She has fluid-filled both costophrenic angles. There is interstitial edema in the right lung most prominent in the right lower lung. Only the apices of the left lung could be seen and I do not see any pulmonary edema there. ABGs on FiO2 24% shows a pH 7.259. PCO2 is 75.5. PO2 is 58.8. Bicarb is 28.2. Labs been reviewed. Medicines are been reviewed. Physical exam. Vital signs. See below Psychiatric. Awake. Arousable. At times the patient is cooperative. Face is symmetrical. Patient has an element of exophthalmos Neck. Symmetrical. No mass Lymphatics. No submandibular cervical supraclavicular adenopathy. No epitrochlear adenopathy. Chest. Mild large airway congestion. No wheezes. Heart. Far lateral PMI Abdomen. Rare bowel sounds. Extremities. Nothing to suggest deep venous thrombophlebitis. Doppler venograms dated 07/24/2016 are negative for deep venous thrombophlebitis. Neurologic. Cranial nerves appear to be intact. Patient moves all fours. The remainder of the physical exam is negative. Plan. 1. 07/31/2016. decrease FiO2 to 1 L/min. repeat ABGs in 1 hour. This is a CO2 retainer. Do not treat O2 sat 2. Patient's on Lasix. Previously she was on dobutamine 3 Daily chest x-ray and ABGs. 4 Agree with antibiotics and steroids on the chance that we are dealing with pneumonia. 5. 08/01/2016. No changes were made. Prognosis remains very poor. Agree with DO NOT RESUSCITATE 8. Continue low FiO2's. Continue treating congestive heart failure. Have asked daughter to keep her cigarettes away from her at home. Exam (Progress Note) - Constitutional Vitals: Period Temp Pulse Resp BP Sys/Philippe Pulse Ox Last 24 Hr 97.3 F-98.6 F 60-70 14-24 81-115/46-69 89-98 Results - Labs CBC & BMP: 07/31/16 03:32 07/31/16 03:32
[2016-08-01] MEDS: DOBUTamine 500 MG/250 ML PREMIX IV SCH (13:29)
--- NOTE | 2016-08-01 14:20 | Nephrology Progress Note ---
Nephrology - PN: Subj Interval history: The patient is resting comfortably. She appears a little stronger today. Serum creatinine is 1.90. Family is at the bedside. Exam (PN)-Nephrology - Vital Signs Vital signs: Period Temp Pulse Resp BP Sys/Philippe Pulse Ox Last 24 Hr 97.3 F-98.6 F 60-70 14-24 81-115/46-66 89-98 - General Appearance General appearance: fatigue, frail EENT: ATNC Neck: no carotid bruit, supple Respiratory: clear Cardiology: regular rate, regular rhythm Gastrointestinal: normoactive bowel sounds, no tenderness Neurologic: alert and oriented x3 Psychiatric: mood/affect appropriate - Lab 07/31/16 03:32 07/31/16 03:32 Most recent lab results ABG pH 7.259 (7.35-7.45) L 08/01/16 04:35 ABG pCO2 75.5 MM HG (35-48) H* 08/01/16 04:35 ABG pO2 58.8 MM HG (80-95) L 08/01/16 04:35 ABG HCO3 28.2 MMOL/L (20-26) H 08/01/16 04:35 ABG O2 Saturation 84.7 % (95-100) L 08/01/16 04:35 Calcium 8.2 MG/DL (8.5-10.1) L 07/31/16 03:32 Magnesium 2.4 MG/DL (1.8-2.4) 07/31/16 03:32 Assessment and Plan (1) Chronic kidney disease Status: Chronic Assessment and plan: Strict I/Os. Avoid nephrotoxic agents Current Visit: Yes Qualifiers: Chronic kidney disease stage: stage 2 (mild) Qualified Code(s): N18.2 - Chronic kidney disease, stage 2 (mild) (2) Acute renal failure (ARF) Status: Acute Assessment and plan: More likely has chronic renal failure. This is stable. Current Visit: Yes
--- NOTE | 2016-08-01 16:01 | Hospitalist Progress Note ---
Assessment and Plan (1) Congestive heart failure, NYHA class 4 Status: Acute Assessment and plan: cont coreg, increase Lasix 120 mg IV every tid, sacubitril/valsartan Current Visit: Yes Qualifiers: Congestive heart failure type: combined Congestive heart failure chronicity : acute on chronic Qualified Code(s): I50.43 - Acute on chronic combined systolic (congestive) and diastolic (congestive) heart failure (2) Acute on chronic renal failure Status: Acute Assessment and plan: Dr Jay managing relatively stable Current Visit: Yes (3) Nonischemic cardiomyopathy Status: Chronic Assessment and plan: Patient's EF is 15%. She has an acute systolic congestive heart failure exacerbation Current Visit: Yes (4) Acute exacerbation of chronic obstructive airways disease Status: Acute Assessment and plan: Continue duo nebs and steroids at 40 mg IV every 12, mainly due to heart failure Current Visit: Yes (5) Hypertension Status: Acute Assessment and plan: Controlled Current Visit: Yes (6) Acute respiratory failure Status: Acute Assessment and plan: We will continue to worsen due to her turning down BiPAP. Her CO2 will continue to rise until she becomes unresponsive. Current Visit: Yes Hospitalist: Subjective Interval history: Daughters have requested that she moved to telemetry. We are waiting for a bed to open up. Both her daughters were at bedside. Patient still culture shows MRSA. Blood cultures 2 were negative. Her nares was negative for MRSA. No need to continue checking ABGs when she has refused BiPAP Exam - Constitutional Vitals: Period Temp Pulse Resp BP Sys/Philippe Pulse Ox Last 24 Hr 97.3 F-98.6 F 60-70 15-24 81-115/46-66 89-98 Exam: Heart Rate-[RRR] Lungs-[coarse bilateral crackles] GI-[+bs soft, NT] Ext-[no edema] neuro more confused psych depressed mood and affect general no acute distres but mad Results - Labs CBC & BMP: 07/31/16 03:32 07/31/16 03:32 Lab Results: I have reviewed the past 24 hour labs Labs: Blood cultures 2 negative, stool is positive for MRSA
--- NOTE | 2016-08-01 17:00 | Cardiology Progress Note ---
Nelson Tipton Vanessa, RN, am scribing for, and in the presence of, Benjamin Laguerre MD 16:58. Assessment and Plan - Time spent with patient Time spent with patient: Less than 30 minutes (1) Congestive heart failure, NYHA class 4 Status: Acute Assessment and plan: 1. Improving acute systolic heart failure (nonischemic cardiomyopathy) with ejection fraction of 15% previous on dobutamine intubated, now tolerating Coreg 6.25 g twice a day as well as Entresto 2. Lower extremity edema is essentially resolved, but she still has elevated JVP, and crackles in her lungs 3. Continue to watch electrolytes and renal function; check BMP with magnesium in the morning 4. Reported previous digitoxin toxicity 5. We'll be critical for to avoid tobacco use 6. Previous respiratory acidosis noted 7. Previous ICD placement 8. DNR patient Current Visit: Yes Qualifiers: Congestive heart failure type: combined Congestive heart failure chronicity : acute on chronic Qualified Code(s): I50.43 - Acute on chronic combined systolic (congestive) and diastolic (congestive) heart failure (2) Acute respiratory acidosis Status: Acute Current Visit: Yes (3) Nonischemic cardiomyopathy Status: Chronic Current Visit: Yes (4) Digoxin toxicity Status: Resolved Current Visit: Yes (5) ICD (implantable cardioverter-defibrillator) in place Status: Chronic Current Visit: No Cardiology - PN: Subj Interval history: 55 year old female admitted on 07/24/16 for shortness of breath and lethargy, altered LOC on arrival, admitted to ICU for acute respiratory acidosis. Known history of opiate abuse. Showed improvement after receiving Narcan. Chronically ill with recurrent CHF, nonischemic cardiomyopathy with EF of 15%, paroxysmal atrial fibrillation, AICD placement, chronic renal failure, COPD. IV dobutamine titrated off yesterday after hypotension with accompanying decreased urine output and most likely diastolic dysfunction. Transferred from ICU to med surg floor yesterday afternoon and there have been no acute hemodynamic changes overnight. Routinely followed by Dr. Valadez. This admission she has been previously evaluated and treated by Dr. Callejas and yesterday by Dr. Enriquez. Since admission, poor prognosis has been discussed with patient's family, and patient is now DNR status. Some hypotension noted overnight with blood pressure as low as 81/46, currently 108/65. She is drowsy today, but will open eyes and make eye contact, attempts to shake head "yes" and "no" in response to questions. ABG's this morning reviewed and noted. Daughter at bedside states patient is sleepy this morning after being awake most of the night overnight after having slept through most of the daytime yesterday. Exam (Progress Note) - Constitutional Vitals: Period Temp Pulse Resp BP Sys/Philippe Pulse Ox Last 24 Hr 97.3 F-98.6 F 60-70 14-24 81-115/46-69 89-98 General appearance: normal weight, no acute distress - Head Head exam: Absent: abrasion, hematoma, laceration - Eye Eye exam: Absent: periorbital swelling, laceration to eyelids Pupils: Present: TEJINDER. Absent: dilated, fixed - ENT ENT exam: Present: normal external ear exam - Neck Neck exam: Absent: tenderness - Respiratory Respiratory exam: Present: rales (bilaterally; throughout). Absent: rhonchi, stridor, wheezes - Cardiovascular Cardiovascular exam: Present: regular rate and rhythm (bigeminy ). Absent: bradycardia, JVD, tachycardia - GI/Abdominal GI/Abdominal exam: Present: normal bowel sounds, soft. Absent: ascites, firm, tenderness - Extremities Exam Extremities exam: Present: normal capillary refill. Absent: full ROM, calf tenderness, edema - Neurological Exam Neurological exam: Present: other (does not follow commands, does make eye contact) - Psychiatric Psychiatric exam: Present: flat affect, other (seems obtunded). Absent: anxious - Skin Skin exam: Present: warm, dry Result/EKG - Labs CBC & BMP: 07/31/16 03:32 07/31/16 03:32 Lab Results: I have reviewed the past 24 hour labs Labs: Laboratory Results - last 24 hr 07/31/16 08/01/16 10:25 04:35 ABG pH 7.246 L 7.259 L ABG pCO2 76.4 H* 75.5 H* ABG pO2 66.8 L 58.8 L ABG HCO3 27.7 H 28.2 H ABG Total CO2 31.0 H 31.4 H ABG O2 Saturation 90.0 L 84.7 L ABG Base Excess 3.8 H 4.5 H FiO2 24.00 24.00 - EKG EKG results: interpreted by me, sinus rhythm I, Benjamin Laguerre MD, personally performed the services described in this documentation, ascribed by Diana Damon RN in my presence, and it is both accurate and complete .
[2016-08-01] MEDS ORDERED: FUROSEMIDE 100 MG/10 ML VIAL ONE (20:33)
[2016-08-01] MEDS: ENOXAPARIN 30 MG/0.3 ML SYRINGE SUBCUT SCH (21:01)
[2016-08-02] MEDS: ALBUTEROL/IPRATROPIUM 3 ML NEB RESP TX SCH ×5 (03:24→19:46)
[2016-08-02 06:36] LABS: Magnesium 2.3 MG/DL (1.8-2.4); Osmolality,Calculated 314.4 MOS/KG (273-304); Potassium 4.6 MMOL/L (3.5-5.1)
--- NOTE | 2016-08-02 07:48 | XRay Report ---
XR chest 1V portable Indication: Hypoxia. Shortness of breath. Cardiomegaly. Chest one view: Since yesterday, found cardiomegaly, AICD, dense opacification of the left mid lung and lung base, and reticular nodular prominence of the aerated portions of both lungs again noted. No new infiltrates are seen. Impression: No significant change. PROCEDURE INTERPRETED AT [facility] DEPARTMENT OF RADIOLOGY Final Report Signed by: Jossue Hollins M.D.
[2016-08-02] MEDS: hydrALAZINE 10 MG TABLET PO SCH ×3 (07:59→22:04)
[2016-08-02] MEDS: SPIRONOLACTONE 25 MG TABLET PO SCH (09:22)
[2016-08-02] MEDS: SACUBITRIL/VALSARTAN 49-51 MG TABLET PO SCH (09:22)
[2016-08-02] MEDS: CARVEDILOL 6.25 MG TABLET PO SCH ×3 (09:22→22:04)
[2016-08-02] MEDS: ISOSORBIDE MONONITRATE 30 MG TABLET PO SCH (09:22)
[2016-08-02] MEDS: methylPREDNISolone SOD SUC 40 MG/1 ML VIAL IV SCH ×2 (09:22→21:56)
[2016-08-02] MEDS: PANTOPRAZOLE 40 MG TABLET PO SCH (09:22)
[2016-08-02] MEDS: ASPIRIN EC 325 MG TABLET PO SCH (09:22)
[2016-08-02] MEDS: FUROSEMIDE 40 MG/4 ML VIAL IV SCH ×3 (09:23→22:00)
[2016-08-02] MEDS: DESITIN 4OZ/NYSTATIN 15 GRAM MIXTURE PASTE TOP SCH ×2 (09:24→22:09)
--- NOTE | 2016-08-02 10:19 | Pulmonology Progress Note ---
Pulmonary - PN: Subj Interval history: This is a 55-year-old black female whom I saw in pulmonary consultation on the night of 07/24/2016. I thought that her main problems were. 1. Severe nonischemic cardiomyopathy with a very low ejection fraction. 2. COPD with respiratory failure for oxygen and carbon dioxide. This patient to be appears to be a CO2 retainer may do better with a lower FiO2. 3. Tobacco abuser who continues to smoke 4. Dig toxicity 5. Acute renal failure. Consider the possibility dehydration could be involved. Consider the possibility of BARBRA inhibitors. 7. See past history 8. Mild liver failure with elevated ammonia level.. 07/25/2016. Today's chest x-ray is about the same. Patient has core bovine. There are increased right perihilar and right lower lung markings which I think are probably congestive heart failure. She was started on dobutamine last night and also given Lasix and has begun to diurese. Her creatinine is 2.30. This is higher than it has recently been when she has been in the hospital. Electrolytes are normal. Natruretic peptide is fallen from 4202 2 2947. Dig level is dropped from 2.5-1.8. ABGs this morning on FiO2 of 30% and BiPAP show a pH of 7.25. PCO2 is 68.8. PO2 is 66. Bicarb is 25.4 later on the on FiO2 30 2. and no BiPAP. PH was 7.28. PCO2 was 66.9. PO2 is 58.6. Bicarb was 26.9. I think the patient can bypass the BiPAP for the present time. I think will gradually be able to decrease her FiO2. She will seek the same level of oxygenation but breathe faster lower FiO2. Patient's more alert this morning. I have days discussed the case with Dr. Ayala and we are coordinating care. 07/26/2016. This morning on 2 L/min oxygen the patient's blood gases showed a pH 7.29. PCO2 was 68.6. PO2 was 65.8. Bicarb is 32.2. I tried her on 1 L/min oxygen for an hour and follow-up blood gases showed a pH of 7.323. PCO2 dropped to 60.4. PO2 was 50.8. Bicarb is 27.7. It looks like her best on her oxygen is going to be between 1 and 2 L. She will breathe to a certain level to maintain PO2's at 60 5. Creatinine is dropped to 1.8 with a BUN of 57. Electrolytes are normal. Natruretic peptide is dropped to 2043. Overall the patient is a little stronger and a little better. Her chest x-ray is about the same with increased interstitial markings seen in the right perihilar area in the right base. Her heart so big I cannot see the left lung clear 07/27/2016. Patient was seen along with her daughter. She has had an uneventful day. Her chest x-ray is unchanged from previous descriptions. ABGs on FiO2 24 % show a pH 7.33. PCO2 has dropped 54.8. PO2 is 47.5. Bicarb is 26.2. Electrolytes are normal. Creatinine is 2.0 with a BUN of 59. Natruretic peptide is greater than 5000. I made no alterations in this patient's therapy today. She does better with a low FiO2. Underlying heart disease is to keep problem Superimposed on severe COPD. We will continue to follow chest x-rays and ABGs. 07/28/2016. This patient has core bovine and congestive heart failure. She has a markedly decreased cardiac output. She has underlying COPD and she has continued to smoke up until the time of this admission. I discussed this with her daughter today. She said this is the other daughter brings her cigarettes. This patient had respiratory failure for carbon dioxide with PCO2's in the 80s. She also has respiratory failure. She has done best on the low FiO2. Today on FiO2 of 24% her pH is 7.33. PCO2 is 58.1. PO2 is 69.5 and bicarb is 30. Her chest x-ray continues to show congestive heart failure. She has stable anemia. Creatinine is 2.10. BUN is 63. Natruretic peptide is greater than 5000. Will physical exam she is comfortable laying on her side. 07/31/2016. This patient has been moved to ICU. When I last saw her 07/28/2016 she was on FiO2 of 24%. Her ABG showed a pH 7.331. PCO2 was 58.1. PO2 is 69.5. Bicarb was 30. Since then her FiO2 was increased to 30 and then reduce to 28 today on 28 she has a pH of 7.24. PCO2 is 89. PO2 is 98.9. Bicarb is 36. I have reduced her FiO2 to 1 L/min oxygen and will repeat it. As previously noted this is a CO2 retainer. She has to be on low oxygen. Do not treat the O2 sats. Electrolytes are normal. Creatinine stable at 1.90. BUN is 70. White count is 5177 segs 9 lymphs 4 monocytes. H&H 9.6/35.8 and platelets are 149,000 today's chest x-ray shows congestive heart failure. 08/01/2016. This patient's been made a DO NOT RESUSCITATE. Today's chest x-ray shows massive cardiomegaly. She has fluid-filled both costophrenic angles. There is interstitial edema in the right lung most prominent in the right lower lung. Only the apices of the left lung could be seen and I do not see any pulmonary edema there. ABGs on FiO2 24% shows a pH 7.259. PCO2 is 75.5. PO2 is 58.8. Bicarb is 28.2. Labs been reviewed. Medicines are been reviewed. 08/02/2016. Today's chest x-ray looks a little better. May be slight improvement in patient's congestive heart failure. She is a little more alert. ABGs were canceled. Electrolytes are normal. Creatinine is 1.9. BUN 71. Physical exam. Vital signs. See below Psychiatric. Awake. Arousable. At times the patient is cooperative. Face is symmetrical. Patient has an element of exophthalmos Neck. Symmetrical. No mass. Lymphatics. No submandibular cervical supraclavicular adenopathy. No epitrochlear adenopathy. Chest. Mild large airway congestion. No wheezes. Heart. Far lateral PMI Abdomen. Rare bowel sounds. Liver edge extends 4 fingerbreadths below costal margin in the midclavicular line Extremities. Nothing to suggest deep venous thrombophlebitis. Venous. Marked distention of external and internal jugular veins. Positive hepatojugular reflux. Doppler venograms dated 07/24/2016 are negative for deep venous thrombophlebitis. Neurologic. Cranial nerves appear to be intact. Patient moves all fours. The remainder of the physical exam is negative. Plan. 1. 07/31/2016. decrease FiO2 to 1 L/min. repeat ABGs in 1 hour. This is a CO2 retainer. Do not treat O2 sat 2. Patient's on Lasix. Previously she was on dobutamine 3 Daily chest x-ray and ABGs. 4 Agree with antibiotics and steroids on the chance that we are dealing with pneumonia. 5. 08/01/2016. No changes were made. Prognosis remains very poor. Agree with DO NOT RESUSCITATE 8. Continue low FiO2's. Continue treating congestive heart failure. Have asked daughter to keep her cigarettes away from her at home. 9. 08/02/2016. See my note above Exam (Progress Note) - Constitutional Vitals: Period Temp Pulse Resp BP Sys/Philippe Pulse Ox Last 24 Hr 96.3 F-98.5 F 67-80 18-24 88-105/51-65 89-98 Results - Labs CBC & BMP: 07/31/16 03:32 08/02/16 05:23
[2016-08-02] MEDS ORDERED: FUROSEMIDE 20 MG/2 ML VIAL ONE ×2 (13:47→13:48)
--- NOTE | 2016-08-02 15:01 | Hospitalist Progress Note ---
Assessment and Plan (1) Congestive heart failure, NYHA class 4 Status: Acute Assessment and plan: cont coreg, continue Lasix 120 mg IV every tid, sacubitril/valsartan Current Visit: Yes Qualifiers: Congestive heart failure type: combined Congestive heart failure chronicity : acute on chronic Qualified Code(s): I50.43 - Acute on chronic combined systolic (congestive) and diastolic (congestive) heart failure (2) Acute on chronic renal failure Status: Acute Assessment and plan: Dr Jay renal failure is chronic and stable would not do any more testing. Current Visit: Yes (3) Nonischemic cardiomyopathy Status: Chronic Assessment and plan: Patient's EF is 15%. She has an acute systolic congestive heart failure exacerbation Current Visit: Yes (4) Acute exacerbation of chronic obstructive airways disease Status: Acute Assessment and plan: Continue duo nebs and steroids at 40 mg IV every 12, mainly due to heart failure Current Visit: Yes (5) Hypertension Status: Acute Assessment and plan: Controlled Current Visit: Yes (6) Acute respiratory failure Status: Acute Assessment and plan: We will continue to worsen due to her turning down BiPAP. Her CO2 will continue to rise until she becomes unresponsive. Current Visit: Yes Hospitalist: Subjective Interval history: Had a 20 minute conversation with patient's daughters today about end-of-life hospice care. Patient is approaching end-stage with her increase in CO2. She has become more and more lethargic. He had a conversation about taking her home with hospice or taking to her to hospice facility. Exam - Constitutional Vitals: Period Temp Pulse Resp BP Sys/Philippe Pulse Ox Last 24 Hr 96.3 F-98.5 F 67-80 18-24 88-105/51-71 88-98 Exam: Heart Rate-[RRR] Lungs-[very diminished] GI-[+bs soft, NT] Ext-[no edema] neuro more confused and lethargic psych depressed mood and affect general moderate acute distress Results - Labs CBC & BMP: 07/31/16 03:32 08/02/16 05:23 Lab Results: I have reviewed the past 24 hour labs Labs: Blood cultures 2 negative
--- NOTE | 2016-08-02 18:36 | Nephrology Progress Note ---
Nephrology - PN: Subj Interval history: The patient is resting, visiting with family. Condition is about the same. Serum creatinine is stable at 1.9. Exam (PN)-Nephrology - Vital Signs Vital signs: Period Temp Pulse Resp BP Sys/Philippe Pulse Ox Last 24 Hr 96.3 F-98.5 F 67-76 18-24 88-110/51-71 88-98 - General Appearance General appearance: fatigue, frail Neck: supple Respiratory: clear Cardiology: regular rate, regular rhythm Gastrointestinal: normoactive bowel sounds, no tenderness Musculoskeletal: no clubbing Psychiatric: mood/affect appropriate - Lab 07/31/16 03:32 08/02/16 05:23 Most recent lab results ABG pH 7.259 (7.35-7.45) L 08/01/16 04:35 ABG pCO2 75.5 MM HG (35-48) H* 08/01/16 04:35 ABG pO2 58.8 MM HG (80-95) L 08/01/16 04:35 ABG HCO3 28.2 MMOL/L (20-26) H 08/01/16 04:35 ABG O2 Saturation 84.7 % (95-100) L 08/01/16 04:35 Calcium 8.0 MG/DL (8.5-10.1) L 08/02/16 05:23 Magnesium 2.3 MG/DL (1.8-2.4) 08/02/16 05:23 Assessment and Plan (1) Chronic kidney disease Status: Chronic Assessment and plan: Strict I/Os. Avoid nephrotoxic agents Current Visit: Yes Qualifiers: Chronic kidney disease stage: stage 2 (mild) Qualified Code(s): N18.2 - Chronic kidney disease, stage 2 (mild) (2) Acute renal failure (ARF) Status: Acute Assessment and plan: More likely has chronic renal failure. This is stable. Current Visit: Yes
--- NOTE | 2016-08-02 18:59 | Cardiology Progress Note ---
Nelson Tipton Vanessa, RN, am scribing for, and in the presence of, Benjamin Laguerre MD 18:59. Assessment and Plan - Time spent with patient Time spent with patient: Less than 30 minutes (1) Congestive heart failure, NYHA class 4 Status: Acute Assessment and plan: 1. Improving acute systolic heart failure (nonischemic cardiomyopathy) with ejection fraction of 15% previous on dobutamine intubated, now tolerating Coreg 6.25 g twice a day as well as Entresto 2. Lower extremity edema is essentially resolved, but she still has elevated JVP, and crackles in her lungs 3. Continue to watch electrolytes and renal function; check BMP with magnesium in the morning 4. Reported previous digitoxin toxicity 5. We'll be critical for to avoid tobacco use 6. Previous respiratory acidosis noted 7. Previous ICD placement 8. DNR patient August 02 update: 1. Severe nonischemic cardiomyopathy with acute on chronic CHF and ejection fraction 15% 2. COPD with mild wheezing currently, and previous CO2 retention 3. Unable to up titrate heart failure medications due to borderline hypotension 4. DNR 5. History of previous ICD placement (we'll need to consider whether to activate ICD?) Current Visit: Yes Qualifiers: Congestive heart failure type: combined Congestive heart failure chronicity : acute on chronic Qualified Code(s): I50.43 - Acute on chronic combined systolic (congestive) and diastolic (congestive) heart failure (2) Acute respiratory acidosis Status: Acute Current Visit: Yes (3) Nonischemic cardiomyopathy Status: Chronic Current Visit: Yes (4) Digoxin toxicity Status: Resolved Current Visit: Yes (5) ICD (implantable cardioverter-defibrillator) in place Status: Chronic Current Visit: No Cardiology - PN: Subj Interval history: More alert and responsive today. Offers verbal response. She is eating lunch with assistance of family member. Says she feels like she is breathing ok and she denies complaints of pain or discomfort at this time. No significant improvement in heart failure per chest x-ray. Some hypotension overnight and currently borderline BP 97/61. Heart rate 70's, regular. BMP results reviewed: sodium 147, potassium 4.6, magnesium 2.3, creatinine stable at 1.9, glucose 136. Per medical record, weight noted to be increased by 3 pounds in past 48 hours. Exam (Progress Note) - Constitutional Vitals: Period Temp Pulse Resp BP Sys/Philippe Pulse Ox Last 24 Hr 96.3 F-98.5 F 68-80 18-24 88-105/51-71 89-98 General appearance: under weight, cachectic, disheveled Exam: General appearance: normal weight, no acute distress - Head Head exam: Absent: abrasion, hematoma, laceration - Eye Eye exam: Absent: periorbital swelling, laceration to eyelids Pupils: Present: TEJINDER. Absent: dilated, fixed - ENT ENT exam: Present: normal external ear exam - Neck Neck exam: Absent: tenderness - Respiratory Respiratory exam: Present: rales (bilaterally; throughout), some accessory muscle use. Absent: rhonchi, stridor, wheezes - Cardiovascular Cardiovascular exam: Present: regular rate and rhythm (bigeminy ), some JVD. Absent: bradycardia, tachycardia - GI/Abdominal GI/Abdominal exam: Present: normal bowel sounds, soft. Absent: ascites, firm, tenderness - Extremities Exam Extremities exam: Present: normal capillary refill. Absent: full ROM, calf tenderness, edema - Neurological Exam Neurological exam: Present: more alert today, offers verbal response - Psychiatric Psychiatric exam: Present: flat affect, other (seems obtunded). Absent: anxious - Skin Skin exam: Present: warm, dry - Head Head exam: Present: normal inspection, normocephalic, atraumatic - Respiratory Respiratory exam: Present: wheezes. Absent: rhonchi, stridor - Cardiovascular Cardiovascular exam: Present: regular rate and rhythm, systolic murmur, other ( positive left). Absent: rubs - GI/Abdominal GI/Abdominal exam: Absent: tenderness - Extremities Exam Extremities exam: Present: other (trivial edema) Result/EKG - Labs CBC & BMP: 07/31/16 03:32 08/02/16 05:23 Lab Results: I have reviewed the past 24 hour labs Labs: Laboratory Results - last 24 hr 08/02/16 05:23 Sodium 147 H Potassium 4.6 Chloride 103 Carbon Dioxide 33 H Anion Gap 15.6 H BUN 71 H Creatinine 1.90 H GFR Calculation 29 BUN/Creatinine Ratio 37.00 H Glucose 136 H Calculated Osmolality 314.4 H Calcium 8.0 L Magnesium 2.3 - Diagnostic Findings Procedure: Chest x-ray: report reviewed by me, image reviewed by me (08/02 no new infiltrates; no significant change) - EKG EKG results: interpreted by me, sinus rhythm, no acute changes ICarlotta Randall Scott, MD, personally performed the services described in this documentation, ascribed by Diana Damon RN in my presence, and it is both accurate and complete [id number] .
--- NOTE | 2016-08-02 20:19 | Event Note ---
Patient's family requested my presents in the rain. Apparently they have decided to rescind her DNR status they want to make her a full code. They want to make it to where if she needs to go on the ventilator that should she be placed on the ventilator. I told them we would get an ABG and make a decision if she needs to go down to the unit for BiPAP versus intubation. Patient looks severely chronically ill and appears to have a very poor prognosis at her baseline.
[2016-08-02 21:10] LABS: ABG Base Excess 8.5 MMOL/L (-2.5-2.5); ABG HCO3 32.3 MMOL/L (20-26); ABG Oxygen Saturation 96.4 % (95-100); ABG PO2 94.5 MM HG (80-95); ABG TCO2 34.7 MMOL/L (23-27); Allen Test Positive
[2016-08-02 21:13] LABS: ABG PCO2 75.8 MM HG (35-48)
[2016-08-02] MEDS: ENOXAPARIN 30 MG/0.3 ML SYRINGE SUBCUT SCH (22:05)
[2016-08-03] MEDS: ALBUTEROL/IPRATROPIUM 3 ML NEB RESP TX SCH ×3 (03:44→07:26)
[2016-08-03] MEDS: hydrALAZINE 10 MG TABLET PO SCH (09:08)
[2016-08-03] MEDS: SPIRONOLACTONE 25 MG TABLET PO SCH (09:08)
[2016-08-03] MEDS: ASPIRIN EC 325 MG TABLET PO SCH (09:10)
[2016-08-03] MEDS: CARVEDILOL 6.25 MG TABLET PO SCH ×2 (09:10→21:35)
[2016-08-03] MEDS: FUROSEMIDE 40 MG/4 ML VIAL IV SCH ×2 (09:10→21:34)
[2016-08-03] MEDS: ISOSORBIDE MONONITRATE 30 MG TABLET PO SCH (09:10)
[2016-08-03] MEDS: SACUBITRIL/VALSARTAN 49-51 MG TABLET PO SCH (09:10)
[2016-08-03] MEDS: PANTOPRAZOLE 40 MG TABLET PO SCH (09:27)
[2016-08-03] MEDS: methylPREDNISolone SOD SUC 40 MG/1 ML VIAL IV SCH ×2 (09:29→21:33)
[2016-08-03] MEDS: DESITIN 4OZ/NYSTATIN 15 GRAM MIXTURE PASTE TOP SCH ×2 (09:29→21:36)
--- NOTE | 2016-08-03 10:17 | Pulmonology Progress Note ---
Pulmonary - PN: Subj Interval history: This is a 55-year-old black female whom I saw in pulmonary consultation on the night of 07/24/2016. I thought that her main problems were. 1. Severe nonischemic cardiomyopathy with a very low ejection fraction. 2. COPD with respiratory failure for oxygen and carbon dioxide. This patient to be appears to be a CO2 retainer may do better with a lower FiO2. 3. Tobacco abuser who continues to smoke 4. Dig toxicity 5. Acute renal failure. Consider the possibility dehydration could be involved. Consider the possibility of BARBRA inhibitors. 7. See past history 8. Mild liver failure with elevated ammonia level.. 07/25/2016. Today's chest x-ray is about the same. Patient has core bovine. There are increased right perihilar and right lower lung markings which I think are probably congestive heart failure. She was started on dobutamine last night and also given Lasix and has begun to diurese. Her creatinine is 2.30. This is higher than it has recently been when she has been in the hospital. Electrolytes are normal. Natruretic peptide is fallen from 4202 2 2947. Dig level is dropped from 2.5-1.8. ABGs this morning on FiO2 of 30% and BiPAP show a pH of 7.25. PCO2 is 68.8. PO2 is 66. Bicarb is 25.4 later on the on FiO2 30 2. and no BiPAP. PH was 7.28. PCO2 was 66.9. PO2 is 58.6. Bicarb was 26.9. I think the patient can bypass the BiPAP for the present time. I think will gradually be able to decrease her FiO2. She will seek the same level of oxygenation but breathe faster lower FiO2. Patient's more alert this morning. I have days discussed the case with Dr. Ayala and we are coordinating care. 07/26/2016. This morning on 2 L/min oxygen the patient's blood gases showed a pH 7.29. PCO2 was 68.6. PO2 was 65.8. Bicarb is 32.2. I tried her on 1 L/min oxygen for an hour and follow-up blood gases showed a pH of 7.323. PCO2 dropped to 60.4. PO2 was 50.8. Bicarb is 27.7. It looks like her best on her oxygen is going to be between 1 and 2 L. She will breathe to a certain level to maintain PO2's at 60 5. Creatinine is dropped to 1.8 with a BUN of 57. Electrolytes are normal. Natruretic peptide is dropped to 2043. Overall the patient is a little stronger and a little better. Her chest x-ray is about the same with increased interstitial markings seen in the right perihilar area in the right base. Her heart so big I cannot see the left lung clear 07/27/2016. Patient was seen along with her daughter. She has had an uneventful day. Her chest x-ray is unchanged from previous descriptions. ABGs on FiO2 24 % show a pH 7.33. PCO2 has dropped 54.8. PO2 is 47.5. Bicarb is 26.2. Electrolytes are normal. Creatinine is 2.0 with a BUN of 59. Natruretic peptide is greater than 5000. I made no alterations in this patient's therapy today. She does better with a low FiO2. Underlying heart disease is to keep problem Superimposed on severe COPD. We will continue to follow chest x-rays and ABGs. 07/28/2016. This patient has core bovine and congestive heart failure. She has a markedly decreased cardiac output. She has underlying COPD and she has continued to smoke up until the time of this admission. I discussed this with her daughter today. She said this is the other daughter brings her cigarettes. This patient had respiratory failure for carbon dioxide with PCO2's in the 80s. She also has respiratory failure. She has done best on the low FiO2. Today on FiO2 of 24% her pH is 7.33. PCO2 is 58.1. PO2 is 69.5 and bicarb is 30. Her chest x-ray continues to show congestive heart failure. She has stable anemia. Creatinine is 2.10. BUN is 63. Natruretic peptide is greater than 5000. Will physical exam she is comfortable laying on her side. 07/31/2016. This patient has been moved to ICU. When I last saw her 07/28/2016 she was on FiO2 of 24%. Her ABG showed a pH 7.331. PCO2 was 58.1. PO2 is 69.5. Bicarb was 30. Since then her FiO2 was increased to 30 and then reduce to 28 today on 28 she has a pH of 7.24. PCO2 is 89. PO2 is 98.9. Bicarb is 36. I have reduced her FiO2 to 1 L/min oxygen and will repeat it. As previously noted this is a CO2 retainer. She has to be on low oxygen. Do not treat the O2 sats. Electrolytes are normal. Creatinine stable at 1.90. BUN is 70. White count is 5177 segs 9 lymphs 4 monocytes. H&H 9.6/35.8 and platelets are 149,000 today's chest x-ray shows congestive heart failure. 08/01/2016. This patient's been made a DO NOT RESUSCITATE. Today's chest x-ray shows massive cardiomegaly. She has fluid-filled both costophrenic angles. There is interstitial edema in the right lung most prominent in the right lower lung. Only the apices of the left lung could be seen and I do not see any pulmonary edema there. ABGs on FiO2 24% shows a pH 7.259. PCO2 is 75.5. PO2 is 58.8. Bicarb is 28.2. Labs been reviewed. Medicines are been reviewed. 08/02/2016. Today's chest x-ray looks a little better. May be slight improvement in patient's congestive heart failure. She is a little more alert. ABGs were canceled. Electrolytes are normal. Creatinine is 1.9. BUN 71. 08/03/2016. Today Dr. Felix and I have discussed and reviewed this patient and coordinated our care. Her ABGs on FiO2 28% show a pH 7.30. PCO2 75.8. PO2 is 94.5. Bicarbonate is 32.2. We have decided to reduce the FiO2 to 1 L/m. Patient clearly does better this way. She has a severe CO2 retainer. Will also started on Diamox 250 mg by mouth twice a day. Other medicines have been reviewed no other changes been made. Patient was seen with her nurse, female family member whom I think is her daughter and Tetocarmel GarzaDarron nurse practitioner. Physical exam. Vital signs. See below Psychiatric. Awake. More alert than usual.. At times the patient is cooperative. Face is symmetrical. Patient has an element of exophthalmos Neck. Symmetrical. No mass. Lymphatics. No submandibular cervical supraclavicular adenopathy. No epitrochlear adenopathy. Chest. Mild large airway congestion. No wheezes. Moving air better. Heart. Far lateral PMI Abdomen. Rare bowel sounds. Liver edge extends 4 fingerbreadths below costal margin in the midclavicular line Extremities. Nothing to suggest deep venous thrombophlebitis. Venous. Marked distention of external and internal jugular veins. Positive hepatojugular reflux. Doppler venograms dated 07/24/2016 are negative for deep venous thrombophlebitis. Neurologic. Cranial nerves appear to be intact. Patient moves all fours. The remainder of the physical exam is negative. Plan. 1. 07/31/2016. decrease FiO2 to 1 L/min. repeat ABGs in 1 hour. This is a CO2 retainer. Do not treat O2 sat 2. Patient's on Lasix. Previously she was on dobutamine 3 Daily chest x-ray and ABGs. 4 Agree with antibiotics and steroids on the chance that we are dealing with pneumonia. 5. 08/01/2016. No changes were made. Prognosis remains very poor. Agree with DO NOT RESUSCITATE 8. Continue low FiO2's. Continue treating congestive heart failure. Have asked daughter to keep her cigarettes away from her at home. 9. 08/02/2016. See my note above #10. 08/03/2016. See today's noted above. Exam (Progress Note) - Constitutional Vitals: Period Temp Pulse Resp BP Sys/Philippe Pulse Ox Last 24 Hr 96.7 F-97.9 F 67-81 18-24 97-126/61-82 79-98 Results - Labs CBC & BMP: 07/31/16 03:32 08/02/16 05:23
[2016-08-03] MEDS: acetaZOLAMIDE 250 MG TABLET PO SCH ×2 (10:32→21:35)
[2016-08-03] MEDS: POTASSIUM IODIDE ORAL SOLN 1,000 MG/ML BOTTLE PO SCH ×3 (13:48→21:37)
--- NOTE | 2016-08-03 14:05 | Nephrology Progress Note ---
Nephrology - PN: Subj Interval history: Patient is resting comfortably. She is visiting with her family. She is able to eat her lunch today. No other acute changes at this time. Renal function is been stable with creatinine 1.9. Exam (PN)-Nephrology - Vital Signs Vital signs: Period Temp Pulse Resp BP Sys/Philippe Pulse Ox Last 24 Hr 96.7 F-97.9 F 65-81 18-24 100-126/64-82 79-99 - General Appearance General appearance: fatigue, frail EENT: ATNC Neck: supple Respiratory: clear Cardiology: regular rate, regular rhythm Gastrointestinal: normoactive bowel sounds, no tenderness, no guarding Neurologic: alert and oriented x3 - Lab 07/31/16 03:32 08/02/16 05:23 Most recent lab results ABG pH 7.300 (7.35-7.45) L 08/02/16 Unknown ABG pCO2 75.8 MM HG (35-48) H* 08/02/16 Unknown ABG pO2 94.5 MM HG (80-95) 08/02/16 Unknown ABG HCO3 32.3 MMOL/L (20-26) H 08/02/16 Unknown ABG O2 Saturation 96.4 % (95-100) 08/02/16 Unknown Calcium 8.0 MG/DL (8.5-10.1) L 08/02/16 05:23 Magnesium 2.3 MG/DL (1.8-2.4) 08/02/16 05:23 Assessment and Plan (1) Chronic kidney disease Status: Chronic Assessment and plan: Strict I/Os. Avoid nephrotoxic agents Current Visit: Yes Qualifiers: Chronic kidney disease stage: stage 2 (mild) Qualified Code(s): N18.2 - Chronic kidney disease, stage 2 (mild) (2) Acute renal failure (ARF) Status: Acute Assessment and plan: More likely has chronic renal failure. This is stable. Current Visit: Yes
--- NOTE | 2016-08-03 17:03 | Hospitalist Progress Note ---
Assessment and Plan (1) Congestive heart failure, NYHA class 4 Status: Acute Assessment and plan: cont coreg, continue Lasix 120 mg IV bid, hold sacubitril/valsartan due to low blood pressure Current Visit: Yes Qualifiers: Congestive heart failure type: combined Congestive heart failure chronicity : acute on chronic Qualified Code(s): I50.43 - Acute on chronic combined systolic (congestive) and diastolic (congestive) heart failure (2) Acute on chronic renal failure Status: Acute Assessment and plan: Dr Jay chronic and stable Current Visit: Yes (3) Nonischemic cardiomyopathy Status: Chronic Assessment and plan: Patient's EF is 15%. Current Visit: Yes (4) Acute exacerbation of chronic obstructive airways disease Status: Acute Assessment and plan: Continue duo nebs and steroids, SSKI for secretions Current Visit: Yes (5) Acute respiratory failure Status: Acute Assessment and plan: CO2 narcosis, keep saturation low, keep at 1 liter dont titrate up unless given permission by Dr Clark Current Visit: Yes (6) Hypotension Status: Acute Assessment and plan: hold arb, spironolactone and hydralazine Current Visit: Yes Hospitalist: Subjective Interval history: Patient was changed to a full code last night and moved to Telemetry. Oldest daughter feels pressured by her aunt to make her a full code and to place her back on BiPAP against her wishes. I told her that she would not improve right away on BiPAP. I spoke with Dr. Clark and he recommended decreasing her oxygen to 1 L and not titrating up even though her sats may be too low. He reports that the acetazolamide and low saturation will improve her co2 without traumatizing her with BiPAP. I told daughter that she did not make need to make her a full code for her to receive BiPAP. She said she would discuss it with her sister. They were talking about rehabilitation candidate and she is not a candidate for rehabilitation. Patient is too weak and frail and too sick. She would qualify for home hospice. Exam - Constitutional Vitals: Period Temp Pulse Resp BP Sys/Philippe Pulse Ox Last 24 Hr 96.7 F-97.9 F 65-81 18-22 100-126/64-82 79-99 Exam: Heart Rate-[RRR] Lungs-[coarse and diminished ] GI-[+bs soft, NT] Ext-[no edema] neuro lethargy unchanged psych depressed mood and flat affect general mild acute distress Results - Labs CBC & BMP: 07/31/16 03:32 08/02/16 05:23 Lab Results: I have reviewed the past 24 hour labs - Diagnostic Findings Procedure: Chest x-ray: report reviewed by me (no new infiltrates )
[2016-08-03] MEDS: ENOXAPARIN 30 MG/0.3 ML SYRINGE SUBCUT SCH (21:36)
[2016-08-04 03:03] LABS: ABG Base Excess 13.4 MMOL/L (-2.5-2.5); ABG HCO3 41.3 MMOL/L (20-26); ABG PH 7.367 (7.35-7.45); ABG PO2 74.2 MM HG (80-95); ABG TCO2 43.6 MMOL/L (23-27); Allen Test Positive
[2016-08-04 03:05] LABS: ABG PCO2 73.6 MM HG (35-48)
[2016-08-04] MEDS: POTASSIUM IODIDE ORAL SOLN 1,000 MG/ML BOTTLE PO SCH ×3 (08:58→17:15)
[2016-08-04] MEDS: ASPIRIN EC 325 MG TABLET PO SCH (08:59)
[2016-08-04] MEDS: acetaZOLAMIDE 250 MG TABLET PO SCH (08:59)
--- NOTE | 2016-08-04 08:59 | Discharge Summary ---
<Louann Zapata - Last Filed: 08/04/16 08:43> Hospital Course - Hospital Course Hospital Course: Ms. Corona was admitted on 07/24/16 with acute respiratory failure. She does have a hx of narcotic use, and was given Narcan and woke up. Her dig level was high as was her creatinine 2.3 from 0.6 a few weeks prior to admission consistent with acute renal failure. She also has a hx of severe chronic systolic CHF. BNP > 5000. Dr. Clark was consulted for pulmonary for acute on chronic respiratory failure. She was started on empiric abx for possible pneumonia. Dr. Tom Callejas with Cardiology saw for acute systolic/diastolic CHF, nonischemic cardiomyopathy with an EF of 15%. Her ABG's resulted in respiratory acidosis that could be secondary to her narcotic use, or 100% NRB during transport. She was noted to have ascites and underwent paracentesis with removal of 1100 cc's of mian colored fluid. Neprhology was consulted and saw on 07/27/16 for acute on chronic renal failure. Her CKD is stage 2. Her ammonia was elevated @ 46. Ms. Corona began to refuse her Bipap and and was combative and confused. She did have signficant respiratory acidosis. It was explained that if she would not wear her bipap, she would likely require intubation. She calmed down. She was moved to the ICU for close observation of her respiratory status. On 07/31, her family decided on DNR. She will be going home today with home hospice for hospice care. - Time spent with patient Time with patient DS: Greater than 30 minutes (due to plan, doc and med rec.) Diagnosis - Discharge Diagnosis (1) Acute respiratory failure Status: Acute (2) Narcotic abuse Status: Acute (3) Acute on chronic systolic and diastolic heart failure, NYHA class 4 Status: Acute (4) Acute on chronic renal failure Status: Acute (5) Acute respiratory acidosis Status: Acute (6) CO2 narcosis Status: Acute (7) Hypertension Status: Acute (8) Hypotension Status: Acute (9) Nonischemic cardiomyopathy Status: Chronic (10) Tobacco abuse Status: Chronic (11) Digoxin toxicity Status: Resolved (12) Aspiration pneumonia Status: Acute (13) ICD (implantable cardioverter-defibrillator) in place Status: Chronic (14) Hospice care Status: Acute Discharge Plan - Discharge Data Disposition: Hospice - Home - Discharge Medications New Docusate Sodium Cap [Colace Cap] 100 mg PO BID PRN #0 capsule PRN Reason: Constipation Morphine Sulfate [Morphine Conc Liquid] 0.25 mg PO Q4H #30 ml Pantoprazole Tab [Protonix Tab] 40 mg PO DAILY #30 tablet Potassium Iodide Oral Soln [Sski] 300 mg PO TID #90 bottle acetaZOLAMIDE TAB [Diamox Tab] 250 mg PO BID #60 tablet Acetaminophen Tab [Tylenol Tab] 325 mg PO Q4H PRN #0 tablet PRN Reason: fever, headache/body aches Albuterol/Ipratropium Neb [Duoneb] 3 ml RESP TX TID #90 nebulization solution methylPREDNISolone DOSEPAK [Medrol Dosepak] 4 mg PO DIRECTED #1 pack Continue Aspirin EC Tab 325 mg PO DAILY Furosemide Tab [Lasix Tab] 80 mg PO BID #60 tablet Isosorbide Mononitrate [Imdur] 15 mg PO DAILY Changed Carvedilol 6.25 mg PO BID W/MEALS #120 tablet Discontinued hydrALAZINE TAB [Apresoline Tab] 10 mg PO Q8HR Spironolactone [Aldactone] 25 mg PO DAILY Digoxin Tab [Lanoxin Tab] 0.125 mg PO DAILY Sacubitril/Valsartan [Entresto 49 mg-51 mg Tablet] 1 each PO DAILY - Follow Up or Referral - Forms/Instructions Exam - Constitutional Vitals: Period Temp Pulse Resp BP Sys/Philippe Pulse Ox Last 24 Hr 96.0 F-98.2 F 65-82 16-20 105-125/60-77 86-99 Discharge Results Procedures and tests throughout hospitalization: Pending Orders 08/03/16 Stool Culture Stat Labs on day of discharge: Labs from last 24 hours 08/04/16 02:56 ABG pH 7.367 ABG pCO2 73.6 H* ABG pO2 74.2 L ABG HCO3 41.3 H ABG Total CO2 43.6 H ABG O2 Saturation 93.0 L ABG Base Excess 13.4 H FiO2 24.00 Preliminary micro results at discharge 08/03/16 Unknown Stool Culture - Preliminary Stool No enteric pathogens at 24 hrs DS: Provider Date of admission: 07/24/16 13:37 Primary care physician: . No PCP Attending physician on admission: Ashley Valle MD Consults: 07/24/16 13:57 Consult to Physician [CONS] Routine Comment: acute respiratory failure Consulting Provider: Layton Clark Consulting Provider Notified: Yes Consult to Specialist Group: Pulmonology Person Notified: ROSIE Date Notified: 07/24/16 Time Notified: 14:50 07/24/16 14:02 Consult to Case Mgmt/Social Srvs [CONS] Routine Reason for Case Mgmt/Social Srvs: Rehab 07/24/16 14:14 Consult to Pharmacy [CONS] Routine Reason for Pharmacy Consult: Adjust Meds Renal Funct 07/24/16 15:26 Consult to Physician [CONS] Routine Comment: Consulting Provider: Cardiology - [facility] When should Consulting Provider be notified: Now Person Notified: DR. CALLEJAS Date Notified: 07/24/16 Time Notified: 15:30 07/27/16 10:18 Consult to Physical Therapy [CONS] Routine Reason for Physical Therapy: Evaluate and Treat 07/27/16 10:25 Consult to Physician [CONS] Routine Comment: Consulting Provider: Larry Jay Jr. Consult to Specialist Group: Nephrology When should Consulting Provider be notified: Now Person Notified: BONNIE Date Notified: 07/27/16 Time Notified: 11:05 08/02/16 10:28 Consult to Case Mgmt/Social Srvs [CONS] Routine Reason for Case Mgmt/Social Srvs: Hospice Referral 08/04/16 09:50 Consult to Case Mgmt/Social Srvs [CONS] Routine Reason for Case Mgmt/Social Srvs: Home Health Hospice Referral Consult Comment: hospital bed,oxygen, bedside commode, wheelchair, nebulizer Discharging clinician: Louann Zapata NP Expected date of discharge: 08/04/16 <Tania Felix - Last Filed: 08/04/16 10:28> Hospital Course - Hospital Course Hospital Course: Patient seen and examined. Hospital course reviewed and edited. Her ammonia level improved with treatment. Patient was moved out of the ICU spent stable on the floor for several days. Patient's CO2 begin to rise because she had refused BiPAP. I discussed hospice with the daughters but the patient's sister is insisting on aggressive care despite patient's wishes for no aggressive care. Patient was changed to a full code by her family. Dr. Eduardo and I spoke about her CO2 level and if we keep her oxygen low, her CO2 will start to improve without putting her through the necessity of BiPAP. CO2 is already better this morning and she is more alert. Patient has exceeded her benefit of any further hospitalization due to the chronic nature of her disease and will be discharged home today on hospice. Patient was excited when I told her she would be going home. Diagnosis - Discharge Diagnosis (1) Congestive heart failure, NYHA class 4 Status: Acute (2) Acute on chronic renal failure Status: Acute (3) Nonischemic cardiomyopathy Status: Chronic (4) Acute exacerbation of chronic obstructive airways disease Status: Acute (5) Acute respiratory failure Status: Acute (6) Hypotension Status: Acute Discharge Plan - Discharge Data Condition at Discharge: Stable Discharge Diet: heart healthy, low salt diet Activity: resume usual activities as tolerated, wear oxygen at all times (one liter at all times ) Hygiene: no restrictions Exam - Constitutional General appearance: no acute distress, under weight - Respiratory Respiratory exam: Present: decreased breath sounds, rhonchi - Cardiovascular Cardiovascular exam: Present: regular rate and rhythm, systolic murmur - GI/Abdominal GI/Abdominal exam: Present: normal bowel sounds, soft - Extremities Exam Extremities exam: Present: normal inspection, normal capillary refill - Psychiatric Psychiatric exam: Present: normal affect, normal mood
[2016-08-04] MEDS: PANTOPRAZOLE 40 MG TABLET PO SCH (09:00)
[2016-08-04] MEDS: CARVEDILOL 6.25 MG TABLET PO SCH (09:01)
[2016-08-04] MEDS: ISOSORBIDE MONONITRATE 30 MG TABLET PO SCH (09:01)
[2016-08-04] MEDS: methylPREDNISolone SOD SUC 40 MG/1 ML VIAL IV SCH (09:04)
[2016-08-04] MEDS: FUROSEMIDE 40 MG/4 ML VIAL IV SCH (09:07)
[2016-08-04] MEDS: DESITIN 4OZ/NYSTATIN 15 GRAM MIXTURE PASTE TOP SCH (09:10)
[2016-08-04] MEDS ORDERED: ALBUTEROL/IPRATROPIUM 3 ML NEB RESP TX SCH (13:00)
--- NOTE | 2016-08-04 13:10 | Pulmonology Progress Note ---
Pulmonary - PN: Subj Interval history: Teto Rob, ANP-BC, GNP-BC, acting as scribe for Dr. Layton Clark This is a 55 year old female who we initially saw in pulmonary consultation on 07/24/16. At that time, our main impressions were: 1. Severe nonischemic cardiomyopathy with a very low ejection fraction. 2. COPD with respiratory failure for oxygen and carbon dioxide. This patient to be appears to be a CO2 retainer may do better with a lower FiO2. 3. Tobacco abuser who continues to smoke 4. Dig toxicity 5. Acute renal failure. Consider the possibility dehydration could be involved. Consider the possibility of BARBRA inhibitors. 7. See past history 8. Mild liver failure with elevated ammonia level.. 07/25/2016. Today's chest x-ray is about the same. Patient has core bovine. There are increased right perihilar and right lower lung markings which I think are probably congestive heart failure. She was started on dobutamine last night and also given Lasix and has begun to diurese. Her creatinine is 2.30. This is higher than it has recently been when she has been in the hospital. Electrolytes are normal. Natruretic peptide is fallen from 4202 2 2947. Dig level is dropped from 2.5-1.8. ABGs this morning on FiO2 of 30% and BiPAP show a pH of 7.25. PCO2 is 68.8. PO2 is 66. Bicarb is 25.4 later on the on FiO2 30 2. and no BiPAP. PH was 7.28. PCO2 was 66.9. PO2 is 58.6. Bicarb was 26.9. I think the patient can bypass the BiPAP for the present time. I think will gradually be able to decrease her FiO2. She will seek the same level of oxygenation but breathe faster lower FiO2. Patient's more alert this morning. I have days discussed the case with Dr. Ayala and we are coordinating care. 07/26/2016. This morning on 2 L/min oxygen the patient's blood gases showed a pH 7.29. PCO2 was 68.6. PO2 was 65.8. Bicarb is 32.2. I tried her on 1 L/min oxygen for an hour and follow-up blood gases showed a pH of 7.323. PCO2 dropped to 60.4. PO2 was 50.8. Bicarb is 27.7. It looks like her best on her oxygen is going to be between 1 and 2 L. She will breathe to a certain level to maintain PO2's at 60 5. Creatinine is dropped to 1.8 with a BUN of 57. Electrolytes are normal. Natruretic peptide is dropped to 2043. Overall the patient is a little stronger and a little better. Her chest x-ray is about the same with increased interstitial markings seen in the right perihilar area in the right base. Her heart so big I cannot see the left lung clear 07/27/2016. Patient was seen along with her daughter. She has had an uneventful day. Her chest x-ray is unchanged from previous descriptions. ABGs on FiO2 24 % show a pH 7.33. PCO2 has dropped 54.8. PO2 is 47.5. Bicarb is 26.2. Electrolytes are normal. Creatinine is 2.0 with a BUN of 59. Natruretic peptide is greater than 5000. I made no alterations in this patient's therapy today. She does better with a low FiO2. Underlying heart disease is to keep problem Superimposed on severe COPD. We will continue to follow chest x-rays and ABGs. 07/28/2016. This patient has core bovine and congestive heart failure. She has a markedly decreased cardiac output. She has underlying COPD and she has continued to smoke up until the time of this admission. I discussed this with her daughter today. She said this is the other daughter brings her cigarettes. This patient had respiratory failure for carbon dioxide with PCO2's in the 80s. She also has respiratory failure. She has done best on the low FiO2. Today on FiO2 of 24% her pH is 7.33. PCO2 is 58.1. PO2 is 69.5 and bicarb is 30. Her chest x-ray continues to show congestive heart failure. She has stable anemia. Creatinine is 2.10. BUN is 63. Natruretic peptide is greater than 5000. Will physical exam she is comfortable laying on her side. 07/31/2016. This patient has been moved to ICU. When I last saw her 07/28/2016 she was on FiO2 of 24%. Her ABG showed a pH 7.331. PCO2 was 58.1. PO2 is 69.5. Bicarb was 30. Since then her FiO2 was increased to 30 and then reduce to 28 today on 28 she has a pH of 7.24. PCO2 is 89. PO2 is 98.9. Bicarb is 36. I have reduced her FiO2 to 1 L/min oxygen and will repeat it. As previously noted this is a CO2 retainer. She has to be on low oxygen. Do not treat the O2 sats. Electrolytes are normal. Creatinine stable at 1.90. BUN is 70. White count is 5177 segs 9 lymphs 4 monocytes. H&H 9.6/35.8 and platelets are 149,000 today's chest x-ray shows congestive heart failure. 08/01/2016. This patient's been made a DO NOT RESUSCITATE. Today's chest x-ray shows massive cardiomegaly. She has fluid-filled both costophrenic angles. There is interstitial edema in the right lung most prominent in the right lower lung. Only the apices of the left lung could be seen and I do not see any pulmonary edema there. ABGs on FiO2 24% shows a pH 7.259. PCO2 is 75.5. PO2 is 58.8. Bicarb is 28.2. Labs been reviewed. Medicines are been reviewed. 08/02/2016. Today's chest x-ray looks a little better. May be slight improvement in patient's congestive heart failure. She is a little more alert. ABGs were canceled. Electrolytes are normal. Creatinine is 1.9. BUN 71. 08/03/2016. Today Dr. Felix and I have discussed and reviewed this patient and coordinated our care. Her ABGs on FiO2 28% show a pH 7.30. PCO2 75.8. PO2 is 94.5. Bicarbonate is 32.2. We have decided to reduce the FiO2 to 1 L/m. Patient clearly does better this way. She has a severe CO2 retainer. Will also started on Diamox 250 mg by mouth twice a day. Other medicines have been reviewed no other changes been made. Patient was seen with her nurse, female family member whom I think is her daughter and Teto Rob nurse practitioner. 08/04/16. The patient's daughter was not present this morning. Ms. Corona is awake and more alert this morning, but does not want to converse. She did answer our limited questions appropriately. The decision has been made to go home with home hospice. This is being arranged. She is a severe CO2 retainer and needs no more than 1 LPM O2. ABGs this morning on an FiO2 reported of 24% showed a pH of 7.367, PCO2 73.6, PO2 74.2, bicarbonate 41.3, and oxygen saturation 93%. Medications have been reviewed. We made no changes. Labs been reviewed. No new labs were drawn today. Exam (Progress Note) - Constitutional Vitals: Period Temp Pulse Resp BP Sys/Philippe Pulse Ox Last 24 Hr 96.0 F-98.2 F 68-82 16-20 105-125/58-77 90-94 Exam: Chest with mild large airway congestion. No appreciable wheeze. Heart with a far lateral PMI Abdomen rare bowel sounds; liver edge extends 4 fingerbreadths below costal margin in the midclavicular line Extremities with nothing to suggest deep venous phlebitis Psychiatric see above Neurologic the patient is all 4 extremities Plan: Your plans for discharge are noted. We will sign off. Please reconsult PRN. Results - Labs CBC & BMP: 07/31/16 03:32 08/02/16 05:23
[2016-08-04 16:15] VITALS: BP 111/71
== END 2016-08-04 19:59 | disposition hospice, home (50) | DRG 133 ==
LOC: EDBD → EDUNIT# → N.ED 12:14 → N.EDINP 13:37 → N.ICU 14:09 → N.TELEN 07-26 17:06 → N.ICU 07-29 08:43 → N.2E 07-31 17:00 → N.TELEN 08-02 23:13
PROVIDERS: ADMIT Internal Medicine; ATTEND Internal Medicine